=== PATIENT | female | born 1965 | race Caucasian/White ===

== ENCOUNTER 2017-02-12 21:31 | Emergency (ER) | payer MEDICAID, MEDICARE ==
[~2017-02-12] VITALS: Ht 149.9 cm; Wt 55.6 kg
[~2017-02-12 21:31] MED LIST: DULO60CA6 PO; GABA-585 PO; LEVO175T5 PO; LISI-338 PO; METO50TA10 PO; PARO20TA3 PO; POLY119P4 PO; PREG50CA PO; RANI150T6 PO; TRAZ150T49 PO
[2017-02-12] MEDS ORDERED: DEXAMETHASONE SOD PHOS 10 MG/ML VIAL IM ONE (22:15)
[2017-02-12] MEDS ORDERED: diphenhydrAMINE HCL 25 MG CAPSULE PO ONE (22:15)
[2017-02-12 22:20] LABS: BILIRUBIN,URINE NEG (NEG); CLARITY,URINE CLEAR; COLOR,URINE YELLOW; GLUCOSE,URINE NEG (NEG)
[2017-02-12 22:21] LABS: BACTERIA,URINE 0 /HPF (0-FEW); NITRITE,URINE NEG (NEG); RBC,URINE 0 /HPF (0-2); SQUAMOUS EPITHELIAL CELL,UR OCC /LPF; UROBILINOGEN,URINE 0.2 mg/dL (0.2 mg/dL); WBC,URINE OCC /HPF (0-4)
[2017-02-12] MEDS ORDERED: HYDR25TA PO (22:51)
[2017-02-12] MEDS ORDERED: NITR100C62 PO (22:51)
[2017-02-12] MEDS ORDERED: METH4TAB2 PO (22:51)
--- NOTE | 2017-02-12 22:51 | PHYS DOC ---
Past History Past Medical History: Hypertension, Hypothyroid, Hepatitis Past Surgical History: Appendectomy, Cholecystectomy, Hysterectomy Alcohol Use: Sober Drug Use: Cocaine, Marijuana Adult General Chief Complaint Chief Complaint: SKIN RASH/ABSCESS HPI HPI Patient is a 51 year old female who presents with complaint of rash. Patient states that she has been having rash along the back of her neck and her bilateral arms and trunk over the past 2 days. Patient states that she has been having significant itching associated with her rash. Patient states that she noticed a rash develop after she was seen in the emergency department a couple days ago at [facility]. Patient states that she was diagnosed with urinary tract infection and they had started her on an oral antibiotic. Patient does not know the name of the antibiotic. Patient states that she did not stay in the emergency department for full workup as she had to 10 to her son who has "heart problems." The patient came to the emergency department today as she thinks that the medication she was given may have caused her rash. Patient notes that she is having continued dysuria at this time. Patient denies any fevers, nausea, vomiting, chest pain. Patient states she is having lower abdominal pain in the vicinity of her bladder which she attributes to possible infection. Review of Systems Review of Systems Constitutional: Denies fever or chills [] Eyes: Denies change in visual acuity, redness, or eye pain [] HENT: Denies nasal congestion or sore throat [] Respiratory: Denies cough or shortness of breath [] Cardiovascular: Denies chest pain or edema [] GI: Lower abdominal pain, denies nausea, vomiting, bloody stools or diarrhea [] : Denies dysuria or hematuria [] Musculoskeletal: Denies back pain or joint pain [] Integument: Rash, pruritus [] Neurologic: Denies headache, focal weakness or sensory changes [] Endocrine: Denies polyuria or polydipsia [] Current Medications Current Medications Current Medications Medications (Trade) Dose Ordered Sig/Michelle Start Time Stop Time Status Last Admin Dose Admin Dexamethasone Sodium Phosphate (Decadron) 12 mg 1X ONCE 02/12/17 22:15 02/12/17 22:16 DC 02/12/17 22:05 12 MG Diphenhydramine HCl (Benadryl) 50 mg 1X ONCE 02/12/17 22:15 02/12/17 22:16 DC 02/12/17 22:05 50 MG Allergies Allergies Allergies Coded Allergies Type Severity Reaction Last Updated Verified Sulfa (Sulfonamide Antibiotics) Allergy Mild 08/18/14 Yes morphine Allergy Mild 08/18/14 Yes Physical Exam Physical Exam Constitutional: Alert, afebrile, no acute distress. [] HENT: Normocephalic, atraumatic, bilateral external ears normal, oropharynx moist, no oral exudates, nose normal. [] Eyes: PERRLA, EOMI, conjunctiva normal, no discharge. [] Neck: Normal range of motion, no tenderness, supple, no stridor. [] Cardiovascular:Heart rate regular rhythm, no murmur [] Lungs & Thorax: Bilateral breath sounds clear to auscultation [] Abdomen: Bowel sounds normal, soft, mild suprapubic tenderness, no masses, no pulsatile masses. [] Skin: Warm, dry, urticarial lesions present along neck, trunk, and bilateral upper extremities. [] Back: No tenderness, no CVA tenderness. [] Extremities: No tenderness, no cyanosis, no clubbing, ROM intact, no edema. [] Neurologic: Alert and oriented X 3, normal motor function, normal sensory function, no focal deficits noted. [] Current Patient Data Vital Signs Vital Signs Date Time Temp Pulse Resp B/P (MAP) Pulse Ox O2 Delivery O2 Flow Rate FiO2 02/12/17 21:31 98.4 86 16 98 Room Air Lab Results Laboratory Tests Test 02/12/17 21:40 Urine Collection Type Unknown Urine Color Yellow Urine Clarity Clear Urine pH 5.5 Urine Specific [place] 1.025 Urine Protein Neg (NEG-TRACE) Urine Glucose (UA) Neg mg/dL (NEG) Urine Ketones (Stick) Neg mg/dL (NEG) Urine Blood Neg (NEG) Urine Nitrite Neg (NEG) Urine Bilirubin Neg (NEG) Urine Urobilinogen Dipstick 0.2 mg/dL (0.2 mg/dL) Urine Leukocyte Esterase Neg (NEG) Urine RBC 0 /HPF (0-2) Urine WBC Occ /HPF (0-4) Urine Squamous Epithelial Cells Occ /LPF Urine Bacteria 0 /HPF (0-FEW) Urine Mucus Slight /LPF EKG EKG Not performed [] Radiology/Procedures Radiology/Procedures Not performed [] Course & Med Decision Making Course & Med Decision Making Pertinent Labs and Imaging studies reviewed. (See chart for details) The patient's UA does not show active signs of infection, however this may be due to partially treated urinary tract infection. Due to continued symptoms, the patient will be started on a seven-day course of Macrobid for treatment. Patient also was started on Decadron and Benadryl in the emergency department. The patient will continue on outpatient treatment with Medrol Dosepak and Atarax for symptoms. Advise follow-up in 3-5 days a primary doctor if symptoms are not improving and return to emergency department for any worsening symptoms. Dragon Disclaimer Dragon Disclaimer This chart was dictated in whole or in part using Voice Recognition software in a busy, high-work load, and often noisy Emergency Department environment. It may contain unintended and wholly unrecognized errors or omissions. Departure Departure: Impression: Primary Impression: Hives Additional Impression: UTI (urinary tract infection) Disposition: 01 HOME, SELF-CARE Condition: IMPROVED Referrals: PCP,NO (PCP) Patient Instructions: Hives, Urinary Tract Infection Additional Instructions: Follow-up to primary doctor in 3-5 days if symptoms are not improving. Return to emergency department for any worsening symptoms. Scripts Methylprednisolone (MEDROL) 4 Mg Tab.ds.pk 1 PKG PO UD, #1 PKG Prov: TIARA MIJARES MD 02/12/17 Hydroxyzine Hcl (HYDROXYZINE HCL) 25 Mg Tablet 1 TAB PO TID Y for ITCHING, #30 TAB Prov: TIARA MIJARES MD 02/12/17 Nitrofurantoin Monohyd/M-Cryst (MACROBID 100 MG CAPSULE) 100 Mg Capsule 1 CAP PO BID, #14 CAP Prov: TIARA MIJARES MD 02/12/17 Problem Qualifiers Additional Impression: UTI (urinary tract infection) Urinary tract infection type: site unspecified Hematuria presence: without hematuria Qualified Codes: N39.0 - Urinary tract infection, site not specified TIARA MIJARES MD Feb 12, 2017 22:51
[2017-02-12 23:30] VITALS: BP 114/79
== END 2017-02-12 23:30 | disposition home or self-care (01) ==
LOC: ER 21:31
DX: L50.9 Urticaria, unspecified (principal); N39.0 Urinary tract infection, site not specified; E03.9 Hypothyroidism, unspecified; I10 Essential (primary) hypertension; F14.10 Cocaine abuse, uncomplicated; F12.10 Cannabis abuse, uncomplicated; Z88.2 Allergy status to sulfonamides; Z88.5 Allergy status to narcotic agent
CPT/HCPCS: 81001; 96372; 99283; J1100; Q0163

== ENCOUNTER → 2017-03-13 | Outpatient (CLI) | payer MEDICARE ==
[2017-02-12 23:30] VITALS: BP 114/79
[~2017-03-13] MED LIST changes: +HYDR25TA PO; +METH4TAB2 PO; +NITR100C62 PO
--- NOTE | 2017-03-13 15:03 | RAD ---
Indication chronic back pain. AP and lateral views of the lumbar spine were obtained as well as a coned view targeted to the lumbosacral junction. Vertebral height and alignment are well maintained. There is mild disc space narrowing at L4-5. Facet degenerative changes are seen in the lower lumbar spine. Small osteophytes are seen at several levels. Moderately extensive vascular calcification is noted. IMPRESSION: Mild lumbar spondylosis
== END | disposition home or self-care (01) ==
LOC: DXRADRC 14:41
PROVIDERS: ATTEND Family Medicine
DX: M54.16 Radiculopathy, lumbar region (principal); M47.896 Other spondylosis, lumbar region
CPT/HCPCS: 72100

== ENCOUNTER → 2017-05-31 | Outpatient (CLI) | payer MEDICARE, OTHER ==
[~2017-05-31] MED LIST changes: +BUPIVACAINE MPF 0.25% 10 ML VIAL. ONE; +IOHEXOL 300 MG/ML 50 ML VIAL. ONE; +LIDOCAINE 1% PF 30 ML VIAL. ONE; -METO50TA10 PO; +METO50TA29 PO; +methylPREDNISolone ACETATE 40 MG/ML VIAL. ONE
[2017-05-31 13:18] LABS: AMPHETAMINE/METHAMPHETAMINE NEG (NEG); BARBITURATES NEG (NEG); BENZODIAZEPINES NEG (NEG); CANNABINOIDS POS (NEG); COCAINE POS (NEG); METHADONE NEG (NEG); OPIATES POS (NEG); PHENCYCLIDINE NEG (NEG)
== END | disposition home or self-care (01) ==
LOC: SURG 11:49
PROVIDERS: ATTEND Anesthesiology
DX: M46.1 Sacroiliitis, not elsewhere classified (principal); M19.91 Primary osteoarthritis, unspecified site; E07.9 Disorder of thyroid, unspecified; Z72.0 Tobacco use
CPT/HCPCS: 36415; 80307; G0260; J1030; J2001; J3490; Q9967; G0479

== ENCOUNTER 2017-07-24 07:52 | Emergency (ER) | payer OTHER ==
[~2017-07-24] VITALS: Ht 154.9 cm; Wt 57.2 kg
[~2017-07-24 07:52] MED LIST changes: -BUPIVACAINE MPF 0.25% 10 ML VIAL. ONE; -IOHEXOL 300 MG/ML 50 ML VIAL. ONE; -LIDOCAINE 1% PF 30 ML VIAL. ONE; -methylPREDNISolone ACETATE 40 MG/ML VIAL. ONE
[2017-07-24 08:30] LABS: BASO # 0.1 x10^3/uL (0.0-0.2); BASO % 0 % (0-3); EOS # 0.2 x10^3/uL (0.0-0.7); EOS % 2 % (0-3); HEMATOCRIT 45.7 % (36.0-47.0); HEMOGLOBIN 15.6 g/dL (12.0-15.5); LYMPH % 25 % (24-48); MEAN CORPUSCULAR HEMOGLOBIN 33 pg (25-35); MEAN CORPUSCULAR HGB CONC 34 g/dL (31-37); MEAN CORPUSCULAR VOLUME 98 fL (79-100); MONO # 1.1 x10^3/uL (0.0-1.1); MONO % 9 % (0-9); NEUT # 7.5 x10^3uL (1.8-7.7); NEUT % 64 % (31-73); PLATELET COUNT 285 x10^3/uL (140-400); RED BLOOD COUNT 4.66 x10^6/uL (3.50-5.40); RED CELL DISTRIBUTION WIDTH 14.7 % (11.5-14.5); WHITE BLOOD COUNT 11.9 x10^3/uL (4.0-11.0)
[2017-07-24] MEDS ORDERED: ONDANSETRON PF 4 MG/2 ML VIAL. IV ONE (08:30)
[2017-07-24] MEDS ORDERED: IV NORMAL SALINE 1,000ML 1,000 ML IV SCH (08:30)
[2017-07-24] MEDS ORDERED: KETOROLAC 30 MG/ML VIAL. IV ONE (08:45)
[2017-07-24 08:47] LABS: ALBUMIN 3.6 g/dL (3.4-5.0); ALBUMIN/GLOBULIN RATIO 0.7 (1.0-1.7); CALCIUM 8.9 mg/dL (8.5-10.1); CREATININE 0.9 mg/dL (0.6-1.0); GFR 65.2; POTASSIUM 4.1 mmol/L (3.5-5.1); TOTAL BILIRUBIN 0.2 mg/dL (0.2-1.0); TOTAL PROTEIN 8.6 g/dL (6.4-8.2)
--- NOTE | 2017-07-24 08:52 | PHYS DOC ---
Past History Past Medical History: Hypertension, Hypothyroid, Hepatitis Past Surgical History: Appendectomy, Cholecystectomy, Hysterectomy Smoking: Cigarettes Alcohol Use: Occasionally Drug Use: Cocaine, Marijuana Adult General Chief Complaint Chief Complaint: ABDOMINAL PAIN [facility] 52-year-old female patient complaining of gradual onset of right lower quadrant pain as a constant and aching pain with radiation to right flank for the last 5 days associated with 2 episodes of vomiting and 3-4 episodes of diarrhea a day. Patient states the pain gradually getting worse and states the pain was 6/10 and now rated her pain 8/10. Patient complaining of urinary frequency and dysuria and increase of the pain with urination without hematuria. Patient also complaining of anorexia without fever and chills and chest pain and shortness of breath. Patient states she had problem with her kidney with diagnosis of kidney cyst previously with the same pain. Patient states she took over-the- counter ibuprofen without change of her pain. Review of Systems Review of Systems Constitutional: Denies fever or chills [] Eyes: Denies change in visual acuity, redness, or eye pain [] HENT: Denies nasal congestion or sore throat [] Respiratory: Denies cough or shortness of breath [] Cardiovascular: No additional information not addressed in HPI [] GI: Reports abdominal pain, nausea, vomiting, diarrhea [] : Denies hematuria , reports dysuria and urinary frequency[] Musculoskeletal: Denies back pain or joint pain [] Integument: Denies rash or skin lesions [] Neurologic: Denies headache, focal weakness or sensory changes [] Endocrine: Denies polyuria or polydipsia [] All other systems were reviewed and found to be within normal limits, except as documented in this note. Current Medications Current Medications Current Medications Medications (Trade) Dose Ordered Sig/Michelle Start Time Stop Time Status Last Admin Dose Admin Ondansetron HCl (Zofran) 4 mg 1X ONCE 07/24/17 08:30 07/24/17 08:31 DC 07/24/17 08:32 4 MG Sodium Chloride 1,000 ml @ 1,000 mls/hr Q1H 07/24/17 08:30 07/24/17 09:29 07/24/17 08:31 1,000 MLS/HR Allergies Allergies Allergies Coded Allergies Type Severity Reaction Last Updated Verified Sulfa (Sulfonamide Antibiotics) Allergy Mild 08/18/14 Yes morphine Allergy Mild 08/18/14 Yes Physical Exam Physical Exam Constitutional: Moderate distress, anxious, non-toxic appearance. [] HENT: Normocephalic, atraumatic, bilateral external ears normal, oropharynx moist, no oral exudates, nose normal. [] Eyes: PERRLA, EOMI, conjunctiva normal, no discharge. [] Neck: Normal range of motion, no tenderness, supple, no stridor. [] Cardiovascular:Heart rate regular rhythm, no murmur [] Lungs & Thorax: Bilateral breath sounds clear to auscultation [] Abdomen: Bowel sounds normal, soft, no tenderness, no masses, no pulsatile masses right lower quadrant and suprapubic voluntary guarding. [] Skin: Warm, dry, no erythema, no rash. [] Back: No tenderness, no CVA tenderness. [] Extremities: No tenderness, no cyanosis, no clubbing, ROM intact, no edema. [] Neurologic: Alert and oriented X 3, normal motor function, normal sensory function, no focal deficits noted. [] Psychologic: Affect normal, judgement normal, denies suicidal and homicidal ideation Current Patient Data Vital Signs Vital Signs Date Time Temp Pulse Resp B/P (MAP) Pulse Ox O2 Delivery O2 Flow Rate FiO2 07/24/17 08:00 98.0 65 20 97 Room Air Lab Results Laboratory Tests Test 07/24/17 08:14 White Blood Count 11.9 x10^3/uL (4.0-11.0) H Red Blood Count 4.66 x10^6/uL (3.50-5.40) Hemoglobin 15.6 g/dL (12.0-15.5) H Hematocrit 45.7 % (36.0-47.0) Mean Corpuscular Volume 98 fL (79-100) Mean Corpuscular Hemoglobin 33 pg (25-35) Mean Corpuscular Hemoglobin Concent 34 g/dL (31-37) Red Cell Distribution Width 14.7 % (11.5-14.5) H Platelet Count 285 x10^3/uL (140-400) Neutrophils (%) (Auto) 64 % (31-73) Lymphocytes (%) (Auto) 25 % (24-48) Monocytes (%) (Auto) 9 % (0-9) Eosinophils (%) (Auto) 2 % (0-3) Basophils (%) (Auto) 0 % (0-3) Neutrophils # (Auto) 7.5 x10^3uL (1.8-7.7) Lymphocytes # (Auto) 3.0 x10^3/uL (1.0-4.8) Monocytes # (Auto) 1.1 x10^3/uL (0.0-1.1) Eosinophils # (Auto) 0.2 x10^3/uL (0.0-0.7) Basophils # (Auto) 0.1 x10^3/uL (0.0-0.2) EKG EKG [] Radiology/Procedures Radiology/Procedures [] Course & Med Decision Making Course & Med Decision Making Pertinent Labs and Imaging studies reviewed. (See chart for details) Evaluation of patient in ER showed 52-year-old male patient with complaining of lower abdominal and flank pain for the last several days. Patient was very anxious . Patient had voluntary guarding of lower abdomen. Labs and CT of abdomen and pelvis was unremarkable. Patient for definitive treatment in ER. Patient is chronic pain and seen at pain clinic. Patient instructed to continue home pain medication. Patient instructed to quit smoking. Dragon Disclaimer Dragon Disclaimer This electronic medical record was generated, in whole or in part, using a voice recognition dictation system. Departure Departure: Impression: Primary Impression: Acute gastroenteritis Additional Impressions: Anxiety Right flank pain History of hepatitis C Tobacco abuse Tobacco abuse counseling Disposition: HOME, SELF-CARE (At 1010) Condition: IMPROVED Referrals: ROSA MARIA ZENG MD (PCP) Patient Instructions: Flank Pain, Viral Gastroenteritis Additional Instructions: Take liquid diet for the next 24 hours Quit smoking Follow-up with your primary care physician in 2 or 3 days Scripts Naproxen (NAPROSYN) 500 Mg Tablet 500 MG PO BID for PAIN, #14 TAB Prov: ARTEMIO KABA MD 07/24/17 Ondansetron (ZOFRAN ODT) 4 Mg Tab.rapdis 4 MG PO TID PRN Y for NAUSEA, #14 Prov: ARTEMIO KABA MD 07/24/17 Problem Qualifiers ARTEMIO KABA MD Jul 24, 2017 08:52
[2017-07-24 09:01] LABS: AMPHETAMINE/METHAMPHETAMINE NEG (NEG); BARBITURATES NEG (NEG); BENZODIAZEPINES NEG (NEG); CANNABINOIDS POS (NEG); COCAINE NEG (NEG); METHADONE NEG (NEG); OPIATES NEG (NEG); PHENCYCLIDINE NEG (NEG)
[2017-07-24 09:07] LABS: BACTERIA,URINE FEW /HPF (0-FEW); BILIRUBIN,URINE NEG (NEG); CLARITY,URINE CLEAR; COLOR,URINE YELLOW; GLUCOSE,URINE NEG (NEG); NITRITE,URINE NEG (NEG); RBC,URINE RARE /HPF (0-2); SQUAMOUS EPITHELIAL CELL,UR MANY /LPF; UROBILINOGEN,URINE 0.2 mg/dL (0.2 mg/dL); WBC,URINE RARE /HPF (0-4)
--- NOTE | 2017-07-24 09:31 | RAD ---
CT scan of the abdomen and pelvis without contrast 07/24/2017 Clinical history: Right-sided abdominal pain. Technique: Unenhanced, contiguous, 3 mm axial sections were obtained through the abdomen and pelvis. One or more of the following individualized dose reduction techniques were utilized for this study: 1. Automated exposure control. 2. Adjustment of the mA and/or kV according to patient size. 3. Use of iterative reconstruction technique. Findings: Comparison study is dated 08/10/2016. Images through the lung bases demonstrate minimal dependent subsegmental atelectasis bilaterally. The liver, spleen, pancreas and adrenal glands are within normal limits. No renal or ureteral calculus is seen. There is no evidence of obstruction of either collecting system. A 2.4 cm rounded low-attenuation lesion is seen involving the medial aspect of the midpole of the left kidney. This likely represents a cyst. It is unchanged. Moderate atherosclerotic calcification of the abdominal aorta is seen. The abdominal aorta tapers normally. Surgical clips are seen within the gallbladder fossa consistent with a cholecystectomy. No free fluid or free air is seen within the abdomen. There is no evidence of bowel obstruction. Air and stool is seen throughout the colon. The appendix is not visualized. No inflammatory changes are seen within the cecum. Images through the pelvis demonstrate the urinary bladder distended with urine. Calcifications are seen within the pelvis consistent with phleboliths. No free fluid is seen. Very mild S-shaped curvature of the thoracolumbar spine is seen. Degenerative changes are seen involving the lower thoracic and throughout the lumbar spine and both hips. Impression: No acute abnormality is seen.
[2017-07-24] MEDS ORDERED: ORPHENADRINE CITRATE 60 MG/2 ML VIAL. IV ONE (10:00)
[2017-07-24] MEDS ORDERED: ONDA4TAB10 PO (10:15)
[2017-07-24] MEDS ORDERED: NAPR-683 PO (10:15)
[2017-07-24 10:35] VITALS: BP 114/65
== END 2017-07-24 10:35 | disposition home or self-care (01) ==
LOC: ER 07:52
DX: K52.9 Noninfective gastroenteritis and colitis, unspecified (principal); F41.9 Anxiety disorder, unspecified; F17.210 Nicotine dependence, cigarettes, uncomplicated; F12.10 Cannabis abuse, uncomplicated; F14.10 Cocaine abuse, uncomplicated; I10 Essential (primary) hypertension; E03.9 Hypothyroidism, unspecified; Z86.19 Personal history of other infectious and parasitic diseases; Z71.6 Tobacco abuse counseling; Z90.49 Acquired absence of other specified parts of digestive tract; Z90.710 Acquired absence of both cervix and uterus; Z88.2 Allergy status to sulfonamides; Z88.5 Allergy status to narcotic agent
CPT/HCPCS: 36415; 74176; 80053; 80307; 81001; 83690; 84484; 85025; 96361; 96374; 96375; 99285; J1885; J2360; J2405; G0479; J7030

== ENCOUNTER → 2017-10-30 | Outpatient (CLI) | payer OTHER ==
[~2017-10-30] MED LIST changes: +NAPR-683 PO; +ONDA4TAB10 PO
--- NOTE | 2017-11-01 11:30 | RAD ---
DATE: 11/01/2017 EXAM: DIGITAL SCREEN BILAT W/CAD HISTORY: Routine screening COMPARISON: Previous mammogram from 2014 This study was interpreted with the benefit of Computerized Aided Detection (CAD). FINDINGS: Breast Density: SCATTERED The breast parenchyma shows scattered fibroglandular densities. Breast parenchyma level B. The skin and nipples are within normal limits. No suspicious calcifications, spiculated mass or area of architectural distortion. IMPRESSION: No mammographic evidence of malignancy. Stable mammogram. BI-RADS CATEGORY: 2 BENIGN FINDING(S) RECOMMENDED FOLLOW-UP: 12M 12 MONTH FOLLOW-UP PQRS compliance statement: Patient information was entered into a reminder system with a target due date for the next mammogram. Mammography is a sensitive method for finding small breast cancers, but it does not detect them all and is not a substitute for careful clinical examination. A negative mammogram does not negate a clinically suspicious finding and should not result in delay in biopsying a clinically suspicious abnormality. "Our facility is accredited by the [employer] Mammography Program."
== END | disposition home or self-care (01) ==
LOC: MAMMO 12:36
PROVIDERS: ATTEND Family Medicine
DX: Z12.31 Encounter for screening mammogram for malignant neoplasm of breast (principal)
CPT/HCPCS: 77067

== ENCOUNTER → 2017-11-01 | Outpatient (CLI) | payer OTHER ==
[~2017-11-01] MED LIST changes: +IOHEXOL 300 MG/ML 75 ML VIAL. IV ONE
--- NOTE | 2017-11-01 10:51 | RAD ---
Indication: Elevated d-dimer. CT angiogram chest with 75 mL of Omnipaque 300 with multi planar reformats. Comparison: None Findings: Diagnostic quality PE study. There are no central, segmental or subsegmental filling defects in the pulmonary arteries. Heart is normal in size. Coronary artery calcifications noted. No pericardial or pleural effusion. No axillary, mediastinal or left hilar adenopathy. 1.2 cm small right hilar lymph node noted, nonspecific. Lungs are clear. Couple of low attenuating lesions are seen in the right hepatic lobe also seen on previous study from 2009 and are most likely hemangiomas. Visualized sections through the spleen, adrenals and pancreas are within normal limits. No suspicious bony lesion. Impression: No PE. No pneumonia. PQRS Compliance Statement: One or more of the following individualized dose reduction techniques were utilized for this examination: 1. Automated exposure control 2. Adjustment of the mA and/or kV according to patient size 3. Use of iterative reconstruction technique
== END | disposition home or self-care (01) ==
LOC: CT 09:30
PROVIDERS: ATTEND Family Medicine
DX: I25.10 Atherosclerotic heart disease of native coronary artery without angina pectoris (principal); J45.909 Unspecified asthma, uncomplicated; I12.9 Hypertensive chronic kidney disease with stage 1 through stage 4 chronic kidney disease, or unspecified chronic kidney disease; I50.9 Heart failure, unspecified; R79.1 Abnormal coagulation profile
CPT/HCPCS: 71275; Q9967

== ENCOUNTER → 2017-11-14 | Outpatient (CLI) | payer OTHER ==
[~2017-11-14] MED LIST changes: -IOHEXOL 300 MG/ML 75 ML VIAL. IV ONE
--- NOTE | 2017-11-14 14:10 | CARD ---
MR#: [id number] Date of Study: 11/14/2017 Ordering Physician: IESHA ALEXANDER, Referring Physician: IESHA ALEXANDER, Tech: Nicole Coleman RDCS APPROVED REPORT EXAM: Two-dimensional and M-mode echocardiogram with Doppler and color Doppler. Other Information Quality : Good INDICATION Hypertension/HCVD 2D DIMENSIONS RVDd2.7 (2.9-3.5cm)Left Atrium(2D)3.0 (1.6-4.0cm) IVSd0.9 (0.7-1.1cm)Aortic Root(2D)2.9 (2.0-3.7cm) LVDd3.9 (3.9-5.9cm)LVOT Diameter2.0 (1.8-2.4cm) PWd0.6 (0.7-1.1cm)LVDs2.7 (2.5-4.0cm) FS (%) 29.5 %SV36.7 ml LVEF(%)57.2 (>50%) Aortic Valve AoV Peak Abel.125.0cm/sAoV VTI23.3cm AO Peak GR.6.2mmHgLVOT Peak Abel.116.9cm/s LVOT VTI 22.00cmAO Mean GR.3mmHg ANY (VMAX)2.69ss1BUW (VTI)3.00cm2 Mitral Valve MV E Otjxavxx02.9cm/sMV DECEL [id number] MV A Smikasxf04.9cm/sE/A Ratio1.3 Tricuspid Valve TR P. Gcwnpddl540hm/sRAP YVEHLDDK3puOr TR Peak Gr.40wbVnKPDD13ahXo Pulmonary Vein S1 Egvhjcfn53.5cm/sD2 Ettdkwwc40.7cm/s LEFT VENTRICLE The left ventricle is normal size. There is normal left ventricular wall thickness. The left ventricu lar systolic function is normal and the ejection fraction is within normal range. The Ejection Fracti on is 55-60%. There is normal LV segmental wall motion. The left ventricular diastolic function and f illing is normal for age. RIGHT VENTRICLE The right ventricle is normal size. The right ventricular systolic function is normal. ATRIA The left atrium size is normal. The right atrium size is normal. The interatrial septum is intact wit h no evidence for an atrial septal defect or patent foramen ovale as noted on 2-D or Doppler imaging. AORTIC VALVE The aortic valve is normal in structure and function. Doppler and Color Flow revealed no significant aortic regurgitation. There is no significant aortic valvular stenosis. MITRAL VALVE The mitral valve is normal in structure and function. There is no evidence of mitral valve prolapse. There is no mitral valve stenosis. Doppler and Color-flow revealed trace mitral regurgitation. TRICUSPID VALVE The tricuspid valve is normal in structure and function. Doppler and Color Flow revealed trace to mil d tricuspid regurgitation. The PA pressure was estimated at 27 mmHg. There is no tricuspid valve sten osis. PULMONIC VALVE The pulmonary valve is normal in structure and function. Doppler and Color Flow revealed mild pulmoni c valvular regurgitation. There is no pulmonic valvular stenosis. GREAT VESSELS The aortic root is normal in size. The ascending aorta is mildly dilated at 3.4 cm. The IVC is normal in size and collapses >50% with inspiration. PERICARDIAL EFFUSION There is no evidence of significant pericardial effusion. Critical Notification Critical Value: No <Conclusion> The left ventricular systolic function is normal and the ejection fraction is within normal range. Th e Ejection Fraction is 55-60%. The ascending aorta is mildly dilated at 3.4 cm. Signed by : Iesha Alexander, Electronically Approved : 11/14/2017 14:10:21
== END | disposition home or self-care (01) ==
LOC: ECHO 12:20
PROVIDERS: ATTEND Internal Medicine Cardiovascular Disease
DX: I11.9 Hypertensive heart disease without heart failure (principal); I08.8 Other rheumatic multiple valve diseases
CPT/HCPCS: 93306

== ENCOUNTER 2018-04-28 18:39 | Emergency (ER) | payer OTHER ==
[~2018-04-28] VITALS: Ht 154.9 cm; Wt 60.3 kg
[~2018-04-28 18:39] MED LIST changes: +RANI150T21 PO; -RANI150T6 PO
--- NOTE | 2018-04-28 18:50 | ED.ADGEN ---
Past History Past Medical History: Hypertension, Hypothyroid, Hepatitis Past Surgical History: Appendectomy, Cholecystectomy, Hysterectomy Smoking: Cigarettes Alcohol Use: Occasionally Drug Use: Cocaine, Marijuana Adult General Chief Complaint Chief Complaint ".. I think I got a UTI.. I have not felt right for last 3 to 4 days.. " It hurts when I pee.. and I ve got some ...flank discomfort.. " HPI HPI Patient is a 53 year old female who presents with above hx and complaints of flank pain , supra Pubic discomfort and dysuria. Patient states symptoms are like previous urinary tract infections. Patient denies any history immunosuppression. Patient denies any vaginal discharge. Patient states his discomfort as increased for the past 4-5 days. Patient normally healthy. No recent travel. No history or concerns of STDs. No history of travel or ill contacts. Review of Systems Review of Systems Constitutional: Denies fever or chills [] Eyes: Denies change in visual acuity, redness, or eye pain [] HENT: Denies nasal congestion or sore throat [] Respiratory: Denies cough or shortness of breath [] Cardiovascular: No additional information not addressed in HPI [] GI: Denies abdominal pain, nausea, vomiting, bloody stools or diarrhea [ complaints of]bilateral flank discomfort : Complaints of dysuria or hematuria [] Musculoskeletal: Denies back pain or joint pain [] Integument: Denies rash or skin lesions [] Neurologic: Denies headache, focal weakness or sensory changes [] Endocrine: Denies polyuria or polydipsia [] All other systems were reviewed and found to be within normal limits, except as documented in this note. Family History Family History Noncontributory Current Medications Current Medications Current Medications Medications (Trade) Dose Ordered Sig/Michelle Start Time Stop Time Status Last Admin Dose Admin Ceftriaxone Sodium (Rocephin Im) 1 gm 1X ONCE 04/28/18 19:30 04/28/18 19:32 DC 04/28/18 19:58 1 GM Cephalexin HCl (Keflex) 500 mg 1X ONCE 04/28/18 22:15 04/28/18 22:28 DC 04/28/18 22:19 500 MG Ketorolac Tromethamine (Toradol Im) 60 mg 1X ONCE 04/28/18 20:45 04/28/18 20:46 DC 04/28/18 21:03 60 MG Lactated Ringer's 1,000 ml @ 1,000 mls/hr Q1H 04/28/18 20:29 04/28/18 21:28 DC 04/28/18 21:02 1,000 MLS/HR Allergies Allergies Allergies Coded Allergies Type Severity Reaction Last Updated Verified Sulfa (Sulfonamide Antibiotics) Allergy Mild 08/18/14 Yes morphine Allergy Mild 08/18/14 Yes Physical Exam Physical Exam Constitutional: Moderate to acute distress, intoxicated in appearance. [] HENT: Normocephalic, atraumatic, bilateral external ears normal, oropharynx moist, no oral exudates, nose normal. [] Eyes: PERRLA, EOMI, conjunctiva normal, no discharge. [] Neck: Normal range of motion, no tenderness, supple, no stridor. [] Cardiovascular:Heart rate regular rhythm, no murmur [] Lungs & Thorax: Bilateral breath sounds clear to auscultation [] Abdomen: Bowel sounds normal, soft, no tenderness, no masses, no pulsatile masses. Declines pelvic exam this time. Mild suprapubic tenderness. Mild bilateral flank pain on percussion [. Has] old surgery scars. Skin: Warm, dry, no erythema, no rash. [] Back: No tenderness, no CVA tenderness. [] Extremities: No tenderness, no cyanosis, no clubbing, ROM intact, no edema. [] No psoas or obturator sign Neurologic: Alert and oriented X 3, normal motor function, normal sensory function, no focal deficits noted. [] Psychologic: Affect anxious, judgement normal, mood normal. [] Current Patient Data Vital Signs Vital Signs Date Time Temp Pulse Resp B/P (MAP) Pulse Ox O2 Delivery O2 Flow Rate FiO2 04/28/18 21:56 62 17 137/84 (101) 95 Room Air 04/28/18 18:45 98.0 Lab Results Laboratory Tests Test 04/28/18 18:50 04/28/18 19:10 04/28/18 20:54 Urine Collection Type Unknown Urine Color [place] Urine Clarity Turbid Urine pH 5.5 Urine Specific [place] 1.020 Urine Protein Neg (NEG-TRACE) Urine Glucose (UA) Neg mg/dL (NEG) Urine Ketones (Stick) Neg mg/dL (NEG) Urine Blood Neg (NEG) Urine Nitrite Pos (NEG) Urine Bilirubin Neg (NEG) Urine Urobilinogen Dipstick 0.2 mg/dL (0.2 mg/dL) Urine Leukocyte Esterase Trace (NEG) Urine RBC Occ /HPF (0-2) Urine WBC 11-20 /HPF (0-4) Urine Squamous Epithelial Cells Few /LPF Urine Bacteria Mod /HPF (0-FEW) Urine Mucus Mod /LPF White Blood Count 8.0 x10^3/uL (4.0-11.0) Red Blood Count 4.43 x10^6/uL (3.50-5.40) Hemoglobin 14.8 g/dL (12.0-15.5) Hematocrit 42.8 % (36.0-47.0) Mean Corpuscular Volume 97 fL (79-100) Mean Corpuscular Hemoglobin 33 pg (25-35) Mean Corpuscular Hemoglobin Concent 35 g/dL (31-37) Red Cell Distribution Width 14.9 % (11.5-14.5) H Platelet Count 246 x10^3/uL (140-400) Neutrophils (%) (Auto) 47 % (31-73) Lymphocytes (%) (Auto) 42 % (24-48) Monocytes (%) (Auto) 8 % (0-9) Eosinophils (%) (Auto) 3 % (0-3) Basophils (%) (Auto) 0 % (0-3) Neutrophils # (Auto) 3.8 x10^3uL (1.8-7.7) Lymphocytes # (Auto) 3.4 x10^3/uL (1.0-4.8) Monocytes # (Auto) 0.7 x10^3/uL (0.0-1.1) Eosinophils # (Auto) 0.2 x10^3/uL (0.0-0.7) Basophils # (Auto) 0.0 x10^3/uL (0.0-0.2) Sodium Level 141 mmol/L (136-145) Potassium Level 3.5 mmol/L (3.5-5.1) Chloride Level 107 mmol/L (98-107) Carbon Dioxide Level 29 mmol/L (21-32) Anion Gap 5 (6-14) L Blood Urea Nitrogen 11 mg/dL (7-20) Creatinine 0.8 mg/dL (0.6-1.0) Estimated GFR (Cockcroft-Gault) 74.5 Glucose Level 103 mg/dL (70-99) H Calcium Level 9.0 mg/dL (8.5-10.1) Magnesium Level 1.9 mg/dL (1.8-2.4) Total Bilirubin 0.2 mg/dL (0.2-1.0) Direct Bilirubin 0.1 mg/dL (0.0-0.2) Aspartate Amino Transferase (AST) 30 U/L (15-37) Alanine Aminotransferase (ALT) 90 U/L (14-59) H Alkaline Phosphatase 137 U/L (46-116) H Total Protein 7.4 g/dL (6.4-8.2) Albumin 3.4 g/dL (3.4-5.0) Lipase 246 U/L (73-393) Prothrombin Time 9.5 SEC (9.4-11.4) Prothrombin Time INR 1.0 (0.9-1.1) PTT 27 SEC (23-33) EKG EKG [] Radiology/Procedures Radiology/Procedures I interpretation of acute abdomen film shows no free air under the diaphragm. No acute cardiopulmonary findings. Nonspecific bowel gas pattern.[] Course & Med Decision Making Course & Med Decision Making Pertinent Labs and Imaging studies reviewed. (See chart for details). Patient push vitamin C drinks. Patient take Tylenol and ibuprofen for discomfort. Patient to take Keflex 503 times a day. Patient follow-up cultures. Patient follow-up primary care. Patient return if any concerns. Clear fluid diet for the next 24 hours. Reexam if no improvement [] Final Impression Final Impression 1. UTI[] Dragon Disclaimer Dragon Disclaimer This electronic medical record was generated, in whole or in part, using a voice recognition dictation system. BE COLINDRES MD Apr 28, 2018 18:50
[2018-04-28 19:16] LABS: BILIRUBIN,URINE NEG (NEG); CLARITY,URINE TURBID; COLOR,URINE AMBER; GLUCOSE,URINE NEG (NEG); NITRITE,URINE POS (NEG); UROBILINOGEN,URINE 0.2 mg/dL (0.2 mg/dL)
[2018-04-28 19:17] LABS: BACTERIA,URINE MOD /HPF (0-FEW); RBC,URINE OCC /HPF (0-2); SQUAMOUS EPITHELIAL CELL,UR FEW /LPF
[2018-04-28] MEDS ORDERED: cefTRIAXone IM 1 GM VIAL IM ONE (19:30)
[2018-04-28] MEDS ORDERED: IV RINGERS SOLUTION,LACTATED 1,000 ML IV SCH (20:29)
[2018-04-28 20:43] LABS: BASO % 0 % (0-3); EOS # 0.2 x10^3/uL (0.0-0.7); EOS % 3 % (0-3); HEMATOCRIT 42.8 % (36.0-47.0); HEMOGLOBIN 14.8 g/dL (12.0-15.5); LYMPH # 3.4 x10^3/uL (1.0-4.8); LYMPH % 42 % (24-48); MEAN CORPUSCULAR HEMOGLOBIN 33 pg (25-35); MEAN CORPUSCULAR HGB CONC 35 g/dL (31-37); MEAN CORPUSCULAR VOLUME 97 fL (79-100); MONO # 0.7 x10^3/uL (0.0-1.1); MONO % 8 % (0-9); NEUT # 3.8 x10^3uL (1.8-7.7); NEUT % 47 % (31-73); PLATELET COUNT 246 x10^3/uL (140-400); RED BLOOD COUNT 4.43 x10^6/uL (3.50-5.40); RED CELL DISTRIBUTION WIDTH 14.9 % (11.5-14.5)
[2018-04-28] MEDS ORDERED: KETOROLAC 60 MG/2 ML VIAL. IM ONE (20:45)
[2018-04-28 20:50] LABS: ALBUMIN 3.4 g/dL (3.4-5.0); CREATININE 0.8 mg/dL (0.6-1.0); DIRECT BILIRUBIN 0.1 mg/dL (0.0-0.2); GFR 74.5; MAGNESIUM 1.9 mg/dL (1.8-2.4); POTASSIUM 3.5 mmol/L (3.5-5.1); TOTAL BILIRUBIN 0.2 mg/dL (0.2-1.0); TOTAL PROTEIN 7.4 g/dL (6.4-8.2)
--- NOTE | 2018-04-28 20:59 | RAD ---
EXAM: Frontal view of the chest, AP views of the abdomen in upright and supine positions. CLINICAL INDICATION: Right sided chest and abdomen pain today COMPARISON: None. FINDINGS and IMPRESSION: The heart is top normal in size. Aorta is tortuous. Minimal patchy opacities in the left lung base likely atelectasis or consolidation.. No pleural effusion or pneumothorax. No abnormal small or large bowel dilatation. Right upper quadrant cholecystectomy clips are seen. Moderate colonic stool content. No abnormal soft tissue mass effect. No suspicious calcifications are seen. No free intraperitoneal gas. Electronically signed by: Sahil Tijerina MD (04/28/2018 8:56 PM) [facility]
[2018-04-28 21:56] VITALS: BP 137/84
[2018-04-28] MEDS ORDERED: CEPH-264 PO (22:10)
[2018-04-28] MEDS ORDERED: CEPHALEXIN 250 MG CAPSULE PO ONE (22:15)
== END 2018-04-28 22:25 | disposition home or self-care (01) ==
LOC: ER 18:39
DX: N39.0 Urinary tract infection, site not specified (principal); I10 Essential (primary) hypertension; E03.9 Hypothyroidism, unspecified; Z90.49 Acquired absence of other specified parts of digestive tract; Z90.89 Acquired absence of other organs; Z90.710 Acquired absence of both cervix and uterus; F17.210 Nicotine dependence, cigarettes, uncomplicated; Z88.2 Allergy status to sulfonamides; Z88.5 Allergy status to narcotic agent
CPT/HCPCS: 36415; 74022; 80048; 80076; 81001; 83690; 83735; 84443; 85025; 85610; 85730; 87086; 96372; 99285; J0696; J1885; J7120; 87186; 96361

== ENCOUNTER 2018-06-20 15:42 | Emergency (ER) | payer MEDICARE, OTHER ==
[~2018-06-20] VITALS: Ht 154.9 cm; Wt 59.3 kg
[~2018-06-20 15:42] MED LIST changes: +CEPH-264 PO
[2018-06-20] MEDS ORDERED: KETOROLAC 60 MG/2 ML VIAL. IM ONE (16:15)
--- NOTE | 2018-06-20 16:16 | PHYS DOC ---
Past History Past Medical History: COPD, High Cholesterol, Hypertension, Hypothyroid, Hepatitis Past Surgical History: Appendectomy, Cholecystectomy, Hysterectomy Smoking: Cigarettes Alcohol Use: Occasionally Drug Use: Cocaine, Marijuana Adult General Chief Complaint Chief Complaint: mechanical fall HPI HPI Patient is a 53 year old female who presents with complaining of a fall and right chest pain. Patient states she had an accidental fall 5 days ago inside of her home from a standing position after she was tripped and fell on carpeted area and injured her right and left side of her chest without loss of consciousness. Patient complaining of constant right-sided anterior chest pain with radiation to her back since her fall and rated her pain 7/10 that getting worse with movement and taking deep breaths. Patient complaining of increasing dry cough and shortness of breath without fever and chills, focal neuro deficit , headache and neck pain. Patient also complaining of right elbow pain after her fall that getting worse with movement. Review of Systems Review of Systems Constitutional: Denies fever or chills [] Eyes: Denies change in visual acuity, redness, or eye pain [] HENT: Denies nasal congestion or sore throat [] Respiratory: Reports cough and shortness of breath Cardiovascular: No additional information not addressed in HPI [] GI: Denies abdominal pain, nausea, vomiting, bloody stools or diarrhea [] : Denies dysuria or hematuria [] Musculoskeletal: Denies back pain or joint pain [] Integument: Denies rash or skin lesions [] Neurologic: Denies headache, focal weakness or sensory changes [] Endocrine: Denies polyuria or polydipsia [] All other systems were reviewed and found to be within normal limits, except as documented in this note. Allergies Allergies Allergies Coded Allergies Type Severity Reaction Last Updated Verified Sulfa (Sulfonamide Antibiotics) Allergy Mild 08/18/14 Yes morphine Allergy Mild 08/18/14 Yes Physical Exam Physical Exam Constitutional: Well nourished, mild distress, non-toxic appearance. [] HENT: Normocephalic, atraumatic. Eyes: PERRLA, EOMI, conjunctiva normal, no discharge. [] Neck: Normal range of motion, no tenderness, supple, no stridor. [] Cardiovascular:Heart rate regular rhythm, no murmur [] Lungs & Thorax: Right anterior chest wall tenderness without crepitation or subcutaneous emphysema, decrease of air movement long without respiratory distress or intercostal retraction Abdomen: Bowel sounds normal, soft, no tenderness, no masses, no pulsatile masses. [] Skin: Warm, dry, no erythema, no rash. [] Back: No tenderness, no CVA tenderness. [] Extremities: Right elbow without sign of injury or ecchymosis or change of range of motion, no tenderness, no cyanosis, no clubbing, ROM intact, no edema. [] Neurologic: Alert and oriented X 3, normal motor function, normal sensory function, no focal deficits noted. [] Psychologic: Affect anxious, judgement normal, mood normal. [] EKG EKG []EKG interpreted by me. EKG at 1558 showed normal sinus rhythm at rate of 65, no acute distress and T-wave abnormalities Radiology/Procedures Radiology/Procedures [address] [address] IMAGING REPORT Signed PATIENT: GABRIELA DURAN ACCOUNT: [id number] : 1965 LOCATION: ER AGE: 53 SEX: F EXAM STATUS: REG ER ORD. PHYSICIAN: ARTEMIO KABA MD REASON: fall PROCEDURE: ELBOW RIGHT 3V History: Fall 5 days ago. Pain. Comparison: None. Findings: AP, lateral, and oblique views of the right elbow. No convincing joint effusion is identified as the posterior fat pad is not visualized. No acute fracture or dislocation is seen. Impression: No acute osseous traumatic injury identified. Electronically signed by: Narayan Lyons MD (06/20/2018 4:52 PM) [place] [id number] DICTATED AND SIGNED BY: NARAYAN LYONS MD DATE: 06/20/18 7355 CC: ARTEMIO KABA MD; ROSA MARIA ZENG MD ~ [address] [address] IMAGING REPORT Signed PATIENT: GABRIELA DURAN ACCOUNT: [id number] : 1965 LOCATION: ER AGE: 53 SEX: F EXAM STATUS: REG ER ORD. PHYSICIAN: ARTEMIO KABA MD REASON: fall PROCEDURE: RIBS RIGHT AND PA CHEST PA chest and right rib radiographs, 5 images. History: Fall 5 days ago, pain. Comparison: None. Findings: Cardiomediastinal silhouette is within normal limits for size. Bilateral lung suggs appear clear without evidence of infiltrate, effusion, or pneumothorax. There are 12 well-formed pairs of ribs. No displaced rib fractures are identified. Impression: 1. No acute abnormality identified in the chest. Electronically signed by: Narayan Lyons MD (06/20/2018 4:54 PM) [place] [id number] DICTATED AND SIGNED BY: NARAYAN LYONS MD DATE: 06/20/181652 CC: ARTEMIO KABA MD; ROSA MARIA ZENG MD ~ [place] [address] IMAGING REPORT Signed PATIENT: GABRIELA DURAN ACCOUNT: [id number] : 1965 LOCATION: ER AGE: 53 SEX: F EXAM STATUS: REG ER ORD. PHYSICIAN: ARTEMIO KABA MD REASON: fall PROCEDURE: THORACIC SPINE 3V History: Fall 5 days ago. Pain. Comparison: None. Findings: AP, lateral, swimmer's view of the thoracic spine. There are 12 rib-bearing thoracic-type vertebral bodies. No acute fracture or acute malalignment is identified. No paravertebral soft tissue swelling is seen. Impression: No acute osseous abnormality identified. Electronically signed by: Narayan Lyons MD (06/20/2018 4:58 PM) [place] [id number] DICTATED AND SIGNED BY: NARAYAN LYONS MD DATE: 06/20/181656 CC: ARTEMIO KABA MD; ROSA MARIA ZENG MD ~ Course & Med Decision Making Course & Med Decision Making Pertinent Labs and Imaging studies reviewed. (See chart for details) [] Dragon Disclaimer Dragon Disclaimer This electronic medical record was generated, in whole or in part, using a voice recognition dictation system. Departure Departure: Impression: Primary Impression: Chest wall injury Additional Impressions: Fall at home Tobacco abuse Tobacco abuse counseling Disposition: 01 HOME, SELF-CARE (at 1720) Condition: IMPROVED Referrals: ROSA MARIA ZENG MD (PCP) Patient Instructions: Chest Contusion, Chest Wall Pain, Smoking Cessation, Tips For Success Additional Instructions: Drink plenty of liquids Follow-up with your primary care physician in 3-5 days Return to ER if not getting better Continue your home inhaler Scripts Hydrocodone Bit/Acetaminophen (NORCO 5-325 TABLET) 1 Each Tablet 1 TAB PO PRN Q6HRS PRN for PAIN for 14 Days, TAB 0 Refills Prov: ARTEMIO KABA MD 06/20/18 Naproxen (NAPROSYN) 500 Mg Tablet 1 TAB PO BID for pain, #20 TAB Prov: ARTEMIO KABA MD 06/20/18 Methylprednisolone (MEDROL) 4 Mg Tab.ds.pk 1 PKG PO UD for Inflammation, #1 PKG Prov: ARTEMIO KABA MD 06/20/18 Problem Qualifiers ARTEMIO KABA MD Jun 20, 2018 16:16
--- NOTE | 2018-06-20 16:55 | RAD ---
History: Fall 5 days ago. Pain. Comparison: None. Findings: AP, lateral, and oblique views of the right elbow. No convincing joint effusion is identified as the posterior fat pad is not visualized. No acute fracture or dislocation is seen. Impression: No acute osseous traumatic injury identified. Electronically signed by: Narayan Powell MD (06/20/2018 4:52 PM) [facility]
--- NOTE | 2018-06-20 16:57 | RAD ---
PA chest and right rib radiographs, 5 images. History: Fall 5 days ago, pain. Comparison: None. Findings: Cardiomediastinal silhouette is within normal limits for size. Bilateral lung suggs appear clear without evidence of infiltrate, effusion, or pneumothorax. There are 12 well-formed pairs of ribs. No displaced rib fractures are identified. Impression: 1. No acute abnormality identified in the chest. Electronically signed by: Narayan Powell MD (06/20/2018 4:54 PM) [place] [id number]
--- NOTE | 2018-06-20 17:02 | RAD ---
History: Fall 5 days ago. Pain. Comparison: None. Findings: AP, lateral, swimmer's view of the thoracic spine. There are 12 rib-bearing thoracic-type vertebral bodies. No acute fracture or acute malalignment is identified. No paravertebral soft tissue swelling is seen. Impression: No acute osseous abnormality identified. Electronically signed by: Narayan Powell MD (06/20/2018 4:58 PM) [facility]
[2018-06-20] MEDS ORDERED: METH4TAB2 PO (17:23)
[2018-06-20] MEDS ORDERED: NAPR-683 PO (17:23)
[2018-06-20] MEDS ORDERED: HYDR-971 PO (17:23)
[2018-06-20 17:25] VITALS: BP 145/94
--- NOTE | 2018-06-21 07:25 | EKG ---
[address] [address] Test Date: 2018-06-20 Test Time: 15:58:13 Pat Name: GABRIELA DURAN Department: Room: Gender: F Spudder: : 1965 Requested By: ARTEMIO KABA Order Number: [id number] Reading MD: Emile Salazar MD Measurements Intervals [place] Rate: 65 P: 53 WI: 138 QRS: 60 QRSD: 74 T: 31 QT: 416 QTc: 433 Interpretive Statements SINUS RHYTHM Electronically Signed On 06-21-2018 10:45:43 [employer] by Emile Salazar MD
== END 2018-06-20 17:28 | disposition home or self-care (01) ==
LOC: ER 15:42
DX: S29.9XXA Unspecified injury of thorax, initial encounter (principal); M25.521 Pain in right elbow; M54.6 Pain in thoracic spine; J44.9 Chronic obstructive pulmonary disease, unspecified; E78.00 Pure hypercholesterolemia, unspecified; I10 Essential (primary) hypertension; E03.9 Hypothyroidism, unspecified; F17.210 Nicotine dependence, cigarettes, uncomplicated; Z71.6 Tobacco abuse counseling; Z88.2 Allergy status to sulfonamides; Z88.5 Allergy status to narcotic agent; W01.0XXA Fall on same level from slipping, tripping and stumbling without subsequent striking against object, initial encounter; Y93.89 Activity, other specified; Y92.098 Other place in other non-institutional residence as the place of occurrence of the external cause; Y99.8 Other external cause status
CPT/HCPCS: 71101; 72072; 73080; 93005; 96372; 99284; J1885

== ENCOUNTER 2018-10-16 13:39 | Emergency (ER) | payer MEDICARE, OTHER ==
[~2018-10-16] VITALS: Ht 154.9 cm; Wt 52.2 kg
[~2018-10-16 13:39] MED LIST changes: +HYDR-3165 PO
[2018-10-16] MEDS ORDERED: IV NORMAL SALINE 1,000ML 1,000 ML IV ONE (14:00)
[2018-10-16] MEDS ORDERED: KETOROLAC 30 MG/ML VIAL. IV ONE (14:00)
--- NOTE | 2018-10-16 14:10 | PHYS DOC ---
Past History Past Medical History: COPD, High Cholesterol, Hypertension, Hypothyroid, Hepatitis Past Surgical History: Appendectomy, Cholecystectomy, Hysterectomy Smoking: Cigarettes Alcohol Use: Occasionally Drug Use: Cocaine, Marijuana Social History Narrative: none in the last few months. Adult General Chief Complaint Chief Complaint: ABDOMINAL PAIN HPI HPI 53-year-old female presents with right flank pain. She states it's been going on for a couple of days. She states she just returned from [place]. She states she feels like she felt something pop like a bubble in her right flank area. She denies any dysuria or gross hematuria. She denies any vaginal bleeding or discharge. She's had no fever chills or sweats. She does report nausea and decreased by mouth intake secondary to the pain.[] Review of Systems Review of Systems Constitutional: Denies fever or chills [] Eyes: Denies change in visual acuity, redness, or eye pain [] HENT: Denies nasal congestion or sore throat [] Respiratory: Denies cough or shortness of breath [] Cardiovascular: No additional information not addressed in HPI [] GI: Per history of present illness[] : Denies dysuria or hematuria [] Musculoskeletal: Denies back pain or joint pain [] Integument: Denies rash or skin lesions [] Neurologic: Denies headache, focal weakness or sensory changes [] Endocrine: Denies polyuria or polydipsia [] All other systems were reviewed and found to be within normal limits, except as documented in this note. Current Medications Current Medications Current Medications Medications (Trade) Dose Ordered Sig/Michelle Start Time Stop Time Status Last Admin Dose Admin Ketorolac Tromethamine (Toradol 30mg Vial) 30 mg 1X ONCE 10/16/18 14:00 10/16/18 14:01 DC Sodium Chloride 1,000 ml @ 1,000 mls/hr 1X ONCE 10/16/18 14:00 10/16/18 14:59 Allergies Allergies Allergies Coded Allergies Type Severity Reaction Last Updated Verified Sulfa (Sulfonamide Antibiotics) Allergy Mild 06/20/18 Yes morphine Allergy Mild 06/20/18 Yes Physical Exam Physical Exam Constitutional: She is a bit disheveled and appears in mild distress but nontoxic. [] HENT: Normocephalic, atraumatic, bilateral external ears normal, oropharynx moist, no oral exudates, nose normal. [] Eyes: PERRLA, EOMI, conjunctiva normal, no discharge. [] Neck: Normal range of motion, no tenderness, supple, no stridor. [] Cardiovascular:Heart rate regular rhythm, no murmur [] Lungs & Thorax: Bilateral breath sounds clear to auscultation [] Abdomen: Bowel sounds normal, soft, no tenderness, no masses, no pulsatile masses. [] Skin: Warm, dry, no erythema, no rash. [] Back: No tenderness, no CVA tenderness. [] Extremities: No tenderness, no cyanosis, no clubbing, ROM intact, no edema. [] Neurologic: Alert and oriented X 3, normal motor function, normal sensory function, no focal deficits noted. [] Psychologic: Very anxious[] Current Patient Data Vital Signs Vital Signs Date Time Temp Pulse Resp B/P (MAP) Pulse Ox O2 Delivery O2 Flow Rate FiO2 10/16/18 13:55 98.2 78 18 92 Room Air EKG EKG [] Radiology/Procedures Radiology/Procedures [] Impressions: REASON: Right flank pain PROCEDURE: CT ABDOMEN PELVIS WO CONTRAST PQRS Compliance Statement: One or more of the following individualized dose reduction techniques were utilized for this examination: 1. Automated exposure control 2. Adjustment of the mA and/or kV according to patient size 3. Use of iterative reconstruction technique CT ABDOMEN PELVIS WO CONTRAST Clinical Indication: Abdominal pain, diarrhea for four months. Severe abdominal pain right side. Comparison: CT abdomen and pelvis of contrast, August 10, 2016. Technique: Helical CT imaging of the abdomen and pelvis is performed without IV or oral contrast. Findings: Evaluation of solid organs and bowel is limited without oral and IV contrast, decreasing sensitivity for detection of pathology. Minimal linear scarring or atelectasis in the right middle lobe. Coronary artery disease. Cardiac size normal. Cholecystectomy. Moderate atherosclerotic calcification of the abdominal aorta, no aneurysm. 2 probable hemangiomas in the upper right hepatic lobe are less well seen on noncontrast study. Third smaller lesion in the left hepatic lobe is not seen without contrast. Spleen, pancreas, and adrenal glands are normal. Left parapelvic cyst is similar, not well evaluated with out IV contrast. There is no renal calculus. No hydronephrosis or perinephric stranding. Stomach unremarkable. No dilated small bowel. Minimal sigmoid colon diverticulosis without inflammation. No colon wall thickening is identified. Appendix not identified, no secondary signs of appendicitis. No abdominal adenopathy or free fluid. Urinary bladder is not well distended. Hysterectomy. No pelvic free fluid. No acute bone abnormality. Question demineralization. IMPRESSION: No acute abdominal or pelvic abnormality. Course & Med Decision Making Course & Med Decision Making Pertinent Labs and Imaging studies reviewed. (See chart for details) [ED course: Evaluation reveals a 53-year-old female with some right flank pain. CT scan was unrevealing. She was given some IV fluids and Toradol for discomfort which did help alleviate her symptoms. She does have some bacteria and white cells in her urine so go ahead and treat with a short course of an robotics for urinary tract infection.] Dragon Disclaimer Dragon Disclaimer This electronic medical record was generated, in whole or in part, using a voice recognition dictation system. Departure Departure: Impression: Primary Impression: Abdominal pain Additional Impression: Urinary tract infection Disposition: HOME, SELF-CARE Condition: STABLE Referrals: ROSA MARIA ZENG MD (PCP) Patient Instructions: Abdominal Pain, Urinary Tract Infection Additional Instructions: Drink plenty of fluids. Return to the emergency department with any new or concerning symptoms Scripts Nitrofurantoin Monohyd/M-Cryst (MACROBID 100 MG CAPSULE) 100 Mg Capsule 1 CAP PO BID for UTI, #10 CAP Prov: LOTUS RUANO DO 10/16/18 Problem Qualifiers Primary Impression: Abdominal pain Abdominal location: right lower quadrant Qualified Codes: R10.31 - Right lower quadrant pain Additional Impression: Urinary tract infection Urinary tract infection type: acute cystitis Hematuria presence: without hematuria Qualified Codes: N30.00 - Acute cystitis without hematuria LOTUS RUANO DO Oct 16, 2018 14:10
[2018-10-16 14:18] LABS: BASO # 0.1 x10^3/uL (0.0-0.2); BASO % 1 % (0-3); EOS # 0.1 x10^3/uL (0.0-0.7); EOS % 2 % (0-3); HEMATOCRIT 45.4 % (36.0-47.0); HEMOGLOBIN 15.6 g/dL (12.0-15.5); LYMPH # 2.6 x10^3/uL (1.0-4.8); LYMPH % 34 % (24-48); MEAN CORPUSCULAR HEMOGLOBIN 33 pg (25-35); MEAN CORPUSCULAR HGB CONC 34 g/dL (31-37); MEAN CORPUSCULAR VOLUME 96 fL (79-100); MONO # 0.7 x10^3/uL (0.0-1.1); MONO % 9 % (0-9); NEUT # 4.2 x10^3uL (1.8-7.7); NEUT % 54 % (31-73); PLATELET COUNT 208 x10^3/uL (140-400); RED BLOOD COUNT 4.72 x10^6/uL (3.50-5.40); RED CELL DISTRIBUTION WIDTH 13.5 % (11.5-14.5); WHITE BLOOD COUNT 7.7 x10^3/uL (4.0-11.0)
[2018-10-16 14:28] LABS: ALBUMIN 3.7 g/dL (3.4-5.0); CREATININE 0.7 mg/dL (0.6-1.0); GFR 86.9; POTASSIUM 3.9 mmol/L (3.5-5.1); TOTAL BILIRUBIN 0.3 mg/dL (0.2-1.0); TOTAL PROTEIN 7.4 g/dL (6.4-8.2)
--- NOTE | 2018-10-16 14:32 | RAD ---
PQRS Compliance Statement: One or more of the following individualized dose reduction techniques were utilized for this examination: 1. Automated exposure control 2. Adjustment of the mA and/or kV according to patient size 3. Use of iterative reconstruction technique CT ABDOMEN PELVIS WO CONTRAST Clinical Indication: Abdominal pain, diarrhea for four months. Severe abdominal pain right side. Comparison: CT abdomen and pelvis of contrast, August 10, 2016. Technique: Helical CT imaging of the abdomen and pelvis is performed without IV or oral contrast. Findings: Evaluation of solid organs and bowel is limited without oral and IV contrast, decreasing sensitivity for detection of pathology. Minimal linear scarring or atelectasis in the right middle lobe. Coronary artery disease. Cardiac size normal. Cholecystectomy. Moderate atherosclerotic calcification of the abdominal aorta, no aneurysm. 2 probable hemangiomas in the upper right hepatic lobe are less well seen on noncontrast study. Third smaller lesion in the left hepatic lobe is not seen without contrast. Spleen, pancreas, and adrenal glands are normal. Left parapelvic cyst is similar, not well evaluated with out IV contrast. There is no renal calculus. No hydronephrosis or perinephric stranding. Stomach unremarkable. No dilated small bowel. Minimal sigmoid colon diverticulosis without inflammation. No colon wall thickening is identified. Appendix not identified, no secondary signs of appendicitis. No abdominal adenopathy or free fluid. Urinary bladder is not well distended. Hysterectomy. No pelvic free fluid. No acute bone abnormality. Question demineralization. IMPRESSION: No acute abdominal or pelvic abnormality. Electronically signed by: Moustapha Verdugo MD (10/16/2018 2:29 PM) [id number]
[2018-10-16 14:57] LABS: BILIRUBIN,URINE NEG (NEG); CLARITY,URINE CLEAR; COLOR,URINE AMBER; GLUCOSE,URINE NEG (NEG); NITRITE,URINE NEG (NEG); UROBILINOGEN,URINE 0.2 mg/dL (0.2 mg/dL)
[2018-10-16 14:58] LABS: BACTERIA,URINE MOD /HPF (0-FEW); RBC,URINE 0 /HPF (0-2); SQUAMOUS EPITHELIAL CELL,UR MOD /LPF
[2018-10-16] MEDS ORDERED: NITR100C62 PO (15:07)
[2018-10-16 15:10] VITALS: BP 126/80
[2019-01-15] MEDS ORDERED: BUSP15TA PO (11:04)
[2019-01-15] MEDS ORDERED: ASPI-630 PO (11:04)
[2019-01-15] MEDS ORDERED: MOME13HF2 IH (11:05)
[2019-01-15] MEDS ORDERED: PANT40TA5 PO (11:06)
[2019-01-15] MEDS ORDERED: AMLO10TA8 PO (11:07)
== END 2018-10-16 15:16 | disposition home or self-care (01) ==
LOC: ER 13:39
DX: N39.0 Urinary tract infection, site not specified (principal); R19.7 Diarrhea, unspecified; J44.9 Chronic obstructive pulmonary disease, unspecified; E78.00 Pure hypercholesterolemia, unspecified; I10 Essential (primary) hypertension; E03.9 Hypothyroidism, unspecified; F17.210 Nicotine dependence, cigarettes, uncomplicated; Z90.49 Acquired absence of other specified parts of digestive tract; Z90.89 Acquired absence of other organs; Z90.710 Acquired absence of both cervix and uterus; Z88.2 Allergy status to sulfonamides; Z88.5 Allergy status to narcotic agent
CPT/HCPCS: 36415; 74176; 80053; 81001; 83690; 85025; 87086; 96361; 96374; 99284; J1885; J7030

== ENCOUNTER 2018-10-19 10:27 | Emergency (ER) | payer MEDICARE, OTHER ==
[~2018-10-19] VITALS: Ht 154.9 cm; Wt 52.2 kg
--- NOTE | 2018-10-19 10:51 | PHYS DOC ---
Past History Past Medical History: COPD, High Cholesterol, Hypertension, Hypothyroid, Hepatitis Past Surgical History: Appendectomy, Cholecystectomy, Hysterectomy Smoking: Cigarettes Alcohol Use: Occasionally Drug Use: Cocaine, Marijuana Adult General Chief Complaint Chief Complaint: ABDOMINAL PAIN HPI HPI 53-year-old female presenting the emergency department today with abdominal pain. She describes the pain is generalized sharp shooting and present for more than 3 days. The pain comes and goes. She was seen on the of this month a few days ago where she was diagnosed with urinary tract infection and discharged home with oral Macrobid. She reports since starting the medication she has had a few episodes of vomiting associated with the abdominal pain. Review of systems is negative for fevers chills chest pain shortness of breath. All other review of systems is negative unless otherwise noted in history of present illness. ED course: 53-year-old female presenting with generalized abdominal pain that continues after being seen on the area did on arrival she is afebrile with a normal heart rate. On examination she is well-appearing. She has mild tenderness in the abdomen generally without any focal tenderness. No rebound tenderness or guarding. Blood work is unremarkable. Urinalysis shows small amount of white blood cells, no bacteria. Urine culture performed on the was negative for urinary tract infection. Similar urinalysis today. We will not prescribe antibiotics. We will give the patient oral Zofran to follow-up with her doctor tomorrow for repeat abdominal exam. The patient has been examined and was not found to have an emergency medical condition. The patient was then discharged home in stable condition to follow up with their primary care physician. They were to return if their symptoms worsened or if they were concerned for any reason. They were also instructed to return to the emergency department if they were unable to get the recommended and appropriate follow- up. [id number] discharge instructions and return precautions were given. Patient's questions were answered to their satisfaction. Patient is comfortable with plan. Review of Systems Review of Systems SEE ABOVE. Allergies Allergies Allergies Coded Allergies Type Severity Reaction Last Updated Verified Sulfa (Sulfonamide Antibiotics) Allergy Mild 06/20/18 Yes morphine Allergy Mild 06/20/18 Yes Physical Exam Physical Exam SEE ABOVE Constitutional: Well developed, well nourished, no acute distress, non-toxic appearance. [] HENT: Normocephalic, atraumatic, bilateral external ears normal, oropharynx moist, no oral exudates, nose normal. [] Eyes: PERRLA, EOMI, conjunctiva normal, no discharge. [] Neck: Normal range of motion, no tenderness, supple, no stridor. [] Cardiovascular:Heart rate regular rhythm, no murmur [] Lungs & Thorax: Bilateral breath sounds clear to auscultation [] Abdomen: Bowel sounds normal, soft, no masses, no pulsatile masses. as above Skin: Warm, dry, no erythema, no rash. [] Back: No tenderness, no CVA tenderness. [] Extremities: No tenderness, no cyanosis, no clubbing, ROM intact, no edema. [] Neurologic: Alert and oriented X 3, normal motor function, normal sensory function, no focal deficits noted. [] Psychologic: Affect normal, judgement normal, mood normal. [] Current Patient Data Vital Signs Vital Signs Date Time Temp Pulse Resp B/P (MAP) Pulse Ox O2 Delivery O2 Flow Rate FiO2 10/19/18 10:38 97.7 69 18 95 Room Air EKG EKG [] Radiology/Procedures Radiology/Procedures [] Course & Med Decision Making Course & Med Decision Making Pertinent Labs and Imaging studies reviewed. (See chart for details) [] Dragon Disclaimer Dragon Disclaimer This electronic medical record was generated, in whole or in part, using a voice recognition dictation system. Departure Departure: Impression: Primary Impression: Abdominal pain Disposition: 01 HOME, SELF-CARE Condition: STABLE Referrals: ROSA MARIA ZENG MD (PCP) Patient Instructions: Abdominal Pain (Nonspecific) Additional Instructions: Thank you for allowing us to participate in your care today. Return to the emergency department you have any new or worsening symptoms, or if you are concerned for any reason. Return to emergency department if you have any new or concerning symptoms including but not limited to fever, chills, nausea, vomiting, intractable pain, any new rashes, chest pain, shortness of air , uncontrolled bleeding, difficulty breathing, and/or vision loss. Follow up with your primary care physician within 1-2 days. Call your Primary Doctor tomorrow and inform them of your visit today. If you do not have a primary care provider we are happy to provide you with a list of our primary care providers contact information. This condition should be evaluated by your primary care physician and any recommended consulting services for continued management within 2 days after discharge. If at any time, you are having difficulty getting into your primary care doctor or a specialist, return to the emergency department. Scripts Ondansetron Hcl (ZOFRAN) 4 Mg Tablet 1 TAB PO PRN Q6HRS PRN for NAUSEA, #6 TAB Prov: ALEKSEY AZUL MD 10/19/18 ALEKSEY AZUL MD Oct 19, 2018 10:51
[2018-10-19] MEDS ORDERED: ONDANSETRON PF 4 MG/2 ML VIAL. ONE (10:53)
[2018-10-19] MEDS ORDERED: DICYCLOMINE 20 MG/2 ML AMPUL. IM ONE ×2 (10:53→11:00)
[2018-10-19 11:00] LABS: BASO % 0 % (0-3); EOS # 0.1 x10^3/uL (0.0-0.7); EOS % 1 % (0-3); HEMATOCRIT 45.7 % (36.0-47.0); HEMOGLOBIN 15.6 g/dL (12.0-15.5); LYMPH # 2.3 x10^3/uL (1.0-4.8); LYMPH % 24 % (24-48); MEAN CORPUSCULAR HEMOGLOBIN 33 pg (25-35); MEAN CORPUSCULAR HGB CONC 34 g/dL (31-37); MEAN CORPUSCULAR VOLUME 97 fL (79-100); MONO # 0.8 x10^3/uL (0.0-1.1); MONO % 9 % (0-9); NEUT # 6.1 x10^3uL (1.8-7.7); NEUT % 65 % (31-73); PLATELET COUNT 213 x10^3/uL (140-400); RED BLOOD COUNT 4.73 x10^6/uL (3.50-5.40); RED CELL DISTRIBUTION WIDTH 13.2 % (11.5-14.5); WHITE BLOOD COUNT 9.3 x10^3/uL (4.0-11.0)
[2018-10-19] MEDS ORDERED: IV NORMAL SALINE 1,000ML 1,000 ML IV ONE (11:00)
[2018-10-19] MEDS ORDERED: ONDANSETRON PF 4 MG/2 ML VIAL. IV ONE (11:00)
[2018-10-19 11:13] LABS: ALBUMIN 3.7 g/dL (3.4-5.0); CALCIUM 9.4 mg/dL (8.5-10.1); CREATININE 0.9 mg/dL (0.6-1.0); DIRECT BILIRUBIN 0.1 mg/dL (0.0-0.2); POTASSIUM 3.8 mmol/L (3.5-5.1); TOTAL BILIRUBIN 0.2 mg/dL (0.2-1.0); TOTAL PROTEIN 7.5 g/dL (6.4-8.2)
[2018-10-19] MEDS ORDERED: IOHEXOL 300 MG/ML 75 ML VIAL. IV ONE (11:15)
[2018-10-19 11:29] LABS: BACTERIA,URINE 0 /HPF (0-FEW); BILIRUBIN,URINE NEG (NEG); CLARITY,URINE HAZY; COLOR,URINE YELLOW; GLUCOSE,URINE NEG (NEG); NITRITE,URINE NEG (NEG); RBC,URINE 0 /HPF (0-2); SQUAMOUS EPITHELIAL CELL,UR MOD /LPF; UROBILINOGEN,URINE 0.2 mg/dL (0.2 mg/dL)
--- NOTE | 2018-10-19 11:34 | EKG ---
[address] [address] Test Date: 2018-10-19 Test Time: 10:53:13 Pat Name: GABRIELA DURAN Department: Room: Gender: F [employer]: : [id number] Requested By: ALEKSEY AZUL Order Number: [id number] Reading MD: Emile Salazar MD Measurements Intervals [place] Rate: 71 P: 62 IN: 130 QRS: 60 QRSD: 72 T: 28 QT: 426 QTc: 463 Interpretive Statements SINUS RHYTHM Electronically Signed On 10-25-2018 13:55:12 CDT by Emile Salazar MD
[2018-10-19 11:57] VITALS: BP 137/78
--- NOTE | 2018-10-19 12:04 | RAD ---
CT ABD PELV W/ IV CONTRST ONLY Indication: ABDOMINAL PAIN WITH DIARRHEA SINCE THE . 75MLS OMNI 300 IV CONTRAST Exposure: One or more of the following individualized dose reduction techniques were utilized for this examination: 1. Automated exposure control 2. Adjustment of the mA and/or kV according to patient size 3. Use of iterative reconstruction technique. Technique: Intravenous contrast was given. No oral contrast per request. FINDINGS: Comparison with noncontrast exam of October 16, 2018 Lung bases are clear. Hypodense lesions of the liver are identified. These appear stable since previous contrast enhanced exam of August 10, 2016. These are most likely hemangiomas. Spleen unremarkable. Pancreas unremarkable. No adrenal mass. Kidneys demonstrate symmetric enhancement. Left parapelvic cyst appears stable as compared with prior contrast enhanced study. Gallbladder surgically absent. Aorta calcified, no aneurysm. No significant lymph node enlargement. No evidence of bowel obstruction. No evidence of acute colitis. Appendix is not clearly visualized. No evidence of ascites or pneumoperitoneum. No significant urinary bladder wall thickening. No evidence of pelvic mass. Degenerative changes of the thoracic spine are again identified. IMPRESSION: 1. Multiple hepatic lesions appear similar, most compatible with hemangiomas. 2. No acute findings in the abdomen or pelvis. Electronically signed by: Narayan Nair MD (10/19/2018 12:01 PM) [facility]
[2018-10-19] MEDS ORDERED: ONDA4TAB7 PO (12:16)
[2019-01-15] MEDS ORDERED: BUSP15TA PO (11:04)
[2019-01-15] MEDS ORDERED: ASPI-630 PO (11:04)
[2019-01-15] MEDS ORDERED: MOME13HF2 IH (11:05)
[2019-01-15] MEDS ORDERED: PANT40TA5 PO (11:06)
[2019-01-15] MEDS ORDERED: AMLO10TA8 PO (11:07)
== END 2018-10-19 12:26 | disposition home or self-care (01) ==
LOC: ER 10:27
DX: R10.84 Generalized abdominal pain (principal); R11.11 Vomiting without nausea; J44.9 Chronic obstructive pulmonary disease, unspecified; E78.00 Pure hypercholesterolemia, unspecified; I10 Essential (primary) hypertension; E03.9 Hypothyroidism, unspecified; F17.210 Nicotine dependence, cigarettes, uncomplicated; Z90.89 Acquired absence of other organs; Z90.49 Acquired absence of other specified parts of digestive tract; Z90.710 Acquired absence of both cervix and uterus; Z88.2 Allergy status to sulfonamides; Z88.5 Allergy status to narcotic agent
CPT/HCPCS: 36415; 74177; 80048; 80076; 81001; 83690; 84484; 85025; 87086; 93005; 96361; 96372; 96374; 99284; J0500; J2405; Q9967; J7030

== ENCOUNTER → 2018-12-05 | Outpatient (CLI) | payer MEDICARE, OTHER ==
[~2018-12-05] MED LIST changes: +AMLO10TA8 PO; +ASPI-630 PO; +BUSP15TA PO; +HYOS0.1264 PO; +MELO7.5T29 PO; +MOME13HF2 IH; +ONDA4TAB7 PO; +PANT40TA5 PO
--- NOTE | 2018-12-05 14:38 | RAD ---
EXAM: Lumbar spine, 3 views. HISTORY: Pain. COMPARISON: None. FINDINGS: 3 views of the lumbar spine are obtained. There is no significant listhesis. The vertebral beltran are normal in height. There is degenerative endplate remodeling at multiple levels. There is disc space narrowing predominantly along the left aspect of L3-L4 and bilaterally at L5-S1. There are cholecystectomy clips. There is aortobiiliac atherosclerosis. IMPRESSION: 1. Multilevel degenerative change involving the lumbar spine, primarily at L3-L4 and L5-S1. 2. No acute osseous finding. Electronically signed by: Monserrat Arellano MD (12/05/2018 2:35 PM) [place] [id number]
--- NOTE | 2018-12-05 14:41 | RAD ---
EXAM: Cervical spine, 5 views. HISTORY: Pain. COMPARISON: None. FINDINGS: 5 views of the cervical spine are obtained. There is slight straightening of cervical lordosis. There is minimal retrolisthesis of C5 on C6. There is degenerative endplate remodeling and disc space narrowing at C5-C6, and to a lesser extent, C3-C4. There is multilevel facet arthropathy. There is suspected foraminal narrowing at C3-C4 and C5-C6. IMPRESSION: 1. Multilevel degenerative change involving the cervical spine, described in detail above. 2. No acute osseous finding. Electronically signed by: Monserrat Arellano MD (12/05/2018 2:39 PM) [place] [id number]
== END | disposition home or self-care (01) ==
LOC: RAD 13:53
PROVIDERS: ATTEND Family Medicine
DX: M47.817 Spondylosis without myelopathy or radiculopathy, lumbosacral region (principal); M48.061 Spinal stenosis, lumbar region without neurogenic claudication; I70.0 Atherosclerosis of aorta; Z90.49 Acquired absence of other specified parts of digestive tract
CPT/HCPCS: 72050; 72100

== ENCOUNTER 2019-01-11 13:05 | Emergency (ER) | payer MEDICARE, OTHER ==
[~2019-01-11] VITALS: Ht 154.9 cm; Wt 56.2 kg
[~2019-01-11 13:05] MED LIST changes: -AMLO10TA8 PO; -ASPI-630 PO; -BUSP15TA PO; -HYOS0.1264 PO; -MELO7.5T29 PO; -MOME13HF2 IH; -PANT40TA5 PO; +RANI-376 PO; -RANI150T21 PO
[2019-01-11] MEDS ORDERED: IV NORMAL SALINE 1,000ML 1,000 ML IV SCH (13:34)
[2019-01-11] MEDS ORDERED: IOHEXOL 240 MG/ML 50ML VIAL. ONE (13:38)
[2019-01-11 13:52] LABS: BASO % 0 % (0-3); EOS # 0.1 x10^3/uL (0.0-0.7); EOS % 1 % (0-3); HEMATOCRIT 42.4 % (36.0-47.0); HEMOGLOBIN 14.6 g/dL (12.0-15.5); LYMPH % 28 % (24-48); MEAN CORPUSCULAR HEMOGLOBIN 33 pg (25-35); MEAN CORPUSCULAR HGB CONC 34 g/dL (31-37); MEAN CORPUSCULAR VOLUME 97 fL (79-100); MONO # 0.6 x10^3/uL (0.0-1.1); MONO % 6 % (0-9); NEUT # 6.9 x10^3uL (1.8-7.7); NEUT % 65 % (31-73); PLATELET COUNT 248 x10^3/uL (140-400); RED BLOOD COUNT 4.39 x10^6/uL (3.50-5.40); RED CELL DISTRIBUTION WIDTH 15.7 % (11.5-14.5); WHITE BLOOD COUNT 10.6 x10^3/uL (4.0-11.0)
[2019-01-11] MEDS ORDERED: PROCHLORPERAZINE 10 MG/2 ML VIAL. IV ONE (14:00)
[2019-01-11] MEDS ORDERED: KETOROLAC 30 MG/ML VIAL. IV ONE (14:00)
[2019-01-11] MEDS ORDERED: IOHEXOL 300 MG/ML 75 ML VIAL. IV ONE (14:00)
--- NOTE | 2019-01-11 14:00 | PHYS DOC ---
Past History Past Medical History: Hypertension, Hypothyroid Past Surgical History: Cholecystectomy, Hysterectomy Smoking: Cigarettes Additional Smoking Information: 1 PPD 40+ YEARS Alcohol Use: None Drug Use: Marijuana Adult General Chief Complaint Chief Complaint: ABDOMINAL PAIN HPI HPI Patient is a 53-year-old female presents with diffuse abdominal pain. This started 4 days ago. It has been getting worse over time. No nausea, vomiting, or diarrhea. Worse with movement. No blood in the stool. Patient reports that she has stopped marijuana, approximately 16 days ago. No pain relief with acetaminophen. Reports the pain is moderate to severe. She has a long-standing history of abdominal pain issues, and is scheduled for an EGD in 3 days. History of cholecystectomy and hysterectomy.[] Review of Systems Review of Systems Constitutional: Denies fever or chills [] Eyes: Denies change in visual acuity, redness, or eye pain [] HENT: Denies nasal congestion or sore throat [] Respiratory: Denies cough or shortness of breath [] Cardiovascular: No chest pain or palpitations[] GI: See history of present illness[] : Denies dysuria or hematuria [] Musculoskeletal: Denies back pain or joint pain [] Integument: Denies rash or skin lesions [] Neurologic: Denies headache, focal weakness or sensory changes [] Endocrine: Denies polyuria or polydipsia [] All other systems were reviewed and found to be within normal limits, except as documented in this note. Current Medications Current Medications Current Medications Medications (Trade) Dose Ordered Sig/Michelle Start Time Stop Time Status Last Admin Dose Admin Iohexol (Omnipaque 240 Mg/ml) 50 ml STK-MED ONCE 01/11/19 13:38 01/11/19 13:39 DC Iohexol (Omnipaque 300 Mg/ml) 75 ml 1X ONCE 01/11/19 14:00 01/11/19 14:01 Ketorolac Tromethamine (Toradol 30mg Vial) 30 mg 1X ONCE 01/11/19 14:00 01/11/19 14:01 Prochlorperazine Edisylate (Compazine) 5 mg 1X ONCE 01/11/19 14:00 01/11/19 14:01 Sodium Chloride 1,000 ml @ 1,000 mls/hr Q1H 01/11/19 13:34 01/11/19 14:33 Allergies Allergies Allergies Coded Allergies Type Severity Reaction Last Updated Verified Sulfa (Sulfonamide Antibiotics) Allergy Mild 06/20/18 Yes morphine Allergy Mild 06/20/18 Yes Physical Exam Physical Exam Constitutional: Well developed, well nourished, mild discomfort, non-toxic appearance. [] HENT: Normocephalic, atraumatic, bilateral external ears normal, oropharynx moist, no oral exudates, nose normal. [] Eyes: PERRLA, EOMI, conjunctiva normal, no discharge. [] Neck: Normal range of motion, no tenderness, supple, no stridor. [] Cardiovascular:Heart rate regular rhythm, no murmur [] Lungs & Thorax: Bilateral breath sounds clear to auscultation [] Abdomen: Bowel sounds normal, soft, increased tenderness on the right side compared with the left. No rebound, able to sit up and lay back without any significant difficulty, no masses, no pulsatile masses. [] Skin: Warm, dry, no erythema, no rash. [] Back: No tenderness, no CVA tenderness. [] Extremities: No tenderness, no cyanosis, no clubbing, ROM intact, no edema. [] Neurologic: Alert and oriented X 3, normal motor function, normal sensory function, no focal deficits noted. [] Psychologic: Affect normal, judgement normal, mood normal. [] Current Patient Data Vital Signs Vital Signs Date Time Temp Pulse Resp B/P (MAP) Pulse Ox O2 Delivery O2 Flow Rate FiO2 01/11/19 13:27 97.9 67 16 95 Room Air EKG EKG [] Radiology/Procedures Radiology/Procedures CT ABD PELV W/ORAL IV CONTRAST Indication: Right lower quadrant pain, nausea, vomiting, symptoms for 4 days. Exposure: One or more of the following individualized dose reduction techniques were utilized for this examination: 1. Automated exposure control 2. Adjustment of the mA and/or kV according to patient size 3. Use of iterative reconstruction technique. Technique: Intravenous contrast was given. Oral contrast was given. Comparison with 10/19/2018. Mild linear markings in lung bases compatible with atelectasis or fibrosis. Low-density lesions are identified within the right and left lobes of the liver appears similar to the previous exam. Spleen is not enlarged. Pancreas unremarkable. No evidence of adrenal mass. Kidneys demonstrate symmetric enhancement without hydronephrosis or mass. Left parapelvic cyst appears similar. This again exert some mass effect upon the renal collecting system. Gallbladder surgically absent. Dense aortic calcifications without evidence of aneurysm. No evidence of aortic dissection. No significant lymph node enlargement. No significant small bowel distention. No evidence of acute colitis. The appendix is not visualized, no inflammatory type change or fluid is seen in the expected location of the right lower quadrant. No evidence of ascites or pneumoperitoneum. No evidence of pelvic mass. Urinary bladder is mildly distended. Degenerative spondylosis. No aggressive bone destruction. IMPRESSION: 1. Appendix is not clearly visualized, but no inflammatory changes or fluid is identified in right lower quadrant. 2. No acute findings are seen. 3. Stable hepatic lesions.[] Course & Med Decision Making Course & Med Decision Making Pertinent Labs and Imaging studies reviewed. (See chart for details) ED course: Patient arrived, was placed in bed, and tolerated exam well. She was transported to and from [place] after drinking contrast, without any complications. She achieve some pain relief with the medications administered. After the return of lab and imaging studies, these were discussed with the patient who voiced understanding. All questions were answered. She was discharged in improved condition. Medical decision making: There is no evidence of appendicitis, no obstruction, no perforation, no pyelonephritis. This may be related to the urinary tract infection for which she is undergoing treatment, having started antibiotics yesterday. Do not believe this is specifically related to the sulfa medicine that she started, despite the allergic reaction that is noted, her allergic reaction is red splotches on her skin. No evidence of pancreatitis. No evidence of this being cholecystitis and she has had previous cholecystectomy. No evidenc e of given that she has had a hysterectomy.[] Dragon Disclaimer Dragon Disclaimer This electronic medical record was generated, in whole or in part, using a voice recognition dictation system. Departure Departure: Impression: Primary Impression: Abdominal pain Additional Impression: Urinary tract infection Disposition: 01 HOME, SELF-CARE Condition: IMPROVED Referrals: ROSA MARIA ZENG MD (PCP) Follow-up in 2 days Patient Instructions: Abdominal Pain, Urinary Tract Infection Additional Instructions: Drink plenty of fluids. Stop your current antibiotic, the Bactrim/Septra. Start the new antibiotic and take it as directed. Follow-up with your regular doctor in 2 days. Return to the ER if worsening pain or any other concerns. Scripts Meloxicam (MELOXICAM) 7.5 Mg Tablet 7.5 MG PO DAILY for PAIN, #20 TAB Prov: PETR DÍAZ DO 01/11/19 Hyoscyamine Sulfate (LEVSIN) 0.125 Mg Tablet 0.125 MG PO QID for abdominal pain/cramping, #30 TAB Prov: PETR DÍAZ DO 01/11/19 Cephalexin (KEFLEX) 500 Mg Capsule 500 MG PO TID for UTI for 10 Days, #30 CAP Prov: PETR DÍAZ DO 01/11/19 Problem Qualifiers Primary Impression: Abdominal pain Abdominal location: generalized Qualified Codes: R10.84 - Generalized abdominal pain Additional Impression: Urinary tract infection Urinary tract infection type: site unspecified Hematuria presence: without hematuria Qualified Codes: N39.0 - Urinary tract infection, site not specified PETR DÍAZ DO Jan 11, 2019 14:00
[2019-01-11 14:01] LABS: ALBUMIN 3.7 g/dL (3.4-5.0); ALBUMIN/GLOBULIN RATIO 0.9 (1.0-1.7); CALCIUM 8.8 mg/dL (8.5-10.1); CREATININE 0.9 mg/dL (0.6-1.0); POTASSIUM 4.1 mmol/L (3.5-5.1); TOTAL BILIRUBIN 0.3 mg/dL (0.2-1.0); TOTAL PROTEIN 7.7 g/dL (6.4-8.2)
[2019-01-11 14:01] LABS: BARBITURATES NEG (NEG); BENZODIAZEPINES NEG (NEG); CANNABINOIDS NEG (NEG); COCAINE NEG (NEG); METHADONE NEG (NEG); OPIATES NEG (NEG); PHENCYCLIDINE NEG (NEG)
[2019-01-11 14:03] LABS: AMPHETAMINE/METHAMPHETAMINE NEG (NEG)
[2019-01-11 14:14] LABS: CLARITY,URINE CLEAR; COLOR,URINE ORANGE
[2019-01-11 14:16] LABS: BACTERIA,URINE FEW /HPF (0-FEW); RBC,URINE OCC /HPF (0-2); SQUAMOUS EPITHELIAL CELL,UR FEW /LPF
[2019-01-11] MEDS ORDERED: HYOSCYAMINE 0.125 MG TAB.RAPDIS PO ONE (14:45)
--- NOTE | 2019-01-11 15:07 | RAD ---
CT ABD PELV W/ORAL IV CONTRAST Indication: Right lower quadrant pain, nausea, vomiting, symptoms for 4 days. Exposure: One or more of the following individualized dose reduction techniques were utilized for this examination: 1. Automated exposure control 2. Adjustment of the mA and/or kV according to patient size 3. Use of iterative reconstruction technique. Technique: Intravenous contrast was given. Oral contrast was given. Comparison with 10/19/2018. Mild linear markings in lung bases compatible with atelectasis or fibrosis. Low-density lesions are identified within the right and left lobes of the liver appears similar to the previous exam. Spleen is not enlarged. Pancreas unremarkable. No evidence of adrenal mass. Kidneys demonstrate symmetric enhancement without hydronephrosis or mass. Left parapelvic cyst appears similar. This again exert some mass effect upon the renal collecting system. Gallbladder surgically absent. Dense aortic calcifications without evidence of aneurysm. No evidence of aortic dissection. No significant lymph node enlargement. No significant small bowel distention. No evidence of acute colitis. The appendix is not visualized, no inflammatory type change or fluid is seen in the expected location of the right lower quadrant. No evidence of ascites or pneumoperitoneum. No evidence of pelvic mass. Urinary bladder is mildly distended. Degenerative spondylosis. No aggressive bone destruction. IMPRESSION: 1. Appendix is not clearly visualized, but no inflammatory changes or fluid is identified in right lower quadrant. 2. No acute findings are seen. 3. Stable hepatic lesions. Electronically signed by: Narayan Nair MD (01/11/2019 3:05 PM) [id number]
[2019-01-11] MEDS ORDERED: HYOS0.1264 PO (15:27)
[2019-01-11] MEDS ORDERED: CEPH-264 PO (15:27)
[2019-01-11] MEDS ORDERED: MELO7.5T29 PO (15:27)
[2019-01-11 15:36] VITALS: BP 117/56
[2019-01-15] MEDS ORDERED: ASPI-630 PO (11:04)
[2019-01-15] MEDS ORDERED: BUSP15TA PO (11:04)
[2019-01-15] MEDS ORDERED: MOME13HF2 IH (11:05)
[2019-01-15] MEDS ORDERED: PANT40TA5 PO (11:06)
[2019-01-15] MEDS ORDERED: AMLO10TA8 PO (11:07)
== END 2019-01-11 15:37 | disposition home or self-care (01) ==
LOC: ER 13:05
DX: N39.0 Urinary tract infection, site not specified (principal); I10 Essential (primary) hypertension; E03.9 Hypothyroidism, unspecified; F17.210 Nicotine dependence, cigarettes, uncomplicated; Z90.49 Acquired absence of other specified parts of digestive tract; Z90.710 Acquired absence of both cervix and uterus; Z88.2 Allergy status to sulfonamides; Z88.5 Allergy status to narcotic agent
CPT/HCPCS: 36415; 74177; 80053; 80307; 81001; 83690; 85025; 85610; 87086; 96361; 96374; 96375; 99285; J0780; J1885; Q9967; J7030

== ENCOUNTER → 2019-01-15 | Day surgery (SDC) | payer MEDICARE, OTHER ==
[~2019-01-15] MED LIST changes: +ALBUTEROL SULFATE 2.5 MG/3 ML NEBU. NEB PRN; +AMLO10TA8 PO; +ASPI-630 PO; +ATROPINE 0.5 MG/5 ML DISP.SYRIN. IV PRN; +BUSP15TA PO; +HYOS0.1264 PO; +IV RINGERS SOLUTION,LACTATED 1,000 ML IV SCH; +LIDOCAINE 2% PF Vial for OR 5 ML VIAL. ONE; +MELO7.5T29 PO; +MOME13HF2 IH; +NALOXONE 0.4 MG/ML VIAL. IV PRN; +ONDANSETRON PF 4 MG/2 ML VIAL. IV PRN; +PANT40TA5 PO; +PROPOFOL 20 ML IV ONE; +diphenhydrAMINE 50 MG/ML VIAL IV PRN
[2019-01-15 11:48] VITALS: BP 115/56
== END | disposition home or self-care (01) ==
LOC: SURG 09:53
PROVIDERS: ATTEND Internal Medicine Gastroenterology
DX: K29.50 Unspecified chronic gastritis without bleeding (principal); F41.9 Anxiety disorder, unspecified; E03.9 Hypothyroidism, unspecified; F31.9 Bipolar disorder, unspecified; F43.10 Post-traumatic stress disorder, unspecified; Z86.19 Personal history of other infectious and parasitic diseases; Z90.49 Acquired absence of other specified parts of digestive tract; Z90.710 Acquired absence of both cervix and uterus; Z98.890 Other specified postprocedural states; Z72.89 Other problems related to lifestyle; Z88.6 Allergy status to analgesic agent; Z88.1 Allergy status to other antibiotic agents
CPT/HCPCS: 43239; J2704; J7120; J2001

== ENCOUNTER → 2019-01-16 | Outpatient (CLI) | payer OTHER ==
[2019-01-11 15:36] VITALS: BP_DIAS 56
[2019-01-15 11:48] VITALS: BP_SYST 115
[~2019-01-16] MED LIST changes: -ALBUTEROL SULFATE 2.5 MG/3 ML NEBU. NEB PRN; -ATROPINE 0.5 MG/5 ML DISP.SYRIN. IV PRN; -IV RINGERS SOLUTION,LACTATED 1,000 ML IV SCH; -LIDOCAINE 2% PF Vial for OR 5 ML VIAL. ONE; -NALOXONE 0.4 MG/ML VIAL. IV PRN; -ONDANSETRON PF 4 MG/2 ML VIAL. IV PRN; -PROPOFOL 20 ML IV ONE; -diphenhydrAMINE 50 MG/ML VIAL IV PRN
--- NOTE | 2019-01-16 16:20 | RAD ---
DATE: 01/16/2019 EXAM: MAMMO HIEN SCREENING BILATERAL HISTORY: Routine screening COMPARISON: 10/30/2017 This study was interpreted with the benefit of Computerized Aided Detection (CAD). Breast Density: SCATTERED The breast parenchyma shows scattered fibroglandular densities. Breast parenchyma level B. FINDINGS: 2-D and 3-D tomosynthesis imaging was performed in CC and MLO projections. No new or enlarging breast densities are seen. Benign type calcification is present. No suspicious microcalcifications have developed. IMPRESSION: There is no mammographic evidence of malignancy in either breast. BI-RADS CATEGORY: 2 BENIGN FINDING(S) RECOMMENDED FOLLOW-UP: 12M 12 MONTH FOLLOW-UP PQRS compliance statement: Patient information was entered into a reminder system with a target due date for the next mammogram. Mammography is a sensitive method for finding small breast cancers, but it does not detect them all and is not a substitute for careful clinical examination. A negative mammogram does not negate a clinically suspicious finding and should not result in delay in biopsying a clinically suspicious abnormality. "Our facility is accredited by the [employer] Mammography Program."
== END | disposition home or self-care (01) ==
LOC: MAMMO 10:49
PROVIDERS: ATTEND Physician Assistant Medical
DX: Z12.31 Encounter for screening mammogram for malignant neoplasm of breast (principal); N64.89 Other specified disorders of breast
CPT/HCPCS: 77063; 77067

== ENCOUNTER → 2019-01-18 | Outpatient (CLI) | payer OTHER ==
[2019-01-15 11:48] VITALS: BP 115/56
[2019-01-18 13:09] LABS: ALBUMIN 3.7 g/dL (3.4-5.0); ALBUMIN/GLOBULIN RATIO 0.9 (1.0-1.7); CALCIUM 9.2 mg/dL (8.5-10.1); CREATININE 0.9 mg/dL (0.6-1.0); POTASSIUM 4.2 mmol/L (3.5-5.1); TOTAL BILIRUBIN 0.2 mg/dL (0.2-1.0); TOTAL PROTEIN 7.6 g/dL (6.4-8.2)
[2019-01-20 17:06] LABS: HCV ULTRA QUANT PCR 8080000 IU/mL (.)
== END | disposition home or self-care (01) ==
LOC: LAB 12:01
PROVIDERS: ATTEND Internal Medicine Gastroenterology
DX: B18.2 Chronic viral hepatitis C (principal)
CPT/HCPCS: 80053; 87340; 87521; 87902

== ENCOUNTER 2019-04-29 16:26 | Emergency (ER) | payer OTHER ==
[~2019-04-29] VITALS: Ht 154.9 cm; Wt 52.2 kg
[2019-04-29] MEDS ORDERED: IV NORMAL SALINE 1,000ML 1,000 ML IV SCH (16:42)
--- NOTE | 2019-04-29 16:47 | PHYS DOC ---
Past History Past Medical History: Hypertension, Hypothyroid, Hepatitis (Hep C) (ANDRES MAHMOOD MD) Past Surgical History: Cholecystectomy, Hysterectomy (ANDRES MAHMOOD MD) Smoking: Cigarettes Alcohol Use: None Drug Use: Marijuana (ANDRES MAHMOOD MD) Adult General Chief Complaint Chief Complaint: PAIN ON URINATION [facility] HPI Patient is a 54-year-old female who presents to the emergency department for evaluation. She states that for the past 3 days, she has had some right flank pain, radiating towards her right groin, along with some urinary frequency and dysuria. She has not noticed any hematuria. She reports subjective fevers. She has not had any nausea, vomiting, dizziness or lightheadedness. There are no alleviating or exacerbating factors to her symptoms, except as noted above. (ANDRES MAHMOOD MD) Review of Systems Review of Systems Constitutional: Denies lethargy or chills [] Eyes: Denies change in visual acuity, redness, or eye pain [] HENT: Denies nasal congestion or sore throat [] Respiratory: Denies cough or shortness of breath [] Cardiovascular: The patient denies any shortness of breath, chest pain, palpitations, or orthopnea [] GI: Denies abdominal pain, nausea, vomiting, bloody stools or diarrhea [] : No additional information not addressed in HPI [] Musculoskeletal: Denies back pain or joint pain [] Integument: Denies rash or skin lesions [] Neurologic: Denies headache, focal weakness or sensory changes [] Endocrine: Denies polyuria or polydipsia [] All other systems were reviewed and found to be within normal limits, except as documented in this note. (ANDRES MAMHOOD MD) Allergies Allergies Allergies Coded Allergies Type Severity Reaction Last Updated Verified Sulfa (Sulfonamide Antibiotics) Allergy Mild 01/15/19 Yes morphine Allergy Mild 01/15/19 Yes (ANDRES MAHMOOD MD) Physical Exam Physical Exam PHYSICAL EXAM: CONSTITUTIONAL: Well developed, well nourished HEAD: normocephalic, atraumatic EENT: PERRL, EOMI. Conjunctivae normal color, sclerae non-icteric; moist mucous membranes. NECK: Supple, non-tender; no meningismus. LUNGS: Lungs CTA, breathing even and unlabored. Normal air movement. HEART: Regular rate and rhythm, no murmur CHEST: No deformity; non-tender ABDOMEN: The abdomen is soft, there is diffuse tenderness to palpation to the right mid and lower abdomen as well as the suprapubic area, without rebound or guarding, the remainder the abdomen is relatively soft and non-tender, no masses or bruits. EXTREM: Normal ROM; no deformity, no calf tenderness. Normal pulses palpable in all extremities. There is no pedal edema. SKIN: No rash; no diaphoresis NEURO: Alert; normal speech and cognition; CN's grossly intact; strength grossly intact without focal deficit. BACK: There is moderate right-sided CVA TTP. (ANDRES MAHMOOD MD) EKG EKG [] (ANDRES MAHMOOD MD) Radiology/Procedures Radiology/Procedures [PROCEDURE: CT ABDOMEN PELVIS WO CONTRAST EXAM: Abdomen and pelvis CT without intravenous contrast. HISTORY: Right flank pain. TECHNIQUE: Computed tomographic images of the abdomen and pelvis were obtained without contrast. Multiplanar reformatting was performed. *One or more of the following individualized dose reduction techniques were utilized for this examination: 1. Automated exposure control. 2. Adjustment of the mA and/or kV according to patient size. 3. Use of iterative reconstruction technique. COMPARISON: 01/11/2019. FINDINGS: Evaluation of the lower thorax demonstrates lingular and right middle lobe atelectasis or scarring. There is bilateral basilar atelectasis. There is a stable 5 mm pleural-based nodular opacity within the anterior left lung base, benign in appearance. There are small hypodense lesions within the superior right hepatic lobe. The gallbladder is surgically absent. There is biliary ductal dilatation likely due to reservoir effect status post cystectomy. The pancreas is unremarkable. There is a calcification along the pancreatic tail which is likely vascular in etiology. The spleen and adrenal glands are unremarkable. There are left renal parapelvic cysts, better characterized on the prior contrast-enhanced exam. There is no evidence of nephrolithiasis or hydronephrosis. There is stable punctate calcifications along the left posterior urinary bladder wall, likely associated with the vaginal cuff status post hysterectomy. No abnormally thickened or dilated loop of bowel is seen. There are few distal colonic diverticula. There is heavy calcified atherosclerotic plaque within the aorta. There is no aneurysm. There is no suspicious osseous lesion. There are degenerative changes involving the spine. There is suspected bone demineralization. IMPRESSION: 1. Left renal parapelvic cysts, better characterized on the prior contrast-enhanced exam. There is no evidence of nephrolithiasis or obstructive uropathy. 2. Small hypodense lesions within the superior right hepatic lobe, better characterized on the prior contrast-enhanced CT. These may be hemangiomas. Liver sonography can be performed for confirmation if there is clinical concern. 3. Few distal colonic diverticula.] (ANDRES MAHMOOD MD) Impressions: EXAM: Abdomen and pelvis CT without intravenous contrast. HISTORY: Right flank pain. TECHNIQUE: Computed tomographic images of the abdomen and pelvis were obtained without contrast. Multiplanar reformatting was performed. *One or more of the following individualized dose reduction techniques were utilized for this examination: 1. Automated exposure control. 2. Adjustment of the mA and/or kV according to patient size. 3. Use of iterative reconstruction technique. COMPARISON: 01/11/2019. FINDINGS: Evaluation of the lower thorax demonstrates lingular and right middle lobe atelectasis or scarring. There is bilateral basilar atelectasis. There is a stable 5 mm pleural-based nodular opacity within the anterior left lung base, benign in appearance. There are small hypodense lesions within the superior right hepatic lobe. The gallbladder is surgically absent. There is biliary ductal dilatation likely due to reservoir effect status post cystectomy. The pancreas is unremarkable. There is a calcification along the pancreatic tail which is likely vascular in etiology. The spleen and adrenal glands are unremarkable. There are left renal parapelvic cysts, better characterized on the prior contrast-enhanced exam. There is no evidence of nephrolithiasis or hydronephrosis. There is stable punctate calcifications along the left posterior urinary bladder wall, likely associated with the vaginal cuff status post hysterectomy. No abnormally thickened or dilated loop of bowel is seen. There are few distal colonic diverticula. There is heavy calcified atherosclerotic plaque within the aorta. There is no aneurysm. There is no suspicious osseous lesion. There are degenerative changes involving the spine. There is suspected bone demineralization. IMPRESSION: 1. Left renal parapelvic cysts, better characterized on the prior contrast-enhanced exam. There is no evidence of nephrolithiasis or obstructive uropathy. 2. Small hypodense lesions within the superior right hepatic lobe, better characterized on the prior contrast-enhanced CT. These may be hemangiomas. Liver sonography can be performed for confirmation if there is clinical concern. 3. Few distal colonic diverticula. Electronically signed by: Monserrat Taylor MD (04/29/2019 5:19 PM) [id number] DICTATED AND SIGNED BY: MONSERRAT TAYLOR MD DATE: 04/29/19 1719 CC: ANDRES MAHMOOD MD; ROSA MARIA ZENG MD ~ (MARIAN GUTIERREZ DO) Course & Med Decision Making Course & Med Decision Making Pertinent Labs and Imaging studies reviewed. (See chart for details) [] 6:00 PM: Pt condition remains stable. Care was turned over to Dr Gutierrez at shift change, pending labs, and final disposition. Report given. (ANDRES MAHMOOD MD) Course & Med Decision Making The patient's CT scan is negative for stone. There are some incidental findings. See official report more details. The patient's labs are unremarkable. She does not have a UTI. I discussed her results with her and the patient has had inter mittent symptoms for several months now. I have advised the patient see a urologist. She agrees this is a good plan. I will discharge her with a prescription for Pyridium to see if this helps. She is stable for discharge at this time. (MARIAN GUTIERREZ DO) Dragon Disclaimer Dragon Disclaimer This electronic medical record was generated, in whole or in part, using a voice recognition dictation system. (ANDRES MAHMOOD MD) Departure Departure: Impression: Primary Impression: Dysuria Disposition: HOME, SELF-CARE Condition: STABLE Referrals: ROSA MARIA ZENG MD (PCP) Patient Instructions: Dysuria Scripts Phenazopyridine Hcl (PYRIDIUM) 100 Mg Tablet 100 MG PO TID PRN for URINARY PAIN for 5 Days, #15 TAB Prov: MARIAN GUTIERREZ DO 04/29/19 ANDRES MAHMOOD MD Apr 29, 2019 16:47 MARIAN GUTIERREZ DO Apr 29, 2019 18:49
[2019-04-29] MEDS ORDERED: KETOROLAC 30 MG/ML VIAL. IV ONE (17:00)
--- NOTE | 2019-04-29 17:22 | RAD ---
EXAM: Abdomen and pelvis CT without intravenous contrast. HISTORY: Right flank pain. TECHNIQUE: Computed tomographic images of the abdomen and pelvis were obtained without contrast. Multiplanar reformatting was performed. *One or more of the following individualized dose reduction techniques were utilized for this examination: 1. Automated exposure control. 2. Adjustment of the mA and/or kV according to patient size. 3. Use of iterative reconstruction technique. COMPARISON: 01/11/2019. FINDINGS: Evaluation of the lower thorax demonstrates lingular and right middle lobe atelectasis or scarring. There is bilateral basilar atelectasis. There is a stable 5 mm pleural-based nodular opacity within the anterior left lung base, benign in appearance. There are small hypodense lesions within the superior right hepatic lobe. The gallbladder is surgically absent. There is biliary ductal dilatation likely due to reservoir effect status post cystectomy. The pancreas is unremarkable. There is a calcification along the pancreatic tail which is likely vascular in etiology. The spleen and adrenal glands are unremarkable. There are left renal parapelvic cysts, better characterized on the prior contrast-enhanced exam. There is no evidence of nephrolithiasis or hydronephrosis. There is stable punctate calcifications along the left posterior urinary bladder wall, likely associated with the vaginal cuff status post hysterectomy. No abnormally thickened or dilated loop of bowel is seen. There are few distal colonic diverticula. There is heavy calcified atherosclerotic plaque within the aorta. There is no aneurysm. There is no suspicious osseous lesion. There are degenerative changes involving the spine. There is suspected bone demineralization. IMPRESSION: 1. Left renal parapelvic cysts, better characterized on the prior contrast-enhanced exam. There is no evidence of nephrolithiasis or obstructive uropathy. 2. Small hypodense lesions within the superior right hepatic lobe, better characterized on the prior contrast-enhanced CT. These may be hemangiomas. Liver sonography can be performed for confirmation if there is clinical concern. 3. Few distal colonic diverticula. Electronically signed by: Monserrat Arellano MD (04/29/2019 5:19 PM) [place] [id number]
[2019-04-29 17:49] LABS: BASO % 0 % (0-3); EOS # 0.1 x10^3/uL (0.0-0.7); EOS % 1 % (0-3); HEMATOCRIT 42.5 % (36.0-47.0); HEMOGLOBIN 14.6 g/dL (12.0-15.5); LYMPH # 3.1 x10^3/uL (1.0-4.8); LYMPH % 40 % (24-48); MEAN CORPUSCULAR HEMOGLOBIN 35 pg (25-35); MEAN CORPUSCULAR HGB CONC 34 g/dL (31-37); MEAN CORPUSCULAR VOLUME 103 fL (79-100); MONO # 0.7 x10^3/uL (0.0-1.1); MONO % 10 % (0-9); NEUT # 3.7 x10^3uL (1.8-7.7); NEUT % 48 % (31-73); PLATELET COUNT 230 x10^3/uL (140-400); RED BLOOD COUNT 4.12 x10^6/uL (3.50-5.40); RED CELL DISTRIBUTION WIDTH 14.5 % (11.5-14.5); WHITE BLOOD COUNT 7.6 x10^3/uL (4.0-11.0)
[2019-04-29 18:06] LABS: ALBUMIN 4.2 g/dL (3.4-5.0); CALCIUM 8.8 mg/dL (8.5-10.1); CREATININE 0.9 mg/dL (0.6-1.0); GFR 64.8; POTASSIUM 3.6 mmol/L (3.5-5.1); TOTAL BILIRUBIN 0.4 mg/dL (0.2-1.0); TOTAL PROTEIN 8.4 g/dL (6.4-8.2)
[2019-04-29 18:29] LABS: BACTERIA,URINE 0 /HPF (0-FEW); BILIRUBIN,URINE NEG (NEG); CLARITY,URINE CLEAR; COLOR,URINE YELLOW; GLUCOSE,URINE NEG (NEG); NITRITE,URINE NEG (NEG); RBC,URINE OCC /HPF (0-2); SQUAMOUS EPITHELIAL CELL,UR FEW /LPF; UROBILINOGEN,URINE 0.2 mg/dL (0.2 mg/dL)
[2019-04-29 18:34] VITALS: BP 110/64
[2019-04-29] MEDS ORDERED: PHEN100T82 PO (18:49)
== END 2019-04-29 19:04 | disposition home or self-care (01) ==
LOC: ER 16:26
DX: R30.0 Dysuria (principal); R35.0 Frequency of micturition; R10.84 Generalized abdominal pain; I10 Essential (primary) hypertension; E03.9 Hypothyroidism, unspecified; F17.210 Nicotine dependence, cigarettes, uncomplicated; Z90.49 Acquired absence of other specified parts of digestive tract; Z90.710 Acquired absence of both cervix and uterus; Z88.2 Allergy status to sulfonamides; Z88.5 Allergy status to narcotic agent
CPT/HCPCS: 36415; 74176; 80053; 81001; 83690; 85025; 96374; 99285; J1885; J7030

== ENCOUNTER 2019-06-20 14:30 | Emergency (ER) | payer OTHER ==
[~2019-06-20] VITALS: Ht 162.6 cm; Wt 51.7 kg
[~2019-06-20 14:30] MED LIST changes: +PHEN100T82 PO
[2019-06-20 15:40] VITALS: BP 156/91
--- NOTE | 2019-06-20 15:47 | PHYS DOC ---
Past History Past Medical History: Depression, Hypertension, Hypothyroid, Hepatitis Past Surgical History: Cholecystectomy, Hysterectomy Smoking: Cigarettes Alcohol Use: None Drug Use: Marijuana Adult General Chief Complaint Chief Complaint: PSYCH EVALUATION HPI HPI Patient is a 54 year-old female presents with feeling of persecution. Paranoia. Reports that people or pounding on the door of her apartment. She denies any suicidal or homicidal ideation. She reports not wanting to go home due to this. [facility]. Patient denies using any alcohol or recreational drugs today. Last used of marijuana was yesterday. She has been on BuSpar from Dr. Zeng for the past 8 months. These current symptoms only started within the past couple of weeks.[] Review of Systems Review of Systems Constitutional: Denies fever or chills [] Eyes: Denies change in visual acuity, redness, or eye pain [] HENT: Denies nasal congestion or sore throat [] Respiratory: Denies cough or shortness of breath [] Cardiovascular: No chest pain or palpitations[] GI: Denies abdominal pain, nausea, vomiting, bloody stools or diarrhea [] : Denies dysuria or hematuria [] Musculoskeletal: Denies back pain or joint pain [] Integument: Denies rash or skin lesions [] Neurologic: Denies headache, focal weakness or sensory changes [] Endocrine: Denies polyuria or polydipsia [] All other systems were reviewed and found to be within normal limits, except as documented in this note. Allergies Allergies Allergies Coded Allergies Type Severity Reaction Last Updated Verified Sulfa (Sulfonamide Antibiotics) Allergy Mild 01/15/19 Yes morphine Allergy Mild 01/15/19 Yes Physical Exam Physical Exam Constitutional: Well developed, well nourished, no acute distress, non-toxic a ppearance. [] HENT: Normocephalic, atraumatic, bilateral external ears normal, oropharynx moist, no oral exudates, nose normal. [] Eyes: PERRLA, EOMI, conjunctiva normal, no discharge. [] Neck: Normal range of motion, no tenderness, supple, no stridor. [] Cardiovascular:Heart rate regular rhythm, no murmur [] Lungs & Thorax: Bilateral breath sounds clear to auscultation [] Abdomen: Bowel sounds normal, soft, no tenderness, no masses, no pulsatile masses. [] Skin: Warm, dry, no erythema, no rash. [] Back: No tenderness, no CVA tenderness. [] Extremities: No tenderness, no cyanosis, no clubbing, ROM intact, no edema. [] Neurologic: Alert and oriented X 3, normal motor function, normal sensory function, no focal deficits noted. [] Psychologic: Affect flat, poor eye contact, no suicidal or homicidal ideation, mood depressed. [] Current Patient Data Lab Results Laboratory Tests Test 06/20/19 14:37 Glucose (Fingerstick) 93 mg/dL (70-99) EKG EKG EKG shows a sinus rhythm at 57 bpm, normal axis, QTC 410 ms, no ST elevations. Interpreted by me at 1609.[] Radiology/Procedures Radiology/Procedures [] Course & Med Decision Making Course & Med Decision Making Pertinent Labs and Imaging studies reviewed. (See chart for details) ED course: Patient arrived, was placed in bed, and tolerated exam well. At no time during her emergency department stay did she voice suicidal or homicidal ideation. While awaiting evaluation by the [facility], patient wanted to go outside and smoke. She also became concerned about how she would get home due to how long everything was taking. Patient elected to sign out AGAINST MEDICAL ADVICE. She was able to state the risks to include or permanent disability in her own words. She appears able to make an informed decision. Medical decision making: Patient with paranoia. There is no suicidal or homicidal ideation. No evidence of significant electrolyte abnormality.[] Dragon Disclaimer Dragon Disclaimer This electronic medical record was generated, in whole or in part, using a voice recognition dictation system. Departure Departure: Impression: Primary Impression: Paranoia Disposition: 07 AGAINST MEDICAL ADVICE Condition: IMPROVED Referrals: ROSA MARIA ZENG MD (PCP) PETR DÍAZ DO Jun 20, 2019 15:47
[2019-06-20 16:08] LABS: BARBITURATES NEG (NEG); BENZODIAZEPINES NEG (NEG); CANNABINOIDS NEG (NEG); COCAINE NEG (NEG); METHADONE NEG (NEG); OPIATES NEG (NEG); PHENCYCLIDINE NEG (NEG)
--- NOTE | 2019-06-20 16:10 | EKG ---
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
[2019-06-20 16:20] LABS: AMPHETAMINE/METHAMPHETAMINE NEG (NEG)
[2019-06-20 16:26] LABS: BASO % 0 % (0-3); EOS # 0.1 x10^3/uL (0.0-0.7); EOS % 2 % (0-3); HEMATOCRIT 44.6 % (36.0-47.0); HEMOGLOBIN 15.1 g/dL (12.0-15.5); LYMPH # 2.9 x10^3/uL (1.0-4.8); LYMPH % 31 % (24-48); MEAN CORPUSCULAR HEMOGLOBIN 35 pg (25-35); MEAN CORPUSCULAR HGB CONC 34 g/dL (31-37); MEAN CORPUSCULAR VOLUME 102 fL (79-100); MONO # 0.7 x10^3/uL (0.0-1.1); MONO % 7 % (0-9); NEUT # 5.5 x10^3uL (1.8-7.7); NEUT % 60 % (31-73); PLATELET COUNT 236 x10^3/uL (140-400); RED BLOOD COUNT 4.37 x10^6/uL (3.50-5.40); RED CELL DISTRIBUTION WIDTH 13.2 % (11.5-14.5); WHITE BLOOD COUNT 9.3 x10^3/uL (4.0-11.0)
[2019-06-20 16:31] LABS: ALBUMIN 3.6 g/dL (3.4-5.0); ALBUMIN/GLOBULIN RATIO 0.9 (1.0-1.7); CALCIUM 8.9 mg/dL (8.5-10.1); CREATININE 0.7 mg/dL (0.6-1.0); GFR 86.6; POTASSIUM 3.7 mmol/L (3.5-5.1); TOTAL BILIRUBIN 0.2 mg/dL (0.2-1.0); TOTAL PROTEIN 7.5 g/dL (6.4-8.2)
[2019-06-20 16:32] LABS: ACETAMIN < 2.0 mcg/mL (10-30); ETHANOL < 10 mg/dL (0-10); SALIC 5.3 mg/dL (2.8-20.0)
[2019-06-20 16:50] LABS: BACTERIA,URINE FEW /HPF (0-FEW); BILIRUBIN,URINE NEG (NEG); CLARITY,URINE CLEAR; COLOR,URINE STRAW; GLUCOSE,URINE NEG (NEG); NITRITE,URINE NEG (NEG); RBC,URINE 0 /HPF (0-2); SQUAMOUS EPITHELIAL CELL,UR OCC /LPF; UROBILINOGEN,URINE 0.2 mg/dL (0.2 mg/dL); WBC,URINE OCC /HPF (0-4)
--- NOTE | 2019-06-20 16:51 | NUR ---
[facility] CALL[facility] TO [facility]CRE[facility]. MENTAL HEALTH SCREENERMEHDI SAID HE'D BE IN ROUTE SOON POSSIBLE.
== END 2019-06-20 17:42 | disposition left against medical advice (07) ==
LOC: ER 14:30
DX: F22 Delusional disorders (principal); F32.9 Major depressive disorder, single episode, unspecified; I10 Essential (primary) hypertension; E03.9 Hypothyroidism, unspecified; F17.210 Nicotine dependence, cigarettes, uncomplicated; Z88.2 Allergy status to sulfonamides; Z88.5 Allergy status to narcotic agent
CPT/HCPCS: 36415; 80053; 80307; 80329; 81001; 82947; 85025; 93005; 99285; G0480; 82003

== ENCOUNTER 2019-07-17 14:08 | Emergency (ER) | payer OTHER ==
[~2019-07-17] VITALS: Ht 162.6 cm; Wt 52.2 kg
--- NOTE | 2019-07-17 14:21 | PHYS DOC ---
Past History Past Medical History: Depression, Hypertension, Hypothyroid, Hepatitis, Schizophrenia Past Surgical History: Cholecystectomy, Hysterectomy Smoking: Cigarettes Alcohol Use: None Drug Use: Marijuana Adult General Chief Complaint Chief Complaint: BACK PAIN OR INJURY HPI HPI Patient is a 54-year-old female who presents to the emergency department for evaluation. She states that she has had chronic ongoing right low back/hip pain, for years, but states she fell about a week and a half ago and has had worsening pain since that time. She states ambulation worsens her pain. Movement and laying on the right side also worsen her pain. She denies any numbness, weakness, incontinence, urinary retention, or saddle anesthesia. There are no alleviating or exacerbating factors to her symptoms except as noted above. Review of Systems Review of Systems Constitutional: Denies fever or chills [] Eyes: Denies change in visual acuity, redness, or eye pain [] HENT: Denies nasal congestion or sore throat [] Respiratory: Denies cough or shortness of breath [] Cardiovascular: The patient denies any shortness of breath, chest pain, palpitations, or orthopnea [] GI: Denies abdominal pain, nausea, vomiting, bloody stools or diarrhea [] : Denies dysuria or hematuria [] Musculoskeletal: Denies back pain or joint pain [] Integument: Denies rash or skin lesions [] Neurologic: Denies headache, focal weakness or sensory changes [] Allergies Allergies Allergies Coded Allergies Type Severity Reaction Last Updated Verified Sulfa (Sulfonamide Antibiotics) Allergy Mild 07/17/19 Yes morphine Allergy Mild 07/17/19 Yes Physical Exam Physical Exam PHYSICAL EXAM: CONSTITUTIONAL: Well developed, well nourished HEAD: normocephalic, atraumatic EENT: PERRL, EOMI. Conjunctivae normal color, sclerae non-icteric; moist mucous membranes. NECK: Supple, non-tender; no meningismus. LUNGS: Lungs CTA, breathing even and unlabored. Normal air movement. HEART: Regular rate and rhythm, no murmur CHEST: No deformity; non-tender ABDOMEN: The abdomen is soft, and non-tender, no masses or bruits. EXTREM: There is tenderness to palpation to the right hip area, which reproduces the patient's pain, although range of motion is present. Normal ROM; no deformity, no calf tenderness. Normal pulses palpable in all extremities. There is no pedal edema. SKIN: No rash; no diaphoresis NEURO: Alert; normal speech and cognition; CN's grossly intact; strength grossly intact without focal deficit. Patellar reflexes are 2+ bilaterally. Distal sensation is normal. There is no foot drop. There is no saddle anesthesia. BACK: No CVA TTP. There is tenderness to palpation diffusely of the lumbar spine, both lower midline, and right paraspinal, which reproduces the patient's pain. Radiology/Procedures Radiology/Procedures PROCEDURE: HIP RIGHT 2V WITH PELVIS LUMBAR SPINE 2-3V, HIP RIGHT 2V WITH PELVIS History: Fall. Pain. Technique: 2 views of the pelvis and 3 views of the lumbar spine Comparison: None. Findings: Lumbar spine: Normal alignment. Normal vertebral body height. No fracture. Moderate multilevel degenerative disc and facet arthropathy most prominent L5-S1. L2 superior endplate chronic deformity, unchanged. Surgical clips right upper quadrant. Hips and pelvis: Normal alignment of the hips. No fracture. Soft tissues unremarkable. Impression: 1. No acute osseous abnormality. 2. Moderate multilevel lumbar spondylosis.[] Course & Med Decision Making Course & Med Decision Making Pertinent Imaging studies reviewed. (See chart for details) [] Dragon Disclaimer Dragon Disclaimer This electronic medical record was generated, in whole or in part, using a voice recognition dictation system. Departure Departure: Impression: Primary Impression: Low back pain Disposition: 01 HOME, SELF-CARE Condition: STABLE Referrals: ROSA MARIA ZENG MD (PCP) Patient Instructions: Back Pain, Adult, Sciatica Additional Instructions: Applying a heating pad to the affected area may help improve your symptoms. The prescribed medications may cause drowsiness-use caution while taking. Scripts Cyclobenzaprine Hcl (CYCLOBENZAPRINE HCL) 10 Mg Tablet 1 TAB PO TID PRN for PAIN, #20 TAB Prov: ANDRES MAHMOOD MD 07/17/19 Diclofenac Sodium (DICLOFENAC SODIUM) 50 Mg Tablet. 1 TAB PO BID for pain, #20 TAB 1 Refill Prov: ANDRES MAHMOOD MD 07/17/19 ANDRES MAHMOOD MD Jul 17, 2019 14:21
[2019-07-17] MEDS ORDERED: IBUPROFEN 600 MG TABLET. PO ONE (14:45)
--- NOTE | 2019-07-17 15:52 | RAD ---
LUMBAR SPINE 2-3V, HIP RIGHT 2V WITH PELVIS History: Fall. Pain. Technique: 2 views of the pelvis and 3 views of the lumbar spine Comparison: None. Findings: Lumbar spine: Normal alignment. Normal vertebral body height. No fracture. Moderate multilevel degenerative disc and facet arthropathy most prominent L5-S1. L2 superior endplate chronic deformity, unchanged. Surgical clips right upper quadrant. Hips and pelvis: Normal alignment of the hips. No fracture. Soft tissues unremarkable. Impression: 1. No acute osseous abnormality. 2. Moderate multilevel lumbar spondylosis. Electronically signed by: Ole Martin DO (07/17/2019 3:49 PM) [id number]
[2019-07-17] MEDS ORDERED: DICL50TA4 PO (16:11)
[2019-07-17] MEDS ORDERED: CYCL-331 PO (16:11)
[2019-07-17 16:28] VITALS: BP 120/76
== END 2019-07-17 16:28 | disposition home or self-care (01) ==
LOC: ER 14:08
DX: M54.5 Low back pain (principal); M25.551 Pain in right hip; G89.29 Other chronic pain; I10 Essential (primary) hypertension; E03.9 Hypothyroidism, unspecified; F20.9 Schizophrenia, unspecified; F17.210 Nicotine dependence, cigarettes, uncomplicated; Z88.2 Allergy status to sulfonamides; Z88.5 Allergy status to narcotic agent
CPT/HCPCS: 72100; 73502; 99284

== ENCOUNTER 2019-08-04 19:45 | Emergency (ER) | payer OTHER ==
[~2019-08-04] VITALS: Ht 162.6 cm; Wt 52.2 kg
[~2019-08-04 19:45] MED LIST changes: +CYCL-331 PO; +DICL50TA4 PO
[2019-08-04] MEDS ORDERED: KETOROLAC 30 MG/ML VIAL. IVP ONE (20:30)
[2019-08-04 20:31] LABS: BASO # 0.1 x10^3/uL (0.0-0.2); BASO % 1 % (0-3); EOS # 0.3 x10^3/uL (0.0-0.7); EOS % 4 % (0-3); LYMPH # 3.8 x10^3/uL (1.0-4.8); LYMPH % 43 % (24-48); MEAN CORPUSCULAR HEMOGLOBIN 34 pg (25-35); MEAN CORPUSCULAR HGB CONC 35 g/dL (31-37); MEAN CORPUSCULAR VOLUME 98 fL (79-100); MONO # 0.8 x10^3/uL (0.0-1.1); MONO % 9 % (0-9); NEUT % 44 % (31-73); PLATELET COUNT 253 x10^3/uL (140-400); RED BLOOD COUNT 4.39 x10^6/uL (3.50-5.40); RED CELL DISTRIBUTION WIDTH 13.1 % (11.5-14.5)
[2019-08-04 20:39] LABS: BARBITURATES NEG (NEG); BENZODIAZEPINES NEG (NEG); CANNABINOIDS POS (NEG); COCAINE NEG (NEG); METHADONE NEG (NEG); OPIATES NEG (NEG); PHENCYCLIDINE NEG (NEG)
[2019-08-04 20:41] LABS: AMPHETAMINE/METHAMPHETAMINE NEG (NEG)
[2019-08-04 20:49] LABS: CALCIUM 8.8 mg/dL (8.5-10.1); CREATININE 0.8 mg/dL (0.6-1.0); GFR 74.2; POTASSIUM 3.8 mmol/L (3.5-5.1)
[2019-08-04 21:01] LABS: ALBUMIN 3.4 g/dL (3.4-5.0); ALBUMIN/GLOBULIN RATIO 0.8 (1.0-1.7); TOTAL BILIRUBIN 0.3 mg/dL (0.2-1.0); TOTAL PROTEIN 7.5 g/dL (6.4-8.2)
[2019-08-04 21:05] LABS: BILIRUBIN,URINE NEG (NEG); CLARITY,URINE CLEAR; COLOR,URINE YELLOW; GLUCOSE,URINE NEG (NEG); UROBILINOGEN,URINE 0.2 mg/dL (0.2 mg/dL)
[2019-08-04 21:06] LABS: BACTERIA,URINE 0 /HPF (0-FEW); NITRITE,URINE NEG (NEG); RBC,URINE OCC /HPF (0-2); SQUAMOUS EPITHELIAL CELL,UR MOD /LPF
--- NOTE | 2019-08-04 21:27 | RAD ---
Examination: CHEST 2V W/ APICAL LORDOTIC History: Chest pain for 4 days Comparison/Correlation: 11/01/2017 CTA of the chest Findings: Frontal and lateral views of the chest were obtained. Apical lordotic view was also obtained. Total of 3 images were provided. Heart size and pulmonary vasculature are normal. No infiltrate. No pneumothorax. No pleural effusion. Right upper quadrant surgical clips noted. Lung apices are unremarkable. Bony structures are intact. Impression: No suspicious process. Electronically signed by: Omer Webster MD (08/04/2019 9:24 PM) [id number]
[2019-08-04] MEDS ORDERED: IOHEXOL 350 MG/ML 100 ML VIAL. IV ONE (21:30)
[2019-08-04] MEDS ORDERED: CONTRAST GIVEN MC PRN (21:30)
[2019-08-04] MEDS ORDERED: ONDANSETRON PF 4 MG/2 ML VIAL. IVP ONE (23:00)
--- NOTE | 2019-08-04 23:10 | EKG ---
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
--- NOTE | 2019-08-04 23:14 | RAD ---
Examination: CT ANGIO CHEST W ABD PEL W/ History: Chest pain. Upper quadrant pain. Positive d-dimer. Comparison/Correlation: None Findings: Axial images of the chest, abdomen, and pelvis were obtained following IV contrast: The pulmonary arteriography protocol imaging of the chest was performed. Maximum intensity projection images were provided. Standard axial images of the abdomen and pelvis were acquired. Sagittal and coronal reformatted images were provided. Pulmonary arterial vasculature is normal with no thromboembolic disease. Thoracic aorta morphology is overall unremarkable although this exam was not performed for aortic arteriography purposes. Marked coronary arterial calcifications present. Scattered calcification involving the thoracic aorta noted. No pneumothorax. No consolidation or other infiltrate. No pulmonary nodule or mass. No enlarged thoracic lymph nodes. No pleural or pericardial effusion. Cholecystectomy noted. Left renal interpolar cyst is present. At the right hepatic dome, there are 2 lesions which are small for characterization. One of these measures 1 cm diameter while the other measures 0.9 cm diameter. There is peripheral nodular enhancement as expected a small angiomas. Additional indeterminate lesion which is low attenuation is present involving the liver on axial image 24 within the left thyroid lobe but is too small for characterization. Low-attenuation lesion involving the left hepatic lobe measuring 1 cm diameter which is too small for a tear dilatation is present on axial image 35 of the lateral segment. Moderate quantity of stool in the colon is present. Moderate quantity of debris in the stomach. No inflammatory change about the cecum. Urinary bladder is unremarkable. No enlarged abdominal or pelvic lymph nodes. Moderate L5-S1 disc space narrowing is present. Concentric disc bulge at L5-S1 noted. Advanced arthritic calcific involvement of the infrarenal abdominal aorta is noted. Impression: No pulmonary arterial thromboembolic disease. No infiltrate. Atherocalcific involvement of the abdominal aorta is advanced for patient's age. Coronary artery calcification also is evidence for age. Correlate for underlying cardiovascular disease. Liver lesions are present. These are too small for characterization. Right hepatic lobe lesions probably represent hemangiomas. PQRS Compliance Statement: One or more of the following individualized dose reduction techniques were utilized for this examination: 1. Automated exposure control 2. Adjustment of the mA and/or kV according to patient size 3. Use of iterative reconstruction technique Electronically signed by: Omer Webster MD (08/04/2019 11:12 PM) [facility]
[2019-08-04] MEDS ORDERED: METO10TA81 PO (23:28)
[2019-08-04] MEDS ORDERED: FAMO-63 PO (23:28)
[2019-08-04 23:39] VITALS: BP 130/86
--- NOTE | 2019-08-05 06:22 | PHYS DOC ---
Past History Past Medical History: Depression, Hypertension, Hypothyroid, Hepatitis, Schizophrenia Past Surgical History: Cholecystectomy, Hysterectomy Smoking: Cigarettes Alcohol Use: None Drug Use: Marijuana Adult General Chief Complaint Chief Complaint: CHEST PAIN HPI HPI Patient is a 54-year-old female with history of CAD, CABG, who presents with migratory upper abdominal pain radiating from left upper quadrant or right upper quadrant. It is described as sharp, cramping and rated moderate to severe Previous cholecystectomy symptoms began several hours prior to ED arrival. Reports nausea, no vomiting. No chest pain, shortness of breath, flank pain. Denies shoulder neck or jaw pain or other cardiac equivalent. No urinary frequency urgency or dysuria. [] Review of Systems Review of Systems ReView of symptoms as per history of present illness. All other review symptoms are negative. All other systems were reviewed and found to be within normal limits, except as documented in this note. Current Medications Current Medications Current Medications Medications (Trade) Dose Ordered Sig/Michelle Start Time Stop Time Status Last Admin Dose Admin Fentanyl Citrate (Fentanyl 2ml Vial) 50 mcg 1X ONCE 08/04/19 23:00 08/04/19 23:15 DC 08/04/19 23:07 50 MCG Info (Do NOT chart on this entry -- for MONITORING) 1 each PRN DAILY PRN 08/04/19 21:30 08/05/19 03:15 DC Iohexol (Omnipaque 350 Mg/ml) 75 ml 1X ONCE 08/04/19 21:30 08/04/19 21:31 DC 08/04/19 21:52 75 ML Ketorolac Tromethamine (Toradol 30mg Vial) 30 mg 1X ONCE 08/04/19 20:30 08/04/19 20:37 DC 08/04/19 20:34 30 MG Ondansetron HCl (Zofran) 4 mg 1X ONCE 08/04/19 23:00 08/04/19 23:15 DC 08/04/19 23:06 4 MG Allergies Allergies Allergies Coded Allergies Type Severity Reaction Last Updated Verified Sulfa (Sulfonamide Antibiotics) Allergy Mild 07/17/19 Yes morphine Allergy Mild 07/17/19 Yes Physical Exam Physical Exam Constitutional: Well developed, well nourished, no acute distress, non-toxic appearance. [] HENT: Normocephalic, atraumatic, bilateral external ears normal, oropharynx moist, no oral exudates, nose normal. [] Eyes: PERRLA, EOMI, conjunctiva normal, no discharge. [] Neck: Normal range of motion, no tenderness, supple, no stridor. [] Cardiovascular:Heart rate regular rhythm, no murmur [] Lungs & Thorax: Bilateral breath sounds clear to auscultation [] Abdomen: Bowel sounds normal, soft, diffuse epigastric pain, minimal tenderness.. [] Skin: Warm, dry, no erythema, no rash. [] Back: No tenderness, no CVA tenderness. [] Extremities: No tenderness, no cyanosis, no clubbing, ROM intact, no edema. [] Neurologic: Alert and oriented X 3, normal motor function, normal sensory function, no focal deficits noted. [] Psychologic: Affect normal, judgement normal, mood normal. [] Current Patient Data Vital Signs Vital Signs Date Time Temp Pulse Resp B/P (MAP) Pulse Ox O2 Delivery O2 Flow Rate FiO2 08/04/19 23:39 66 16 130/86 (101) 93 Room Air 08/04/19 19:45 98.0 Lab Results Laboratory Tests Test 08/04/19 20:05 08/04/19 20:15 Urine Collection Type Unknown Urine Color Yellow Urine Clarity Clear Urine pH 6.5 Urine Specific [place] 1.015 Urine Protein Neg (NEG-TRACE) Urine Glucose (UA) Neg mg/dL (NEG) Urine Ketones (Stick) Neg mg/dL (NEG) Urine Blood Neg (NEG) Urine Nitrite Neg (NEG) Urine Bilirubin Neg (NEG) Urine Urobilinogen Dipstick 0.2 mg/dL (0.2 mg/dL) Urine Leukocyte Esterase Neg (NEG) Urine RBC Occ /HPF (0-2) Urine WBC 1-4 /HPF (0-4) Urine Squamous Epithelial Cells Mod /LPF Urine Bacteria 0 /HPF (0-FEW) Urine Mucus Slight /LPF Urine Opiates Screen Neg (NEG) Urine Methadone Screen Neg (NEG) Urine Barbiturates Neg (NEG) Urine Phencyclidine Screen Neg (NEG) Urine Amphetamine/Methamphetamine Neg (NEG) Urine Benzodiazepines Screen Neg (NEG) Urine Cocaine Screen Neg (NEG) Urine Cannabinoids Screen Pos (NEG) Urine Ethyl Alcohol Neg (NEG) White Blood Count 9.0 x10^3/uL (4.0-11.0) Red Blood Count 4.39 x10^6/uL (3.50-5.40) Hemoglobin 15.0 g/dL (12.0-15.5) Hematocrit 43.0 % (36.0-47.0) Mean Corpuscular Volume 98 fL (79-100) Mean Corpuscular Hemoglobin 34 pg (25-35) Mean Corpuscular Hemoglobin Concent 35 g/dL (31-37) Red Cell Distribution Width 13.1 % (11.5-14.5) Platelet Count 253 x10^3/uL (140-400) Neutrophils (%) (Auto) 44 % (31-73) Lymphocytes (%) (Auto) 43 % (24-48) Monocytes (%) (Auto) 9 % (0-9) Eosinophils (%) (Auto) 4 % (0-3) H Basophils (%) (Auto) 1 % (0-3) Neutrophils # (Auto) 4.0 x10^3uL (1.8-7.7) Lymphocytes # (Auto) 3.8 x10^3/uL (1.0-4.8) Monocytes # (Auto) 0.8 x10^3/uL (0.0-1.1) Eosinophils # (Auto) 0.3 x10^3/uL (0.0-0.7) Basophils # (Auto) 0.1 x10^3/uL (0.0-0.2) D-Dimer (Brandi) 0.72 mg/L (0.00-0.50) H Sodium Level 142 mmol/L (136-145) Potassium Level 3.8 mmol/L (3.5-5.1) Chloride Level 105 mmol/L (98-107) Carbon Dioxide Level 29 mmol/L (21-32) Anion Gap 8 (6-14) Blood Urea Nitrogen 10 mg/dL (7-20) Creatinine 0.8 mg/dL (0.6-1.0) Estimated GFR (Cockcroft-Gault) 74.2 BUN/Creatinine Ratio 13 (6-20) Glucose Level 101 mg/dL (70-99) H Calcium Level 8.8 mg/dL (8.5-10.1) Total Bilirubin 0.3 mg/dL (0.2-1.0) Aspartate Amino Transferase (AST) 29 U/L (15-37) Alanine Aminotransferase (ALT) 57 U/L (14-59) Alkaline Phosphatase 80 U/L (46-116) Troponin I Quantitative < 0.017 ng/mL (0-0.055) VC-Yox-D-Type Natriuretic Peptide 64 pg/mL (0-124) Total Protein 7.5 g/dL (6.4-8.2) Albumin 3.4 g/dL (3.4-5.0) Albumin/Globulin Ratio 0.8 (1.0-1.7) L EKG EKG [EKG: Reviewed] Radiology/Procedures Radiology/Procedures [CTA chest/CT abdomen pelvis: no acute findings noted Per radiology report.] Course & Med Decision Making Course & Med Decision Making Pertinent Labs and Imaging studies reviewed. (See chart for details) [upperr abdominal pain suspected to GI distress. Symptoms improved with treatment. Recommend supportive care, dietary discretion and PCP follow-up. Return precautions reviewed verbalizes understanding and agreement discharge instructions prior to departure.] Dragon Disclaimer Dragon Disclaimer This electronic medical record was generated, in whole or in part, using a voice recognition dictation system. Departure Departure: Impression: Primary Impression: Abdominal pain Additional Impression: Chest pain Disposition: HOME, SELF-CARE Condition: STABLE Patient Instructions: Chest Pain (Nonspecific), [id number], Abdominal Pain (Nonspecific) Additional Instructions: Please take newly prescribed medications as directed. Drink clear liquids only for the next 12-18 hours then gradually increase to bland diet as tolerated. Re turn to the ED if new or worsening symptoms. Scripts Metoclopramide Hcl (REGLAN) 10 Mg Tablet 1 TAB PO QID for 30 Days, #40 TAB 0 Refills before food and bedtime Prov: MARIAN REDDING DO 08/04/19 Famotidine (PEPCID) 20 Mg Tablet 1 TAB PO BID, #60 TAB 0 Refills Prov: MARIAN REDDING DO 08/04/19 Problem Qualifiers MARIAN REDDING DO Aug 05, 2019 06:22
== END 2019-08-04 23:42 | disposition home or self-care (01) ==
LOC: ER 19:45
DX: R10.10 Upper abdominal pain, unspecified (principal); R10.13 Epigastric pain; R07.9 Chest pain, unspecified; I25.810 Atherosclerosis of coronary artery bypass graft(s) without angina pectoris; F32.9 Major depressive disorder, single episode, unspecified; I10 Essential (primary) hypertension; E03.9 Hypothyroidism, unspecified; F20.9 Schizophrenia, unspecified; F17.210 Nicotine dependence, cigarettes, uncomplicated; Z88.2 Allergy status to sulfonamides; Z88.5 Allergy status to narcotic agent; Z90.49 Acquired absence of other specified parts of digestive tract; Z90.710 Acquired absence of both cervix and uterus
CPT/HCPCS: 36415; 71047; 71275; 74177; 80053; 80307; 81001; 83880; 84484; 85025; 85379; 93005; 96374; 96375; 99285; J1885; J2405; J3010; Q9967

== ENCOUNTER → 2019-08-20 | Outpatient (CLI) | payer OTHER, MEDICAID ==
[2019-08-04 23:39] VITALS: BP 130/86
[~2019-08-20] MED LIST changes: +FAMO-63 PO; +METO10TA81 PO
[2019-08-21 00:06] LABS: HEMOGLOBIN A1C 5.5 % (4.8-5.6)
== END | disposition home or self-care (01) ==
LOC: LAB 12:48
DX: G45.9 Transient cerebral ischemic attack, unspecified (principal); I73.9 Peripheral vascular disease, unspecified; R07.89 Other chest pain; Z79.899 Other long term (current) drug therapy
CPT/HCPCS: 36415; 80061; 83036

== ENCOUNTER 2019-11-10 11:31 | Emergency (ER) | payer OTHER, MEDICAID ==
[~2019-11-10] VITALS: Ht 162.6 cm; Wt 52.4 kg
[2019-11-10] MEDS ORDERED: IV NORMAL SALINE 1,000ML 1,000 ML IV ONE (11:45)
[2019-11-10] MEDS ORDERED: PHENAZOPYRIDINE 200 MG TABLET. PO ONE (12:00)
[2019-11-10] MEDS ORDERED: KETOROLAC 15 MG/ML VIAL. ONE (12:04)
[2019-11-10] MEDS ORDERED: CLON0.5T4 PO (12:11)
[2019-11-10 12:12] LABS: BASO # 0.1 x10^3/uL (0.0-0.2); BASO % 1 % (0-3); EOS # 0.1 x10^3/uL (0.0-0.7); EOS % 1 % (0-3); HEMATOCRIT 41.3 % (36.0-47.0); HEMOGLOBIN 14.2 g/dL (12.0-15.5); LYMPH # 2.3 x10^3/uL (1.0-4.8); LYMPH % 24 % (24-48); MEAN CORPUSCULAR HEMOGLOBIN 34 pg (25-35); MEAN CORPUSCULAR HGB CONC 35 g/dL (31-37); MEAN CORPUSCULAR VOLUME 99 fL (79-100); MONO # 0.7 x10^3/uL (0.0-1.1); MONO % 8 % (0-9); NEUT # 6.4 x10^3uL (1.8-7.7); NEUT % 67 % (31-73); PLATELET COUNT 223 x10^3/uL (140-400); RED BLOOD COUNT 4.19 x10^6/uL (3.50-5.40); RED CELL DISTRIBUTION WIDTH 13.8 % (11.5-14.5); WHITE BLOOD COUNT 9.6 x10^3/uL (4.0-11.0)
--- NOTE | 2019-11-10 12:12 | PHYS DOC ---
Past History Past Medical History: Depression, Hypertension, Hypothyroid, Hepatitis, Schizophrenia Past Surgical History: Appendectomy, Cholecystectomy, Hysterectomy Smoking: Cigarettes Alcohol Use: None Drug Use: Marijuana Adult General Chief Complaint Chief Complaint: ABDOMINAL PAIN HPI HPI 54-year-old female presents with one-week history of dysuria now with upper abdominal and bilateral flank pain. Denies associated nausea or vomiting. Denies diarrhea. Denies fever. Patient does report generalized malaise. Denies rash. Denies trauma. Review of Systems Review of Systems Constitutional: Denies fever or chills Eyes: Denies redness or eye pain HENT: Denies nasal congestion or sore throat Respiratory: Denies cough or shortness of breath Cardiovascular: Denies chest pain or palpitations GI: Reports abdominal pain; denies nausea or vomiting : Reports dysuria and urgency Musculoskeletal: Reports bilateral flank pain; denies extremity pain Integument: Denies rash or skin lesions Neurologic: Denies headache, focal weakness or sensory changes Complete systems were reviewed and found to be within normal limits, except as documented in this note. Current Medications Current Medications Current Medications Medications (Trade) Dose Ordered Sig/Michelle Start Time Stop Time Status Last Admin Dose Admin Ketorolac Tromethamine (Toradol 15mg Vial) 15 mg STK-MED ONCE 11/10/19 12:04 11/10/19 12:04 DC Phenazopyridine HCl (Pyridium) 200 mg 1X ONCE 11/10/19 12:00 11/10/19 12:01 DC 11/10/19 12:07 200 MG Sodium Chloride 1,000 ml @ 1,000 mls/hr 1X ONCE 11/10/19 11:45 11/10/19 12:44 11/10/19 12:00 1,000 MLS/HR Allergies Allergies Allergies Coded Allergies Type Severity Reaction Last Updated Verified Sulfa (Sulfonamide Antibiotics) Allergy Mild 07/17/19 Yes morphine Allergy Mild 07/17/19 Yes Physical Exam Physical Exam Constitutional: Well developed, well nourished, no acute distress, non-toxic appearance HENT: Normocephalic, atraumatic, oropharynx moist Eyes: Conjunctiva normal, no discharge Neck: Normal range of motion, no tenderness, supple Cardiovascular: Heart rate normal, regular rhythm Lungs & Thorax: Bilateral breath sounds clear to auscultation, no wheezing Abdomen: Soft, epigastric tenderness Skin: Warm, dry, no erythema, no rash Back: No tenderness, right CVA tenderness Extremities: No tenderness, ROM intact, no edema Neurologic: Alert and oriented X 3, no focal deficits noted Psychologic: Affect normal, judgment normal Current Patient Data Vital Signs Vital Signs Date Time Temp Pulse Resp B/P (MAP) Pulse Ox O2 Delivery O2 Flow Rate FiO2 11/10/19 11:31 97.9 76 16 121/75 (90) 96 Room Air EKG EKG [] Radiology/Procedures Radiology/Procedures PROCEDURE: CT ABDOMEN PELVIS WO CONTRAST EXAM: Abdomen and pelvis CT without intravenous contrast. HISTORY: Flank and abdominal pain. TECHNIQUE: Computed tomographic images of the abdomen and pelvis were obtained without contrast. Multiplanar reformatting was performed. *One or more of the following individualized dose reduction techniques were utilized for this examination: 1. Automated exposure control. 2. Adjustment of the mA and/or kV according to patient size. 3. Use of iterative reconstruction technique. COMPARISON: 04/29/2019. FINDINGS: Evaluation of the lower thorax demonstrates posterior dependent and basilar atelectasis. There is also atelectasis or scarring within the right middle lobe and lingula. There is no infiltrate or pleural effusion. There are hypodense lesions within the lateral right hepatic lobe measuring 1.4 cm and 1.0 cm. The gallbladder is surgically absent. The pancreas, spleen and adrenal glands are unremarkable. No abnormally thickened or dilated loop of bowel is seen. There are few sigmoid diverticula. The urinary bladder is unremarkable. The uterus is surgically absent. No renal stone is seen. There are left renal parapelvic cysts. The largest of these measures 2.9 cm. There is a small right renal cyst. There is aortobiiliac atherosclerosis with calcified plaque. There is no lymphadenopathy. There is no suspicious osseous lesion. There are degenerative changes involving the lumbar spine, primarily at L3-L4 and L5-S1. There is no suspicious osseous lesion. IMPRESSION: 1. No evidence of nephroureterolithiasis or hydronephrosis. 2. Left greater than right renal cysts. 3. Stable hypodense lesions within the right hepatic lobe, better characterized on the prior contrast-enhanced exam. The imaging appearance on the prior study favors hemangiomas. 4. Few colonic diverticula. Electronically signed by: Monserrat Arellano MD (11/10/2019 12:58 PM) [facility] Course & Med Decision Making Course & Med Decision Making Pertinent Labs and Imaging studies reviewed. (See chart for details) Patient presents with report of 1 week history of dysuria now with abdominal and flank pain. Denies trauma. Afebrile. Labs obtained and posted to chart. UA without significant signs of infection. CT abdomen/pelvis without acute process. Symptomatic treatment provided. IV fluid hydration given. Given dysuria patient given empiric antibiotic therapy. Patient did reports some vaginal discharge after sexual activity with new partner. Patient offered pelvic exam and STD testing. Patient declined and will follow closely with PCP. Patient stable for discharge with outpatient follow-up with PCP. Discussed findings and plan with patient, who acknowledges understanding and agreement. Dragon Disclaimer Dragon Disclaimer This electronic medical record was generated, in whole or in part, using a voice recognition dictation system. Departure Departure: Impression: Primary Impression: Flank pain Additional Impression: Dysuria Disposition: HOME, SELF-CARE Condition: STABLE Referrals: ROSA MARIA ZENG MD (PCP) Patient Instructions: Dysuria-Brief, Flank Pain, [id number] Scripts Cephalexin (KEFLEX) 500 Mg Capsule 1 CAP PO TID for Dysuria for 7 Days, #21 CAP 0 Refills Prov: JUSTEN VALENTINO DO 11/10/19 Problem Qualifiers JUSTEN VALENTINO DO Nov 10, 2019 12:12
[2019-11-10] MEDS ORDERED: KETOROLAC 15 MG/ML VIAL. IVP ONE (12:15)
[2019-11-10 12:19] LABS: CALCIUM 8.8 mg/dL (8.5-10.1); CREATININE 0.8 mg/dL (0.6-1.0); GFR 74.2; POTASSIUM 3.8 mmol/L (3.5-5.1)
[2019-11-10 12:25] LABS: ALBUMIN 3.6 g/dL (3.4-5.0); MAGNESIUM 1.9 mg/dL (1.8-2.4); TOTAL BILIRUBIN 0.2 mg/dL (0.2-1.0); TOTAL PROTEIN 7.2 g/dL (6.4-8.2)
[2019-11-10 12:30] LABS: BACTERIA,URINE 0 /HPF (0-FEW); BILIRUBIN,URINE NEG (NEG); CLARITY,URINE CLEAR; COLOR,URINE YELLOW; GLUCOSE,URINE NEG (NEG); NITRITE,URINE NEG (NEG); SQUAMOUS EPITHELIAL CELL,UR FEW /LPF; UROBILINOGEN,URINE 0.2 mg/dL (0.2 mg/dL)
--- NOTE | 2019-11-10 13:01 | RAD ---
EXAM: Abdomen and pelvis CT without intravenous contrast. HISTORY: Flank and abdominal pain. TECHNIQUE: Computed tomographic images of the abdomen and pelvis were obtained without contrast. Multiplanar reformatting was performed. *One or more of the following individualized dose reduction techniques were utilized for this examination: 1. Automated exposure control. 2. Adjustment of the mA and/or kV according to patient size. 3. Use of iterative reconstruction technique. COMPARISON: 04/29/2019. FINDINGS: Evaluation of the lower thorax demonstrates posterior dependent and basilar atelectasis. There is also atelectasis or scarring within the right middle lobe and lingula. There is no infiltrate or pleural effusion. There are hypodense lesions within the lateral right hepatic lobe measuring 1.4 cm and 1.0 cm. The gallbladder is surgically absent. The pancreas, spleen and adrenal glands are unremarkable. No abnormally thickened or dilated loop of bowel is seen. There are few sigmoid diverticula. The urinary bladder is unremarkable. The uterus is surgically absent. No renal stone is seen. There are left renal parapelvic cysts. The largest of these measures 2.9 cm. There is a small right renal cyst. There is aortobiiliac atherosclerosis with calcified plaque. There is no lymphadenopathy. There is no suspicious osseous lesion. There are degenerative changes involving the lumbar spine, primarily at L3-L4 and L5-S1. There is no suspicious osseous lesion. IMPRESSION: 1. No evidence of nephroureterolithiasis or hydronephrosis. 2. Left greater than right renal cysts. 3. Stable hypodense lesions within the right hepatic lobe, better characterized on the prior contrast-enhanced exam. The imaging appearance on the prior study favors hemangiomas. 4. Few colonic diverticula. Electronically signed by: Monserrat Arellano MD (11/10/2019 12:58 PM) [facility]
[2019-11-10 13:15] VITALS: BP 98/65
[2019-11-10] MEDS ORDERED: CEPH-264 PO (13:28)
[2019-11-10] MEDS ORDERED: CEPHALEXIN 250 MG CAPSULE PO ONE (13:30)
== END 2019-11-10 13:40 | disposition home or self-care (01) ==
LOC: ER 11:31
DX: R10.11 Right upper quadrant pain (principal); R10.12 Left upper quadrant pain; R30.0 Dysuria; I10 Essential (primary) hypertension; E03.9 Hypothyroidism, unspecified; F20.9 Schizophrenia, unspecified; F17.210 Nicotine dependence, cigarettes, uncomplicated; Z90.49 Acquired absence of other specified parts of digestive tract; Z90.89 Acquired absence of other organs; Z90.710 Acquired absence of both cervix and uterus; Z88.2 Allergy status to sulfonamides; Z88.5 Allergy status to narcotic agent
CPT/HCPCS: 36415; 74176; 80053; 81001; 83690; 83735; 85025; 87086; 96374; 99285; J1885; J7030

== ENCOUNTER 2020-03-02 20:49 | Emergency (ER) | payer MEDICAID, OTHER ==
[~2020-03-02] VITALS: Ht 162.6 cm; Wt 52.4 kg
[~2020-03-02 20:49] MED LIST changes: +CLON0.5T4 PO
[2020-03-02] MEDS ORDERED: HYDROcodone/APAP 5/325MG 1 TAB TABLET PO ONE (21:15)
--- NOTE | 2020-03-02 22:06 | RAD ---
EXAM: 3 Views Left Shoulder DATE: 03/02/2020 9:10 PM INDICATION: Reason: pain s/p fall / Spl. Instructions: / History: COMPARISON: No Prior FINDINGS: There is no evidence for acute fracture or dislocation. AC joint is congruent. Glenohumeral joint degenerative changes are seen. Humeral head is not high riding. IMPRESSION: 1. No acute fracture or dislocation. 2. Glenohumeral joint degenerative changes are seen. EXAM: 3 views of the left elbow DATE: 03/02/2020 9:10 PM INDICATION: Reason: pain s/p fall / Spl. Instructions: / History: COMPARISON: No Prior FINDINGS: Evaluation limited given nonstandard submitted images. No definite elbow joint effusion. No acute fracture or dislocation. Decreased bone mineral density. No significant soft tissue swelling. IMPRESSION: No acute fracture or dislocation. EXAM: 3 views of the left wrist DATE: 03/02/2020 9:10 PM INDICATION: Reason: pain s/p fall / Spl. Instructions: / History: COMPARISON: No Prior FINDINGS: No acute fracture or dislocation. Joint spaces are preserved without significant degenerative/proliferative change. Mild soft tissue swelling about the left wrist. Chronic deformity fifth metacarpal likely from old/healed fracture. IMPRESSION: No evidence of acute fracture or dislocation. Decreased bone mineral density. Electronically signed by: Sahil Tijerina MD (03/02/2020 10:03 PM) [facility]
[2020-03-02] MEDS ORDERED: HYDR-3165 PO (22:17)
--- NOTE | 2020-03-02 22:17 | PHYS DOC ---
Past History Past Medical History: CHF, Depression, Hypertension, Hypothyroid, Hepatitis, Schizophrenia Past Surgical History: Appendectomy, Cholecystectomy, Hysterectomy Smoking: Cigarettes Alcohol Use: None Drug Use: Marijuana General Adult EDM: Chief Complaint: WRIST PAIN HPI: HPI: Patient is a [age] year old [sex] who presents with [] Review of Systems: Review of Systems: Constitutional: Denies fever or chills Eyes: Denies change in visual acuity HENT: Denies nasal congestion or sore throat Respiratory: Denies cough or shortness of breath Cardiovascular: Denies chest pain or edema GI: Denies abdominal pain, nausea, vomiting, bloody stools or diarrhea : Denies dysuria Musculoskeletal: Denies back pain or joint pain Integument: Denies rash Neurologic: Denies headache, focal weakness or sensory changes Endocrine: Denies polyuria or polydipsia Lymphatic: Denies swollen glands Psychiatric: Denies depression or anxiety Heart Score: Risk Factors: Risk Factors: DM, Current or recent (<one month) smoker, HTN, HLP, family history of CAD, obesity. Risk Scores: Score 0 - 3: 2.5% MACE over next 6 weeks - Discharge Home Score 4 - 6: 20.3% MACE over next 6 weeks - Admit for Clinical Observation Score 7 - 10: 72.7% MACE over next 6 weeks - Early Invasive Strategies Current Medications: Current Meds: Current Medications Medications (Trade) Dose Ordered Sig/Michelle Start Time Stop Time Status Last Admin Dose Admin Acetaminophen/ Hydrocodone Bitart (Lortab 5/325) 1 tab 1X ONCE 03/02/20 21:15 03/02/20 21:16 DC 03/02/20 21:18 1 TAB Allergies: Allergies: Allergies Coded Allergies Type Severity Reaction Last Updated Verified Sulfa (Sulfonamide Antibiotics) Allergy Mild 07/17/19 Yes morphine Allergy Mild 07/17/19 Yes Physical Exam: PE: Constitutional: Well developed, well nourished, no acute distress, non-toxic appearance. [] HENT: Normocephalic, atraumatic, bilateral external ears normal, oropharynx moist, no oral exudates, nose normal. [] Eyes: PERRLA, EOMI, conjunctiva normal, no discharge. [] Neck: Normal range of motion, no tenderness, supple, no stridor. [] Cardiovascular:Heart rate regular rhythm, no murmur [] Lungs & Thorax: Bilateral breath sounds clear to auscultation [] Abdomen: Bowel sounds normal, soft, no tenderness, no masses, no pulsatile masses. [] Skin: Warm, dry, no erythema, no rash. [] Back: No tenderness, no CVA tenderness. [] Extremities: No tenderness, no cyanosis, no clubbing, ROM intact, no edema. [] Neurologic: Alert and oriented X 3, normal motor function, normal sensory function, no focal deficits noted. [] Psychologic: Affect normal, judgement normal, mood normal. [] Current Patient Data: Vital Signs: Vital Signs Date Time Temp Pulse Resp B/P (MAP) Pulse Ox O2 Delivery O2 Flow Rate FiO2 03/02/20 21:18 20 96 Room Air 03/02/20 21:08 97.7 117 194/101 (132) EKG: EKG: [] Radiology/Procedures: Radiology/Procedures: PROCEDURE: WRIST 3V LEFT & SHOULDER 3V LEFT & ELBOW 3V LEFT EXAM: 3 Views Left Shoulder DATE: 03/02/2020 9:10 PM INDICATION: Reason: pain s/p fall / Spl. Instructions: / History: COMPARISON: No Prior FINDINGS: There is no evidence for acute fracture or dislocation. AC joint is congruent. Glenohumeral joint degenerative changes are seen. Humeral head is not high riding. IMPRESSION: 1. No acute fracture or dislocation. 2. Glenohumeral joint degenerative changes are seen. EXAM: 3 views of the left elbow DATE: 03/02/2020 9:10 PM INDICATION: Reason: pain s/p fall / Spl. Instructions: / History: COMPARISON: No Prior FINDINGS: Evaluation limited given nonstandard submitted images. No definite elbow joint effusion. No acute fracture or dislocation. Decreased bone mineral density. No significant soft tissue swelling. IMPRESSION: No acute fracture or dislocation. EXAM: 3 views of the left wrist DATE: 03/02/2020 9:10 PM INDICATION: Reason: pain s/p fall / Spl. Instructions: / History: COMPARISON: No Prior FINDINGS: No acute fracture or dislocation. Joint spaces are preserved without significant degenerative/proliferative change. Mild soft tissue swelling about the left wrist. Chronic deformity fifth metacarpal likely from old/healed fracture. IMPRESSION: No evidence of acute fracture or dislocation. Decreased bone mineral density. Electronically signed by: Sahil Tijerina MD (03/02/2020 10:03 PM) [facility] Course & Med Decision Making: Course & Med Decision Making Pertinent Labs and Imaging studies reviewed. (See chart for details) [] Cindy Disclaimer: Cindy Disclaimer: This electronic medical record was generated, in whole or in part, using a voice recognition dictation system. Departure Departure: Impression: Primary Impression: Left wrist sprain Qualified Codes: S63.502A - Unspecified sprain of left wrist, initial encounter Disposition: HOME/RESIDENCE PRIOR TO ADM Condition: STABLE Referrals: ROSA MARIA ZENG MD (PCP) GENARO TUCKER MD Patient Instructions: Wrist Sprain with [facility] Additional Instructions: Wear splint for comfort. ICE area 20 min on then leave off for next 20 min. Repeat several times daily for next few days. Use over the counter Ibuprofen in addition to prescribed pain medication as needed. Scripts Hydrocodone Bit/Acetaminophen (NORCO 5-325 TABLET) 1 Each Tablet 0.5-1 TAB PO Q6HRS PRN for PAIN, #10 TAB Prov: JUSTEN VALENTINO DO 03/02/20 Justification of Admission: Justification of Admission: Justification of Admission Dx: N/A JUSTEN VALENTINO DO Mar 02, 2020 22:17
[2020-03-02] MEDS ORDERED: KETOROLAC 30 MG/ML VIAL. IM ONE (22:30)
[2020-03-02 22:58] VITALS: BP 177/96
== END 2020-03-02 22:59 | disposition home or self-care (01) ==
LOC: ER 20:49
DX: S63.502A Unspecified sprain of left wrist, initial encounter (principal); I11.0 Hypertensive heart disease with heart failure; I50.9 Heart failure, unspecified; E03.9 Hypothyroidism, unspecified; F20.9 Schizophrenia, unspecified; F17.210 Nicotine dependence, cigarettes, uncomplicated; Z88.2 Allergy status to sulfonamides; Z88.5 Allergy status to narcotic agent; W18.39XA Other fall on same level, initial encounter; Y93.89 Activity, other specified; Y92.89 Other specified places as the place of occurrence of the external cause; Y99.8 Other external cause status
CPT/HCPCS: 73030; 73080; 73110; 96372; 99284; J1885

== ENCOUNTER → 2020-05-13 | Outpatient (CLI) | payer OTHER ==
[~2020-05-13] MED LIST changes: -PANT40TA5 PO; +PANT40TA6 PO
--- NOTE | 2020-05-13 15:50 | RAD ---
FOREARM LEFT DATE: 05/13/2020 12:00 AM INDICATION: Reason: LEFT FOREARM PAIN / Spl. Instructions: / History: COMPARISON: None. FINDINGS: Bones: There is no evidence of acute fracture. No joint dislocation is noted. Miscellaneous: None. IMPRESSION: No evidence of acute fracture. Electronically signed by: Jose Villafana MD (05/13/2020 3:47 PM) [id number]
== END ==
LOC: RAD 13:37
PROVIDERS: ATTEND Physician Assistant Medical
DX: M79.632 Pain in left forearm (principal)
CPT/HCPCS: 73090

== ENCOUNTER 2020-06-07 01:14 | Emergency (ER) | payer OTHER, MEDICAID ==
[~2020-06-07] VITALS: Ht 162.6 cm; Wt 47.9 kg
[2020-06-07 01:10] LABS: CREATININE 0.8 mg/dL (0.6-1.0); GFR 73.9; POTASSIUM 3.8 mmol/L (3.5-5.1)
[~2020-06-07 01:14] MED LIST changes: +AMLO-187 PO; -AMLO10TA8 PO
[2020-06-07 01:21] VITALS: BP 127/63
[2020-06-07 01:23] LABS: ALBUMIN 3.9 g/dL (3.4-5.0); DIRECT BILIRUBIN 0.1 mg/dL (0.0-0.2); MAGNESIUM 2.1 mg/dL (1.8-2.4); TOTAL BILIRUBIN 0.1 mg/dL (0.2-1.0); TOTAL PROTEIN 7.8 g/dL (6.4-8.2)
--- NOTE | 2020-06-07 01:35 | PHYS DOC ---
Past History Past Medical History: Alcoholism, Anxiety, Arthritis, Bipolar, CHF, COPD, Depression, Hypertension, Hypothyroid, Hepatitis, Schizophrenia Past Surgical History: Appendectomy, Cholecystectomy, Hysterectomy Smoking: Cigarettes Alcohol Use: Heavy Drug Use: Marijuana General Adult EDM: Chief Complaint: ALCOHOL INTOXICATION HPI: HPI: ".. I am too fucking drunk.. I usually don't drink this fucking much.. You got to take care... me.. I am... fucking too drunk.. ". "Mother fuck.. I am so fucking drunk... ".. ".. I am been sober... for a fucking while.. until.. this fucking night.. " Patient is a 55 year old female who presents with above hx and police referral for intoxication. Patient was found outside of her apartment building unable to walk. Pt. was yelling and rolling around on ground in front of apt. Patient does admit to excessive alcohol intake tonight. Patient has history of gait issues and had past history of frequent falls. Patient does continue to smoke and has long history of COPD and emphysema. Patient has past medical history of bipolar disorder, CHF, depression, hypertension, hypothyroidism, schizophrenia, alcohol hepatitis, urinary tract infection, frequent falls and gait disorder. Patient follows with Dr. Cuba for periodic episodes of COPD and bronchitis exacerbations. Patient obviously extremely intoxicated. Unable to stand or even coordinate any activities. Patient is depressed over recent of uncle. Review of Systems: Review of Systems: Constitutional: Denies fever or chills Eyes: Denies change in visual acuity HENT: Denies nasal congestion or sore throat Respiratory: Complains of a chronic cough and wheezing Cardiovascular: Denies chest pain or edema GI: Denies abdominal pain, nausea, vomiting, bloody stools or diarrhea : Denies dysuria Musculoskeletal: Denies back pain or joint pain Integument: Denies rash Neurologic: Denies headache, focal weakness or sensory changes . Complains she is too drunk to even stand. Endocrine: Denies polyuria or polydipsia Lymphatic: Denies swollen glands Psychiatric: Complains of depression and anxiety. Complains of alcohol abuse. Family History: Family History: Noncontributory to presentation. Current Medications: Current Meds: See nursing for home medications Allergies: Allergies: Allergies Coded Allergies Type Severity Reaction Last Updated Verified Sulfa (Sulfonamide Antibiotics) Allergy Mild 07/17/19 Yes morphine Allergy Mild 07/17/19 Yes Physical Exam: PE: Constitutional: Appears to be severely intoxicated. Patient disheveled. Has been rolling around in the dirt has leaves stuck to her clothing and hair HENT: Normocephalic, atraumatic, bilateral external ears normal, oropharynx moist, no oral exudates, nose normal. [] Eyes: PERRLA, EOMI, conjunctiva normal, no discharge. [] Neck: Normal range of motion, no tenderness, supple, no stridor. [] Cardiovascular: Tachycardia heart rate regular rhythm, no murmur [] Lungs & Thorax: Bilateral breath sounds scattered wheezes throughout on auscultation [] Abdomen: Bowel sounds normal, soft, no tenderness, no masses, no pulsatile masses. Old surgery scars. Skin: Warm, dry, no erythema, no rash. Poor turgor. Old and new contusions Back: No tenderness, no CVA tenderness. [] Extremities: No tenderness, no cyanosis, no clubbing, ROM intact, no edema. Arthritic changes. Gait instability. Neurologic: Alert , but obviously confused and discoordinated, moves all extremities on request, does have distal, sensory function, Psychologic: Affect anxious, depressed,, judgement obviously impaired. Yelling . Cursing at the top of her lungs. Current Patient Data: Vital Signs: Vital Signs Date Time Temp Pulse Resp B/P (MAP) Pulse Ox O2 Delivery O2 Flow Rate FiO2 06/07/20 01:21 97.7 98 16 127/63 (84) 98 Room Air EKG: EKG: My interpretation of EKG shows a sinus rhythm at 77 bpm. No findings of acute STEMI with contralateral changes. There is some wavering baseline suspect secondary to patient's movements .[] Radiology/Procedures: Radiology/Procedures: [][address] [place] [id number] IMAGING REPORT Signed PATIENT: GABRIELA DURAN EACCOUNT: [id number] : 1965 LOCATION: ER AGE: 55 SEX: F EXAM STATUS: REG ER ORD. PHYSICIAN: BE COLINDRES MD REASON: falling PROCEDURE: PORTABLE CHEST 1V EXAM: CHEST ONE VIEW. HISTORY: Fall. COMPARISON: 08/04/2019. FINDINGS: A frontal view of the chest is obtained. The lungs are expanded to the 12th posterior ribs. The hemidiaphragms are not flattened. There are no confluent infiltrates. There is no pneumothorax or pleural effusion. The heart is not enlarged. Cholecystectomy clips are noted. IMPRESSION: 1. Hyperinflation. No confluent infiltrates. Electronically signed by: Cheryle Rosas MD (06/07/2020 2:04 AM) [facility] DICTATED AND SIGNED BY: KVNG ROSAS MD DATE: 06/07/20 0204 CC: BE COLINDRES MD; ORSA MARIA CUBA MD ~ Heart Score: HEART Score for Chest Pain: HEART Score for Chest Pain Response (Comments) Value History Slighlty/Non-Suspicious 0 ECG Normal 0 Age >45 - < 65 1 Risk Factors 1 or 2 Risk Factors 1 Troponin < Normal Limit 0 Total 2 Risk Factors: Risk Factors: DM, Current or recent (<one month) smoker, HTN, HLP, family h istory of CAD, obesity. Risk Scores: Score 0 - 3: 2.5% MACE over next 6 weeks - Discharge Home Score 4 - 6: 20.3% MACE over next 6 weeks - Admit for Clinical Observation Score 7 - 10: 72.7% MACE over next 6 weeks - Early Invasive Strategies Course & Med Decision Making: Course & Med Decision Making Pertinent Labs and Imaging studies reviewed. (See chart for details) Patient required one-on-one supervision for sustained period of time until she became less agitated and fell asleep. Begged patient to avoid further alcohol intake. To follow-up with drug abuse and alcohol counseling. Follow-up primary care. Encourage patient reduce tobacco use. Patient take Keflex 500 mg 3 times a day. Follow-up urine cultures. Follow-up primary care. Return if any concerns. Pt. at discharge, pt ambulatory with out problems. Patient encouraged to take steps to forward chronic alcohol use. Impression: 1. Alcohol abuse 155 2. Tobacco abuse 3. Mild dehydration 4. Urinary tract infection 5 Macrocytic indices MCV 101 with elevated segs 88 6. Elevated AST and ALT , 82/142 [] Cindy Disclaimer: Dragalexis Disclaimer: This electronic medical record was generated, in whole or in part, using a voice recognition dictation system. Departure Departure: Disposition: 01 DC HOME SELF CARE/HOMELESS Condition: STABLE Referrals: ROSA MARIA CUBA MD (PCP) Scripts Cephalexin (KEFLEX) 500 Mg Capsule 500 MG PO TID for UTI for 7 Days, BOTTLE Prov: BE COLINDRES MD 06/07/20 Dragon Disclaimer This chart was dictated in whole or in part using Voice Recognition software in a busy, high-work load, and often noisy Emergency Department environment. It may contain unintended and wholly unrecognized errors or omissions. Dragon Disclaimer This chart was dictated in whole or in part using Voice Recognition software in a busy, high-work load, and often noisy Emergency Department environment. It may contain unintended and wholly unrecognized errors or omissions. BE COLINDRES MD Jun 07, 2020 01:35
[2020-06-07 01:41] LABS: HEMATOCRIT 43.2 % (36.0-47.0); HEMOGLOBIN 14.7 g/dL (12.0-15.5); MEAN CORPUSCULAR HEMOGLOBIN 34 pg (25-35); MEAN CORPUSCULAR HGB CONC 34 g/dL (31-37); MEAN CORPUSCULAR VOLUME 101 fL (79-100); PLATELET COUNT 219 x10^3/uL (140-400); RED BLOOD COUNT 4.29 x10^6/uL (3.50-5.40); RED CELL DISTRIBUTION WIDTH 13.7 % (11.5-14.5)
[2020-06-07] MEDS ORDERED: MVI, ADULT NO.4 WITH VIT K 10 ML, THIAMINE INJ 100 MG in IV RINGERS SOLUTION,LACTATED 1... IV ONE (01:45)
[2020-06-07] MEDS ORDERED: FOLIC ACID 1 MG TABLET PO ONE (01:45)
[2020-06-07] MEDS ORDERED: MVI, ADULT NO.4 WITH VIT K 10 ML VIAL IV ONE (01:55)
[2020-06-07] MEDS ORDERED: THIAMINE 200 MG/2 ML VIAL. IV ONE (01:55)
--- NOTE | 2020-06-07 02:00 | EKG ---
[address] [address] Test Date: 2020-06-07 Test Time: 01:50:04 Pat Name: GABRIELA DURAN Department: Room: Gender: F Grade Tamper: : 1965 Requested By: BE COLINDRES Order Number: [id number] Reading MD: Nirmal Sapp Measurements Intervals [place] Rate: 77 P: 59 VT: 138 QRS: 66 QRSD: 72 T: 46 QT: 372 QTc: 423 Interpretive Statements SINUS RHYTHM NORMAL ECG RI6.02 Compared to ECG 08/04/2019 20:00:19 No significant changes Electronically Signed On 06-09-2020 10:39:05 CHEMICAL PRODUCTION TECHNICIAN by Nirmal Sapp
--- NOTE | 2020-06-07 02:07 | RAD ---
EXAM: CHEST ONE VIEW. HISTORY: Fall. COMPARISON: 08/04/2019. FINDINGS: A frontal view of the chest is obtained. The lungs are expanded to the 12th posterior ribs. The hemidiaphragms are not flattened. There are no confluent infiltrates. There is no pneumothorax or pleural effusion. The heart is not enlarged. Cholecystectomy clips are noted. IMPRESSION: 1. Hyperinflation. No confluent infiltrates. Electronically signed by: Cheryle Rosas MD (06/07/2020 2:04 AM) [facility]
[2020-06-07 04:23] LABS: BARBITURATES NEG (NEG); BENZODIAZEPINES NEG (NEG); CANNABINOIDS NEG (NEG); COCAINE NEG (NEG); METHADONE NEG (NEG); OPIATES NEG (NEG); PHENCYCLIDINE NEG (NEG)
[2020-06-07 04:25] LABS: AMPHETAMINE/METHAMPHETAMINE NEG (NEG)
[2020-06-07 04:32] LABS: BACTERIA,URINE 0 /HPF (0-FEW); BILIRUBIN,URINE NEG (NEG); CLARITY,URINE CLEAR; COLOR,URINE YELLOW; GLUCOSE,URINE NEG (NEG); NITRITE,URINE NEG (NEG); RBC,URINE 0 /HPF (0-2); SQUAMOUS EPITHELIAL CELL,UR OCC /LPF; UROBILINOGEN,URINE 0.2 mg/dL (0.2 mg/dL)
[2020-06-07] MEDS ORDERED: CEPHALEXIN 250 MG CAPSULE ONE (04:39)
[2020-06-07] MEDS ORDERED: CEPH-264 PO (04:41)
[2020-06-07] MEDS ORDERED: CEPHALEXIN 250 MG CAPSULE PO ONE (04:45)
== END 2020-06-07 04:50 | disposition home or self-care (01) ==
LOC: ER 01:14
DX: F10.229 Alcohol dependence with intoxication, unspecified (principal); E86.0 Dehydration; N39.0 Urinary tract infection, site not specified; R79.89 Other specified abnormal findings of blood chemistry; M19.90 Unspecified osteoarthritis, unspecified site; F41.9 Anxiety disorder, unspecified; F31.9 Bipolar disorder, unspecified; I11.0 Hypertensive heart disease with heart failure; I50.9 Heart failure, unspecified; J44.9 Chronic obstructive pulmonary disease, unspecified; E03.9 Hypothyroidism, unspecified; F20.9 Schizophrenia, unspecified; F17.210 Nicotine dependence, cigarettes, uncomplicated; F12.10 Cannabis abuse, uncomplicated; Z88.2 Allergy status to sulfonamides; Z88.5 Allergy status to narcotic agent; Y90.6 Blood alcohol level of 120-199 mg/100 ml
CPT/HCPCS: 36415; 71045; 80048; 80076; 80307; 81001; 83690; 83735; 83880; 84484; 85025; 85610; 85730; 87086; 93005; 96365; 96366; 99285; G0480; J7120

== ENCOUNTER 2020-06-21 19:24 | Emergency (ER) | payer OTHER, MEDICAID ==
[~2020-06-21] VITALS: Ht 162.6 cm; Wt 51.1 kg
[2020-06-21] MEDS ORDERED: IV NORMAL SALINE 1,000ML 1,000 ML IV ONE (20:00)
[2020-06-21] MEDS ORDERED: KETOROLAC 30 MG/ML VIAL. IVP ONE (20:00)
[2020-06-21 20:26] LABS: BASO % 0 % (0-3); EOS # 0.1 x10^3/uL (0.0-0.7); EOS % 2 % (0-3); HEMATOCRIT 43.3 % (36.0-47.0); HEMOGLOBIN 14.8 g/dL (12.0-15.5); LYMPH # 3.3 x10^3/uL (1.0-4.8); LYMPH % 36 % (24-48); MEAN CORPUSCULAR HEMOGLOBIN 34 pg (25-35); MEAN CORPUSCULAR HGB CONC 34 g/dL (31-37); MEAN CORPUSCULAR VOLUME 100 fL (79-100); MONO # 0.8 x10^3/uL (0.0-1.1); MONO % 9 % (0-9); NEUT # 4.8 x10^3uL (1.8-7.7); NEUT % 53 % (31-73); PLATELET COUNT 268 x10^3/uL (140-400); RED BLOOD COUNT 4.32 x10^6/uL (3.50-5.40); RED CELL DISTRIBUTION WIDTH 13.2 % (11.5-14.5)
[2020-06-21 20:29] LABS: CALCIUM 9.4 mg/dL (8.5-10.1); GFR 57.1; POTASSIUM 3.7 mmol/L (3.5-5.1)
[2020-06-21 20:35] LABS: ALBUMIN 3.9 g/dL (3.4-5.0); TOTAL BILIRUBIN 0.1 mg/dL (0.2-1.0); TOTAL PROTEIN 7.9 g/dL (6.4-8.2)
[2020-06-21 20:44] LABS: CLARITY,URINE CLEAR; COLOR,URINE AMBER; GLUCOSE,URINE NEG (NEG)
[2020-06-21 20:45] LABS: BACTERIA,URINE 0 /HPF (0-FEW); BILIRUBIN,URINE SMALL (NEG); NITRITE,URINE NEG (NEG); RBC,URINE 0 /HPF (0-2); UROBILINOGEN,URINE 0.2 mg/dL (0.2 mg/dL); WBC,URINE 0 /HPF (0-4)
--- NOTE | 2020-06-21 20:58 | PHYS DOC ---
Past History Past Medical History: UTI, Other Additional Past Medical Histor: CYSTS ON KIDNEYS (JUSTEN PEDROZA APRN) Past Surgical History: Appendectomy, Cholecystectomy, Hysterectomy (JUSTEN PEDROZA APRN) Smoking: Cigarettes Additional Smoking Information: PACK/DAY Alcohol Use: None Drug Use: Marijuana Social History Narrative: PAST DRUG ADDICTIONS, CLEAN X 5 MONTHS (JUSTEN PEDROZA APRN) Adult General Chief Complaint Chief Complaint: FLANK PAIN [place] [facility] HPI Patient is a 55-year-old female who presents to the emergency department with complaints of a sudden onset of right flank pain that radiates to her right lower abdomen and down towards her right lower groin area. Patient says this started at approximately 1900, patient did not take anything for the pain, patient states she came directly to the emergency department. Patient states she has a history of cysts on her kidneys, and is currently being treated for a urinary tract infection. Patient states she had an appendectomy and a hysterectomy several years ago. Patient describes her pain is a sharp 10/10 on a 1-10 pain scale. Patient denies any recent fever or chills, visual changes, nasal congestion or sore throat cough or shortness of breath. Patient denies chest pains, swelling of her extremities, nausea, vomiting, diarrhea, or constipation. Patient denies problems urinating, stating that since she has been on her antibiotics for her UTI that her urinary infection symptoms have resolved. Patient denies any skin rashes, headaches, focal weaknesses or sensory changes. Patient denies any swelling of her glands, any depressions, anxieties, homicidal or suicidal ideations. Patient denies any COVID-19 symptoms and does not wish to be tested for the COVID-19 virus today. (JUSTEN PEDROZA APRN) Review of Systems Review of Systems Constitutional: Denies fever or chills Eyes: Denies change in visual acuity, redness, or eye pain HENT: Denies nasal congestion or sore throat Respiratory: Denies cough or shortness of breath Cardiovascular: No additional information not addressed in HPI GI: Denies nausea, vomiting, constipation or diarrhea, complains of right flank pain that radiates to right lower quadrant and down to right lower groin area. : Denies dysuria or hematuria Musculoskeletal: Denies back pain or joint pain Integument: Denies rash or skin lesions Neurologic: Denies headache, focal weakness or sensory changes Psychiatric: Patient denies recent anxieties or depressions, denies homicidal or suicidal ideation. All other systems were reviewed and found to be within normal limits, except as documented in this note. (JUSTEN PEDROZA APRN) Current Medications Current Medications Current Medications Medications (Trade) Dose Ordered Sig/Michelle Start Time Stop Time Status Last Admin Dose Admin Fentanyl Citrate (Fentanyl 2ml Vial) 50 mcg 1X ONCE 06/21/20 21:00 06/21/20 21:01 Ketorolac Tromethamine (Toradol 30mg Vial) 30 mg 1X ONCE 06/21/20 20:00 06/21/20 20:01 DC 06/21/20 19:59 30 MG Sodium Chloride 1,000 ml @ 1,000 mls/hr 1X ONCE 06/21/20 20:00 06/21/20 20:59 06/21/20 19:57 1,000 MLS/HR (JUSTEN PEDROZA APRN) Allergies Allergies Allergies Coded Allergies Type Severity Reaction Last Updated Verified Sulfa (Sulfonamide Antibiotics) Allergy Mild 07/17/19 Yes morphine Allergy Mild 07/17/19 Yes (JUSTEN PEDROZA APRN) Physical Exam Physical Exam Constitutional: Well developed, well nourished, patient anxious, holding right flank area, non-toxic appearance. [] HENT: Normocephalic, atraumatic, bilateral external ears normal, oropharynx moist, no oral exudates, nose normal. [] Eyes: PERRLA, EOMI, conjunctiva normal, no discharge. [] Neck: Normal range of motion, no tenderness, supple, no stridor. [] Cardiovascular:Heart rate regular rhythm, no murmur [] Lungs & Thorax: Bilateral breath sounds clear to auscultation [] Abdomen: Bowel sounds normal, soft, no masses, no pulsatile masses. Tenderness to palpation right lower quadrant down to right lower pelvic area. Skin: Warm, dry, no erythema, no rash. [] Back: No tenderness, positive CVA tenderness to the right. Extremities: No tenderness, no cyanosis, no clubbing, ROM intact, no edema. [] Neurologic: Alert and oriented X 3, normal motor function, normal sensory function, no focal deficits noted. [] Psychologic: Affect normal, judgement normal, mood normal. [] (ADAMOVICH,JUSTEN CIVIL ENGINEER HELPER) Current Patient Data Vital Signs Vital Signs Date Time Temp Pulse Resp B/P (MAP) Pulse Ox O2 Delivery O2 Flow Rate FiO2 06/21/20 19:30 98.0 109 20 124/99 (107) 94 Room Air Lab Results Laboratory Tests Test 06/21/20 19:35 06/21/20 19:45 Urine Collection Type Unknown Urine Color Barbra Urine Clarity Clear Urine pH 5.0 Urine Specific [place] 1.025 Urine Protein Neg (NEG-TRACE) Urine Glucose (UA) Neg mg/dL (NEG) Urine Ketones (Stick) 15 mg/dL (NEG) Urine Blood Small (NEG) Urine Nitrite Neg (NEG) Urine Bilirubin Small (NEG) Urine Urobilinogen Dipstick 0.2 mg/dL (0.2 mg/dL) Urine Leukocyte Esterase Neg (NEG) Urine RBC 0 /HPF (0-2) Urine WBC 0 /HPF (0-4) Urine Squamous Epithelial Cells None /LPF Urine Bacteria 0 /HPF (0-FEW) White Blood Count 9.0 x10^3/uL (4.0-11.0) Red Blood Count 4.32 x10^6/uL (3.50-5.40) Hemoglobin 14.8 g/dL (12.0-15.5) Hematocrit 43.3 % (36.0-47.0) Mean Corpuscular Volume 100 fL (79-100) Mean Corpuscular Hemoglobin 34 pg (25-35) Mean Corpuscular Hemoglobin Concent 34 g/dL (31-37) Red Cell Distribution Width 13.2 % (11.5-14.5) Platelet Count 268 x10^3/uL (140-400) Neutrophils (%) (Auto) 53 % (31-73) Lymphocytes (%) (Auto) 36 % (24-48) Monocytes (%) (Auto) 9 % (0-9) Eosinophils (%) (Auto) 2 % (0-3) Basophils (%) (Auto) 0 % (0-3) Neutrophils # (Auto) 4.8 x10^3uL (1.8-7.7) Lymphocytes # (Auto) 3.3 x10^3/uL (1.0-4.8) Monocytes # (Auto) 0.8 x10^3/uL (0.0-1.1) Eosinophils # (Auto) 0.1 x10^3/uL (0.0-0.7) Basophils # (Auto) 0.0 x10^3/uL (0.0-0.2) Sodium Level 140 mmol/L (136-145) Potassium Level 3.7 mmol/L (3.5-5.1) Chloride Level 103 mmol/L (98-107) Carbon Dioxide Level 24 mmol/L (21-32) Anion Gap 13 (6-14) Blood Urea Nitrogen 10 mg/dL (7-20) Creatinine 1.0 mg/dL (0.6-1.0) Estimated GFR (Cockcroft-Gault) 57.1 BUN/Creatinine Ratio 10 (6-20) Glucose Level 133 mg/dL (70-99) H Calcium Level 9.4 mg/dL (8.5-10.1) Total Bilirubin 0.1 mg/dL (0.2-1.0) L Aspartate Amino Transferase (AST) 45 U/L (15-37) H Alanine Aminotransferase (ALT) 95 U/L (14-59) H Alkaline Phosphatase 61 U/L (46-116) Total Protein 7.9 g/dL (6.4-8.2) Albumin 3.9 g/dL (3.4-5.0) Albumin/Globulin Ratio 1.0 (1.0-1.7) Lipase 102 U/L (73-393) (JUSTEN PEDROZA APRN) EKG EKG [] (JUSTEN PEDROZA APRN) Radiology/Procedures Radiology/Procedures STATUS: REG ER ORD. PHYSICIAN: JUSTEN PEDROZA APRN REASON: RT FLANK PAIN/RT CVA TENDERNESS, R/O STONE PROCEDURE: CT ABDOMEN PELVIS WO CONTRAST Exam: CT abdomen/pelvis without intravenous contrast Indication: Right flank pain, right CVA tenderness Comparison: CT abdomen and pelvis 11/10/2019 Technique: Helical CT imaging performed of the abdomen and pelvis without the use of intravenous contrast. Sagittal and coronal reformats were obtained. One or more of the following individualized dose reduction techniques were utilized for this examination: 1. Automated exposure control 2. Adjustment of the mA and/or kV according to patient size 3. Use of iterative reconstruction technique. Findings: Inherently limited evaluation without intravenous contrast. Lower chest: Lung bases are clear. The heart is normal in size. Liver: Normal. Gallbladder/Biliary Tree: Gallbladder surgically absent. Bile ducts are unchanged. Pancreas: Normal. Spleen: Normal. Adrenal Glands: Normal. Kidneys/Ureters/Bladder: The right kidney and ureters are normal. Left kidney is unchanged with probable peripelvic cysts measuring approximately 2.4 cm in diameter. There is no urolithiasis. Bladder is normal. Reproductive Organs: Uterus is absent. No adnexal mass. Stomach, small bowel, and colon: Stomach, small bowel, and colon are normal. Vasculature: Abdominal aorta is normal in caliber. There is severe calcified aortic atherosclerosis. Lymph Nodes: No lymphadenopathy. Peritoneum and retroperitoneum: No free fluid or free air. Bones: The bones are demineralized. No acute fracture. There is mild thoracic degenerative disc disease. Impression: 1. No urolithiasis or hydronephrosis. Probable peripelvic cysts in the left kidney, better characterized on prior postcontrast exams. 2. Severe abdominal aortic atherosclerosis. Electronically signed by: Angelita Sy MD (06/21/2020 10:07 PM) [id number] DICTATED AND SIGNED BY: ANGELITA SY MD DATE: 06/21/202206 CC: JUSTEN PEDROZA APRN; MARIAN GUTIERREZ DO; ROSA MARIA CUBA MD ~ (JUSTEN PEDROZA APRN) Heart Score Risk Factors: Risk Factors: DM, Current or recent (<one month) smoker, HTN, HLP, family hi story of CAD, obesity. Risk Scores: Risk Factors: DM, Current or recent (<one month) smoker, HTN, HLP, family history of CAD, obesity. (JUSTEN PEDROZA APRN) Course & Med Decision Making Course & Med Decision Making Pertinent Labs and Imaging studies reviewed. (See chart for details) 55-year-old female reports emergency department with sudden onset of right flank pain. Patient's vital signs were stable. Patient's presentation consistent with kidney stone. Patient's urine had microscopic blood so a CAT scan was performed. CAT scan did not show any kidney stones present, house radiologist indicated no acute process, no changes from previous abdominal CT scans. Patient states that her pain went from a 10 down to a 0 and back to a 7/10 on a 1-10 pain scale after given 30 mg of Toradol. Patient was subsequently given a liter of fluids and 50 mcg of fentanyl which brought the patient's pain to a 0 which it remained throughout the the remainder of her ER stay. Patient's vital signs were stable and unremarkable throughout emergency department stay. Discussed with patient CT scan findings and lab results. Diagnosis is abdominal pain of unknown etiology, patient gave verbal understanding of discharge home instructions, strict follow-up with primary care physician early this week, return to ER concerns, patient had no further questions or concerns, patient discharged home without incident. (JUSTEN PEDROZA APRN) Dragon Disclaimer Dragon Disclaimer This electronic medical record was generated, in whole or in part, using a voice recognition dictation system. (JUSTEN PEDROZA APRN) Attending Co-Sign The patient was seen and interviewed as well as examined at the bedside. The chart was reviewed. The case was discussed. Agree with the plan of care. (MARIAN GUTIERREZ DO) Departure Departure: Impression: Primary Impression: Abdominal pain Disposition: 01 DC HOME SELF CARE/HOMELESS Condition: GOOD Referrals: ROSA MARIA CUBA MD (PCP) Patient Instructions: Abdominal Pain Additional Instructions: You are seen today for right flank pain/abdominal pain, your work-up in the emergency department included labs and CAT scan, there was no acute findings. Please follow-up with your Dr. Cuba this week, return to the emergency department for worsening symptoms or further concerns. Problem Qualifiers Primary Impression: Abdominal pain Abdominal location: right lower quadrant Qualified Codes: R10.31 - Right lower quadrant pain JUSTEN PEDROZA APRN Jun 21, 2020 20:58 MARIAN GUTIERREZ DO Jun 22, 2020 02:13
[2020-06-21 21:47] VITALS: BP 128/68
--- NOTE | 2020-06-21 22:09 | RAD ---
Exam: CT abdomen/pelvis without intravenous contrast Indication: Right flank pain, right CVA tenderness Comparison: CT abdomen and pelvis 11/10/2019 Technique: Helical CT imaging performed of the abdomen and pelvis without the use of intravenous contrast. Sagittal and coronal reformats were obtained. One or more of the following individualized dose reduction techniques were utilized for this examination: 1. Automated exposure control 2. Adjustment of the mA and/or kV according to patient size 3. Use of iterative reconstruction technique. Findings: Inherently limited evaluation without intravenous contrast. Lower chest: Lung bases are clear. The heart is normal in size. Liver: Normal. Gallbladder/Biliary Tree: Gallbladder surgically absent. Bile ducts are unchanged. Pancreas: Normal. Spleen: Normal. Adrenal Glands: Normal. Kidneys/Ureters/Bladder: The right kidney and ureters are normal. Left kidney is unchanged with probable peripelvic cysts measuring approximately 2.4 cm in diameter. There is no urolithiasis. Bladder is normal. Reproductive Organs: Uterus is absent. No adnexal mass. Stomach, small bowel, and colon: Stomach, small bowel, and colon are normal. Vasculature: Abdominal aorta is normal in caliber. There is severe calcified aortic atherosclerosis. Lymph Nodes: No lymphadenopathy. Peritoneum and retroperitoneum: No free fluid or free air. Bones: The bones are demineralized. No acute fracture. There is mild thoracic degenerative disc disease. Impression: 1. No urolithiasis or hydronephrosis. Probable peripelvic cysts in the left kidney, better characterized on prior postcontrast exams. 2. Severe abdominal aortic atherosclerosis. Electronically signed by: Angelita Sy MD (06/21/2020 10:07 PM) [id number]
== END 2020-06-21 22:56 | disposition home or self-care (01) ==
LOC: ER 19:24
DX: R10.31 Right lower quadrant pain (principal); F12.90 Cannabis use, unspecified, uncomplicated; F17.210 Nicotine dependence, cigarettes, uncomplicated; Z90.49 Acquired absence of other specified parts of digestive tract; Z90.89 Acquired absence of other organs; Z90.710 Acquired absence of both cervix and uterus; Z88.2 Allergy status to sulfonamides; Z88.6 Allergy status to analgesic agent
CPT/HCPCS: 36415; 74176; 80053; 81001; 83690; 85025; 96361; 96374; 96375; 99285; J1885; J3010; J7030

== ENCOUNTER 2020-06-23 15:52 | Emergency (ER) | payer OTHER, MEDICAID | END 2020-06-23 16:15 | disposition left against medical advice (07) | LOC: ER 15:52 | DX: M54.9 Dorsalgia, unspecified (principal); Z53.21 Procedure and treatment not carried out due to patient leaving prior to being seen by health care provider ==

== ENCOUNTER 2020-06-30 15:26 | Emergency (ER) | payer OTHER, MEDICAID ==
[~2020-06-30] VITALS: Ht 162.6 cm; Wt 51.1 kg
--- NOTE | 2020-06-30 16:33 | PHYS DOC ---
Past History Past Medical History: UTI, Other Additional Past Medical Histor: CYSTS ON KIDNEYS (JUSTEN PEDROZA APRN) Past Surgical History: Appendectomy, Cholecystectomy, Hysterectomy (JUSTEN PEDROZA APRN) Smoking: Cigarettes Alcohol Use: None Drug Use: Marijuana (JUSTEN PEDROZA APRN) Adult General Chief Complaint Chief Complaint: ABDOMINAL PAIN [facility] Patient is a 55 year old female who presents with complaints of a sudden onset all over abdominal pain after eating an early dinner today at approximately 1530. Patient denies any nausea vomiting diarrhea constipation. Patient denies any fever chills, visual changes, nasal congestion, cough, shortness of breath, denies chest pain dysuria, denies back pain, denies pain in her joints, denies skin rashes, denies headaches, focal weaknesses, or sensory changes. Patient denies any increased urination or increased thirst, denies swelling of her glands, denies depressions, anxieties, homicidal or suicidal ideations. Patient reports her pain is a 10 out of 10 on a 1-10 pain scale. Patient reports she has been on ciprofloxacin p.o. for her UTI for the past 3 months. Patient s tates her last dose was today. (JUSTEN PEDROZA APRN) Review of Systems Review of Systems Constitutional: Denies fever or chills Eyes: Denies change in visual acuity, redness, or eye pain HENT: Denies nasal congestion or sore throat Respiratory: Denies cough or shortness of breath Cardiovascular: No additional information not addressed in HPI GI: Complains of abdominal pain all over after eating an early dinner at 1530 today. Denies nausea, vomiting, constipation or diarrhea : Denies dysuria or hematuria Musculoskeletal: Denies back pain or joint pain Integument: Denies rash or skin lesions Neurologic: Denies headache, focal weakness or sensory changes Endocrine: Denies polyuria or polydipsia All other systems were reviewed and found to be within normal limits, except as documented in this note. (JUSTEN PEDROZA APRN) Current Medications Current Medications No medication changes from previous (JUSTEN PEDROZA APRN) Allergies Allergies Allergies Coded Allergies Type Severity Reaction Last Updated Verified Sulfa (Sulfonamide Antibiotics) Allergy Mild 07/17/19 Yes morphine Allergy Mild 07/17/19 Yes (JUSTEN PEDROZA APRN) Physical Exam Physical Exam Constitutional: Well developed, well nourished, no acute distress, non-toxic appearance. HENT: Normocephalic, atraumatic, bilateral external ears normal, oropharynx moist, no oral exudates, nose normal. Eyes: PERRLA, EOMI, conjunctiva normal, no discharge. Neck: Normal range of motion, no tenderness, supple, no stridor. Cardiovascular:Heart rate regular rhythm, no murmur Lungs & Thorax: Bilateral breath sounds clear to auscultation Abdomen: Bowel sounds normal, soft, no masses, no pulsatile masses. Patient complains of tenderness to palpation of left upper and right upper quadrant, no rebound tenderness, negative McBurney's point tenderness, no Willis sign Skin: Warm, dry, no erythema, no rash. Back: No tenderness, no CVA tenderness. Extremities: No tenderness, no cyanosis, no clubbing, ROM intact, no edema. Neurologic: Alert and oriented X 3, normal motor function, normal sensory function, no focal deficits noted. Psychologic: Affect normal, judgement normal, mood normal. (JUSTEN PEDROZA APRN) EKG EKG [] (JUSTEN PEDROZA APRN) Radiology/Procedures Radiology/Procedures [] (JUSTEN PEDROZA APRN) Heart Score Risk Factors: Risk Factors: DM, Current or recent (<one month) smoker, HTN, HLP, family history of CAD, obesity. Risk Scores: Risk Factors: DM, Current or recent (<one month) smoker, HTN, HLP, family history of CAD, obesity. (JUSTEN PEDROZA APRN) Course & Med Decision Making Course & Med Decision Making Laboratory Tests Test 06/30/20 16:00 06/30/20 16:46 Urine Collection Type Unknown Urine Color Barbra Urine Clarity Clear Urine pH 5.5 Urine Specific [place] 1.020 Urine Protein Neg Urine Glucose (UA) Neg mg/dL Urine Ketones (Stick) Neg mg/dL Urine Blood Neg Urine Nitrite Neg Urine Bilirubin Neg Urine Urobilinogen Dipstick 0.2 mg/dL Urine Leukocyte Esterase Small Urine RBC 0 /HPF Urine WBC Rare /HPF Urine Squamous Epithelial Cells Few /LPF Urine Bacteria 0 /HPF White Blood Count 10.6 x10^3/uL Red Blood Count 4.00 x10^6/uL Hemoglobin 13.8 g/dL Hematocrit 40.6 % Mean Corpuscular Volume 101 fL Mean Corpuscular Hemoglobin 35 pg Mean Corpuscular Hemoglobin Concent 34 g/dL Red Cell Distribution Width 13.5 % Platelet Count 214 x10^3/uL Neutrophils (%) (Auto) 72 % Lymphocytes (%) (Auto) 22 % Monocytes (%) (Auto) 6 % Eosinophils (%) (Auto) 1 % Basophils (%) (Auto) 0 % Neutrophils # (Auto) 7.6 x10^3uL Lymphocytes # (Auto) 2.3 x10^3/uL Monocytes # (Auto) 0.6 x10^3/uL Eosinophils # (Auto) 0.1 x10^3/uL Basophils # (Auto) 0.0 x10^3/uL Sodium Level 140 mmol/L Potassium Level 4.0 mmol/L Chloride Level 105 mmol/L Carbon Dioxide Level 30 mmol/L Anion Gap 5 Blood Urea Nitrogen 12 mg/dL Creatinine 1.0 mg/dL Estimated GFR (Cockcroft-Gault) 57.1 BUN/Creatinine Ratio 12 Glucose Level 100 mg/dL Lactic Acid Level 1.0 mmol/L Calcium Level 8.7 mg/dL Total Bilirubin 0.1 mg/dL Aspartate Amino Transf (AST/SGOT) 32 U/L Alanine Aminotransferase (ALT/SGPT) 66 U/L Alkaline Phosphatase 53 U/L Total Protein 6.5 g/dL Albumin 3.3 g/dL Albumin/Globulin Ratio 1.0 Current Medications Medications (Trade) Dose Ordered Sig/Michelle Route PRN Reason Start Time Stop Time Status Last Admin Dose Admin Sodium Chloride 1,000 ml @ 1,000 mls/hr 1X ONCE IV 06/30/20 16:45 06/30/20 17:44 DC 06/30/20 16:45 Ketorolac Tromethamine (Toradol 30mg Vial) 30 mg 1X ONCE IVP 06/30/20 16:45 06/30/20 16:46 DC 06/30/20 16:45 Pertinent Labs and Imaging studies reviewed. (See chart for details) 55-year-old patient reports to the ER today having abdominal pain. Patient states the pain happened suddenly right after eating. Patient denied any nausea vomiting or diarrhea. Patient did report taking ciprofloxacin for a UTI for the past 3 months. And ER work-up consisted of labs, a urine sample, imaging w as deferred at this time related to a negative CAT scan of her abdomen pelvis 9 days ago. Will consider further imaging pending labs and results of pain medication orders. Patient will be given 50 mics of IV fentanyl. Patient's complaints of pain were much greater than physical exam revealed. Patient is nontoxic in appearance. Lab results are equivocal, patient's urine was not infected, however did show trace amounts leukocyte Estrace, this is likely due to contaminated specimen. Upon reexamination patient is pain-free, patient asked for a prescription for Vicodin for home. Discussed with patient that I would not write for Vicodin during this visit, she needs to follow-up with her primary care for further evaluation of her abdominal pain episodes, will give referral to GI specialist, patient gave verbal understanding of discharge home instructions, return to ER precautions, patient had no further questions or concerns, patient discharged home without incident. Patient's abdominal pain most likely psychosomatic, unlikely gastroenteritis related to no nausea no vomiting no lower quadrant pains, patient does not have a gallbladder, this is unlikely pancreatitis related to negative CT exam and negative lab results. (JUSTEN PEDROZA APRN) Dragon Disclaimer Dragon Disclaimer This electronic medical record was generated, in whole or in part, using a voice recognition dictation system. (JUSTEN PEDROZA APRN) Departure Departure: Impression: Primary Impression: Abdominal pain Disposition: 01 DC HOME SELF CARE/HOMELESS Condition: IMPROVED Referrals: ROSA MARIA CUBA MD (PCP) ALICE MUSE MD Patient Instructions: Abdominal Pain Additional Instructions: I have given you consult to see GI specialist Dr. Turner, please consult with your Dr. Cuba soon, return to emergency department for worsening symptoms or other concerns. Attending Signature Attending Signature I have reviewed the PA/PRINT JOURNALIST's note and plan of care. I was available for consultation as needed during the patient's visit in the emergency department. I agree with the clinical impression, plan, and disposition. (JUSTEN VALENTINO DO) Problem Qualifiers Primary Impression: Abdominal pain Abdominal location: generalized Qualified Codes: R10.84 - Generalized abdominal pain JUSTEN PEDROZA APRN Jun 30, 2020 16:33 JUSTEN VALENTINO DO Jun 30, 2020 19:30
[2020-06-30 16:40] LABS: BACTERIA,URINE 0 /HPF (0-FEW); BILIRUBIN,URINE NEG (NEG); CLARITY,URINE CLEAR; COLOR,URINE AMBER; GLUCOSE,URINE NEG (NEG); NITRITE,URINE NEG (NEG); RBC,URINE 0 /HPF (0-2); UROBILINOGEN,URINE 0.2 mg/dL (0.2 mg/dL); WBC,URINE RARE /HPF (0-4)
[2020-06-30 16:41] LABS: SQUAMOUS EPITHELIAL CELL,UR FEW /LPF
[2020-06-30] MEDS: IV NORMAL SALINE 1,000ML 1,000 ML IV ONE (16:45)
[2020-06-30] MEDS: KETOROLAC 30 MG/ML VIAL. IVP ONE (16:45)
[2020-06-30 17:18] LABS: CALCIUM 8.7 mg/dL (8.5-10.1); GFR 57.1
[2020-06-30 17:20] LABS: BASO % 0 % (0-3); EOS # 0.1 x10^3/uL (0.0-0.7); EOS % 1 % (0-3); HEMATOCRIT 40.6 % (36.0-47.0); HEMOGLOBIN 13.8 g/dL (12.0-15.5); LYMPH # 2.3 x10^3/uL (1.0-4.8); LYMPH % 22 % (24-48); MEAN CORPUSCULAR HEMOGLOBIN 35 pg (25-35); MEAN CORPUSCULAR HGB CONC 34 g/dL (31-37); MEAN CORPUSCULAR VOLUME 101 fL (79-100); MONO # 0.6 x10^3/uL (0.0-1.1); MONO % 6 % (0-9); NEUT # 7.6 x10^3uL (1.8-7.7); NEUT % 72 % (31-73); PLATELET COUNT 214 x10^3/uL (140-400); RED CELL DISTRIBUTION WIDTH 13.5 % (11.5-14.5); WHITE BLOOD COUNT 10.6 x10^3/uL (4.0-11.0)
[2020-06-30 17:25] LABS: ALBUMIN 3.3 g/dL (3.4-5.0); TOTAL BILIRUBIN 0.1 mg/dL (0.2-1.0); TOTAL PROTEIN 6.5 g/dL (6.4-8.2)
[2020-06-30 18:30] VITALS: BP 161/72
== END 2020-06-30 18:29 | disposition home or self-care (01) ==
LOC: ER 15:26
DX: R10.11 Right upper quadrant pain (principal); R10.12 Left upper quadrant pain; F17.210 Nicotine dependence, cigarettes, uncomplicated; Z87.442 Personal history of urinary calculi; Z90.49 Acquired absence of other specified parts of digestive tract; Z90.89 Acquired absence of other organs; Z90.710 Acquired absence of both cervix and uterus
CPT/HCPCS: 36415; 80053; 81001; 83605; 83690; 85025; 87086; 96361; 96374; J1885; 99283-25; J7030

== ENCOUNTER → 2020-07-13 | Outpatient (CLI) | payer OTHER, MEDICAID ==
[2020-06-30 18:30] VITALS: BP 161/72
== END ==
LOC: LAB 09:55
PROVIDERS: ATTEND Internal Medicine Gastroenterology
DX: B19.20 Unspecified viral hepatitis C without hepatic coma (principal); K74.00 Hepatic fibrosis, unspecified
CPT/HCPCS: 87340; 87902

== ENCOUNTER → 2020-09-11 | Day surgery (SDC) | payer OTHER, MEDICAID ==
[~2020-09-11] MED LIST changes: +IPRATRPIUM/ALBUTEROL 0.5/2.5MG 3 ML NEBU. NEB PRN; +IV RINGERS SOLUTION,LACTATED 1,000 ML IV SCH; -LISI-338 PO; +LISI-517 PO; +MIDAZOLAM HCL PF 2 MG/2 ML VIAL. IV ONE; +ONDANSETRON PF 4 MG/2 ML VIAL. IV PRN; +PROPOFOL 10,000 MCG/ML (20ML) VIAL IV ONE
[2020-09-11 12:36] LABS: BARBITURATES NEG (NEG); BENZODIAZEPINES NEG (NEG); CANNABINOIDS POS (NEG); COCAINE NEG (NEG); METHADONE NEG (NEG); OPIATES NEG (NEG); PHENCYCLIDINE NEG (NEG)
[2020-09-11 12:38] LABS: AMPHETAMINE/METHAMPHETAMINE POS (NEG)
[2020-09-11 12:44] VITALS: BP 103/66
--- NOTE | 2020-09-11 12:55 | NUR ---
Pt arrived for colonoscopy/EGD. Staff had been unable to reach pt upon 6 attempts for preoperative teaching. Pt arrived, stating that she has completed her bowel prep, been NPO, and has had been having clear stools. Per management & physician, rapid COVID-19 testing completed, as well as a urine drug screen per anesthesia order due to pt history. Drug screen returned positive for amphetamines, as well as THC. Per Dr. Soriano, case will be canceled as anesthesia is unsafe while under the influence of recreational drugs. Pt voiced understanding and denied further questions.
== END | disposition home or self-care (01) ==
LOC: SURG 11:40
PROVIDERS: ATTEND Internal Medicine Gastroenterology
DX: Z12.11 Encounter for screening for malignant neoplasm of colon (principal); Z20.822 Contact with and (suspected) exposure to COVID-19; Z53.8 Procedure and treatment not carried out for other reasons; I13.0 Hypertensive heart and chronic kidney disease with heart failure and stage 1 through stage 4 chronic kidney disease, or unspecified chronic kidney disease; I50.9 Heart failure, unspecified; N18.9 Chronic kidney disease, unspecified; F41.9 Anxiety disorder, unspecified; M19.91 Primary osteoarthritis, unspecified site; F31.9 Bipolar disorder, unspecified; E07.9 Disorder of thyroid, unspecified; B18.2 Chronic viral hepatitis C; F17.210 Nicotine dependence, cigarettes, uncomplicated; Z87.440 Personal history of urinary (tract) infections; Z88.2 Allergy status to sulfonamides; Z88.5 Allergy status to narcotic agent; Z79.899 Other long term (current) drug therapy; Z79.82 Long term (current) use of aspirin; Z88.6 Allergy status to analgesic agent; Z98.890 Other specified postprocedural states; Z82.49 Family history of ischemic heart disease and other diseases of the circulatory system
CPT/HCPCS: 80307; 87426; C9803; J2704; U0003

== ENCOUNTER 2020-12-23 14:50 | Emergency (ER) | payer OTHER, MEDICAID ==
[~2020-12-23] VITALS: Ht 162.6 cm; Wt 51.1 kg
[~2020-12-23 14:50] MED LIST changes: -IPRATRPIUM/ALBUTEROL 0.5/2.5MG 3 ML NEBU. NEB PRN; -IV RINGERS SOLUTION,LACTATED 1,000 ML IV SCH; -MIDAZOLAM HCL PF 2 MG/2 ML VIAL. IV ONE; -ONDANSETRON PF 4 MG/2 ML VIAL. IV PRN; -PROPOFOL 10,000 MCG/ML (20ML) VIAL IV ONE
[2020-12-23 15:30] LABS: BASO % 0 % (0-3); EOS # 0.2 x10^3/uL (0.0-0.7); EOS % 3 % (0-3); HEMATOCRIT 40.3 % (36.0-47.0); HEMOGLOBIN 13.9 g/dL (12.0-15.5); LYMPH # 2.5 x10^3/uL (1.0-4.8); LYMPH % 33 % (24-48); MEAN CORPUSCULAR HEMOGLOBIN 35 pg (25-35); MEAN CORPUSCULAR HGB CONC 34 g/dL (31-37); MEAN CORPUSCULAR VOLUME 101 fL (79-100); MONO # 0.8 x10^3/uL (0.0-1.1); MONO % 11 % (0-9); NEUT # 4.1 x10^3uL (1.8-7.7); NEUT % 53 % (31-73); PLATELET COUNT 242 x10^3/uL (140-400); RED BLOOD COUNT 3.98 x10^6/uL (3.50-5.40); RED CELL DISTRIBUTION WIDTH 14.4 % (11.5-14.5); WHITE BLOOD COUNT 7.6 x10^3/uL (4.0-11.0)
[2020-12-23] MEDS ORDERED: IV NORMAL SALINE 1,000ML 1,000 ML IV ONE (15:30)
[2020-12-23 15:33] LABS: CALCIUM 8.7 mg/dL (8.5-10.1); CREATININE 0.8 mg/dL (0.6-1.0); GFR 73.9; POTASSIUM 3.6 mmol/L (3.5-5.1)
[2020-12-23 15:40] LABS: ALBUMIN 3.6 g/dL (3.4-5.0); ALBUMIN/GLOBULIN RATIO 0.9 (1.0-1.7); TOTAL BILIRUBIN 0.5 mg/dL (0.2-1.0); TOTAL PROTEIN 7.4 g/dL (6.4-8.2)
--- NOTE | 2020-12-23 16:30 | PHYS DOC ---
Past History Past Medical History: Hypertension, Hypothyroid, UTI, Other Additional Past Medical Histor: CYSTS ON KIDNEYS Past Surgical History: Appendectomy, Cholecystectomy, Hysterectomy Smoking: Cigarettes Alcohol Use: None Drug Use: Marijuana General Adult EDM: Chief Complaint: WEAKNESS/GENERALIZED HPI: HPI: Patient is a 55-year-old female who presented to ER for evaluation of generalized weakness and body ache. Patient spent 2 days in custodial, she got out yesterday. Since she feels weak and dehydrated. Patient denies any abdominal pain, no headache, no chest pain, no trouble breathing. Review of Systems: Review of Systems: Constitutional: Denies fever or chills Eyes: Denies change in visual acuity HENT: Denies nasal congestion or sore throat Respiratory: Denies cough or shortness of breath Cardiovascular: Denies chest pain or edema GI: Denies abdominal pain, nausea, vomiting, bloody stools or diarrhea : Denies dysuria Musculoskeletal: Denies back pain or joint pain. Positive for generalized body ache. Integument: Denies rash Neurologic: Denies headache, focal weakness or sensory changes. Positive for general weakness Endocrine: Denies polyuria or polydipsia Lymphatic: Denies swollen glands Psychiatric: Denies depression or anxiety Current Medications: Current Meds: Current Medications Medications (Trade) Dose Ordered Sig/Michelle Start Time Stop Time Status Last Admin Dose Admin Sodium Chloride 1,000 ml @ 1,000 mls/hr 1X ONCE 12/23/20 15:30 12/23/20 16:29 DC 12/23/20 15:24 1,000 MLS/HR Allergies: Allergies: Allergies Coded Allergies Type Severity Reaction Last Updated Verified Sulfa (Sulfonamide Antibiotics) Allergy Mild 07/17/19 Yes morphine Allergy Mild 07/17/19 Yes Physical Exam: PE: Constitutional: Well developed, well nourished, no acute distress, non-toxic appearance. [] HENT: Normocephalic, atraumatic, bilateral external ears normal, oral mucosa is wet, no oral exudates, nose normal. [] Eyes: PERRLA, EOMI, conjunctiva normal, no discharge. [] Neck: Normal range of motion, no tenderness, supple, no stridor. [] Cardiovascular:Heart rate regular rhythm, no murmur [] Lungs & Thorax: Bilateral breath sounds clear to auscultation [] Abdomen: Bowel sounds normal, soft, no tenderness, no masses, no pulsatile masses. [] Skin: Warm, dry, no erythema, no rash. [] Back: No tenderness, no CVA tenderness. [] Extremities: No tenderness, no cyanosis, no clubbing, ROM intact, no edema. [] Neurologic: Alert and oriented X 3, normal motor function, normal sensory function, no focal deficits noted. [] Psychologic: Affect normal, judgement normal, mood normal. [] Current Patient Data: Labs: Laboratory Tests Test 12/23/20 15:02 White Blood Count 7.6 x10^3/uL (4.0-11.0) Red Blood Count 3.98 x10^6/uL (3.50-5.40) Hemoglobin 13.9 g/dL (12.0-15.5) Hematocrit 40.3 % (36.0-47.0) Mean Corpuscular Volume 101 fL (79-100) H Mean Corpuscular Hemoglobin 35 pg (25-35) Mean Corpuscular Hemoglobin Concent 34 g/dL (31-37) Red Cell Distribution Width 14.4 % (11.5-14.5) Platelet Count 242 x10^3/uL (140-400) Neutrophils (%) (Auto) 53 % (31-73) Lymphocytes (%) (Auto) 33 % (24-48) Monocytes (%) (Auto) 11 % (0-9) H Eosinophils (%) (Auto) 3 % (0-3) Basophils (%) (Auto) 0 % (0-3) Neutrophils # (Auto) 4.1 x10^3uL (1.8-7.7) Lymphocytes # (Auto) 2.5 x10^3/uL (1.0-4.8) Monocytes # (Auto) 0.8 x10^3/uL (0.0-1.1) Eosinophils # (Auto) 0.2 x10^3/uL (0.0-0.7) Basophils # (Auto) 0.0 x10^3/uL (0.0-0.2) Sodium Level 142 mmol/L (136-145) Potassium Level 3.6 mmol/L (3.5-5.1) Chloride Level 108 mmol/L (98-107) H Carbon Dioxide Level 25 mmol/L (21-32) Anion Gap 9 (6-14) Blood Urea Nitrogen 14 mg/dL (7-20) Creatinine 0.8 mg/dL (0.6-1.0) Estimated GFR (Cockcroft-Gault) 73.9 BUN/Creatinine Ratio 18 (6-20) Glucose Level 118 mg/dL (70-99) H Calcium Level 8.7 mg/dL (8.5-10.1) Magnesium Level 2.0 mg/dL (1.8-2.4) Total Bilirubin 0.5 mg/dL (0.2-1.0) Aspartate Amino Transferase (AST) 36 U/L (15-37) Alanine Aminotransferase (ALT) 59 U/L (14-59) Alkaline Phosphatase 74 U/L (46-116) Creatine Kinase 224 U/L (26-192) H Total Protein 7.4 g/dL (6.4-8.2) Albumin 3.6 g/dL (3.4-5.0) Albumin/Globulin Ratio 0.9 (1.0-1.7) L Vital Signs: Vital Signs Date Time Temp Pulse Resp B/P (MAP) Pulse Ox O2 Delivery O2 Flow Rate FiO2 12/23/20 14:53 98.6 72 16 128/70 (89) 97 Nasal Cannula EKG: EKG: [] Radiology/Procedures: Radiology/Procedures: [] Heart Score: C/O Chest Pain: N/A Risk Factors: Risk Factors: DM, Current or recent (<one month) smoker, HTN, HLP, family history of CAD, obesity. Risk Scores: Score 0 - 3: 2.5% MACE over next 6 weeks - Discharge Home Score 4 - 6: 20.3% MACE over next 6 weeks - Admit for Clinical Observation Score 7 - 10: 72.7% MACE over next 6 weeks - Early Invasive Strategies Course & Med Decision Making: Course & Med Decision Making Pertinent Labs and Imaging studies reviewed. (See chart for details) Patient is a 55-year-old female who presented to ER for evaluation of general weakness and body ache, patient appeared to be dehydrated, patient was given IV fluid in ER, she felt much better. Patient would like to go home. Patient's was here to take her home Dragon Disclaimer: Cindy Disclaimer: This electronic medical record was generated, in whole or in part, using a voice recognition dictation system. Departure Departure: Impression: Primary Impression: Dehydration Additional Impression: Generalized weakness Disposition: HOME / SELF CARE / HOMELESS Condition: IMPROVED Referrals: ROSA MARIA ZENG MD (PCP) Follow up with your doctor this week for reevaluation Patient Instructions: Dehydration, Adult, Weakness Additional Instructions: Thank you for visiting our Emergency Department. We appreciate you trusting us with your care. If any additional problems come up don't hesitate to return to visit us. Please follow up with your primary care provider so they can plan additional care if needed and know about the problem that you had. If symptoms worsen come back to the Emergency Department. Any concerning symptoms that start such as chest pain, shortness of air, weakness or numbness on one side of the body, running high fevers or any other concerning symptoms return to the ER. JENNY LANCASTER DO December 23, 2020 16:30
[2020-12-23 16:36] VITALS: BP 126/70
[2020-12-23 16:42] LABS: BILIRUBIN,URINE SMALL (NEG); CLARITY,URINE HAZY; COLOR,URINE YELLOW; GLUCOSE,URINE NEG (NEG); UROBILINOGEN,URINE 0.2 mg/dL (0.2 mg/dL)
[2020-12-23 16:43] LABS: NITRITE,URINE NEG (NEG)
[2020-12-23 16:47] LABS: BACTERIA,URINE 0 /HPF (0-FEW); RBC,URINE OCC /HPF (0-2); SQUAMOUS EPITHELIAL CELL,UR FEW /LPF; WBC,URINE >40 /HPF (0-4)
== END 2020-12-23 16:36 | disposition home or self-care (01) ==
LOC: ER 14:50
DX: E86.0 Dehydration (principal); R53.1 Weakness; I10 Essential (primary) hypertension; E03.9 Hypothyroidism, unspecified; F17.210 Nicotine dependence, cigarettes, uncomplicated; Z87.440 Personal history of urinary (tract) infections; Z90.89 Acquired absence of other organs; Z90.49 Acquired absence of other specified parts of digestive tract; Z90.710 Acquired absence of both cervix and uterus; Z88.2 Allergy status to sulfonamides; Z88.5 Allergy status to narcotic agent
CPT/HCPCS: 36415; 80053; 81001; 82550; 83735; 85025; 87086; 96360; 99283; J7030

== ENCOUNTER 2021-03-12 17:31 | Emergency (ER) | payer MEDICAID, OTHER ==
[~2021-03-12] VITALS: Ht 162.6 cm; Wt 48.5 kg
--- NOTE | 2021-03-12 17:58 | PHYS DOC ---
Past History Past Medical History: Anxiety, Constipation, Gallstones, Hypertension, Hypothyroid, UTI, Other Additional Past Medical Histor: CYSTS ON KIDNEYS Past Surgical History: Appendectomy, Cholecystectomy, Hysterectomy Smoking: Cigarettes Alcohol Use: None Drug Use: Marijuana General Adult HPI: HPI: "....I ve been hurting..down here on my right abdomen.. It seems to go into my right back and hip... But it has been somewhat continuous tonight... But has had the pain off and on for last 2 months.. Patient is a 56 year old female who presents with above hx and complaints of right lower abdomen and pelvic pain. Patient states nothing makes the pain better. Movement seems to make the pain worse. Patient states pain seems to be worse after eating. Patient does report having a stool today. Has had some findings of constipation with her bowel movements. Patient denies any trauma. Patient denies any intake of bad food. Patient denies any recent travel. Patient denies any significant ill contacts. Has had some past history of kidney cysts, UTIs, hypoglycemia, and prior episodes of abdomen pain with no known etiology. Patient has undergone appendectomy's, cholecystectomy and hysterectomy. Has had possible diagnosis of adhesions as a cause of intermittent abdomen pain. Patient denies any history immunosuppression. Pat ient denies any fever chills. Patient does smoke tobacco and use marijuana. Patient normally follows with Dr. Cuba for care. Review of Systems: Review of Systems: Constitutional: Denies fever or chills Eyes: Denies change in visual acuity HENT: Denies nasal congestion or sore throat Respiratory: Denies cough or shortness of breath Cardiovascular: Denies chest pain or edema GI: Complains of right sided abdominal pain, nausea.. Denies, vomiting, bloody stools or diarrhea : Denies dysuria Musculoskeletal: Denies back pain or joint pain Integument: Denies rash Neurologic: Denies headache, focal weakness or sensory changes Endocrine: Denies polyuria or polydipsia Lymphatic: Denies swollen glands Psychiatric: Denies depression or anxiety Family History: Family History: Noncontributory to presentation Current Medications: Current Meds: See nursing for home meds Allergies: Allergies: Allergies Coded Allergies Type Severity Reaction Last Updated Verified Sulfa (Sulfonamide Antibiotics) Allergy Mild 07/17/19 Yes morphine Allergy Mild 07/17/19 Yes Physical Exam: PE: Constitutional: Moderate acute distress, non-toxic appearance. [] HENT: Normocephalic, atraumatic, bilateral external ears normal, oropharynx moist, no oral exudates, nose normal. [] Eyes: PERRLA, EOMI, conjunctiva normal, no discharge. [] Neck: Normal range of motion, no tenderness, supple, no stridor. [] Cardiovascular:Heart rate regular rhythm, no murmur [] Lungs & Thorax: Bilateral breath sounds equal apex with scattered wheezes on auscultation [] Abdomen: Bowel sounds normal, soft, right mid and lower quadrant abdomen tenderness, very distended, no masses, no pulsatile masses. Old surgery scars. No focal area of rebound but more generalized to right lower quadrant Skin: Warm, dry, no erythema, no rash. [] Back: No tenderness, no CVA tenderness. [] Extremities: No tenderness, no cyanosis, no clubbing, ROM intact, no edema. No cording. No psoas sign. Neurologic: Alert and oriented X 3, normal motor function, normal sensory function, no focal deficits noted. [] Psychologic: Affect anxious, judgement normal, mood normal. [] EKG: EKG: [] Radiology/Procedures: Radiology/Procedures: [[place] [address] IMAGING REPORT Signed PATIENT: GABRIELA DURAN ACCOUNT: [id number] : 1965 LOCATION: ER AGE: 56 SEX: F EXAM STATUS: REG ER ORD. PHYSICIAN: BE COLINDRES MD REASON: Pain Rt. lower quadrant PROCEDURE: ACUTE ABDOMEN SERIES XR ABDOMEN COMP ACUTE History: Reason: Pain Rt. lower quadrant / Spl. Instructions: / History: Technique: Upright and supine views the abdomen. Comparison: None. Findings: No consolidation or pleural effusion. No pneumothorax. Normal heart size. No pneumoperitoneum. Mild small bowel gas. Air and stool throughout the colon. Moderate colonic stool burden. No air-fluid levels. Surgical clips right upper quadrant. Multilevel lumbar spondylosis. Impression: 1. Nonobstructed bowel gas pattern. 2. Moderate colonic stool burden. Electronically signed by: Ole Martin DO (03/12/2021 9:08 PM) [facility] DICTATED AND SIGNED BY: OLE MARTIN DO DATE: 03/12/212106 CC: BE COLINDRES MD; ROSA MARIA CUBA MD ~[facility] 0 ][place] [address] IMAGING REPORT Signed PATIENT: GABRIELA DURAN ACCOUNT: [id number] : 1965 LOCATION: ER AGE: 56 SEX: F EXAM STATUS: REG ER ORD. PHYSICIAN: BE COLINDRES MD REASON: OMNI 300,75ML IV.OMNI 240,30ML PO.PAIN.HX KIDNEY INFECTION PROCEDURE: CT ABD PELV W/ORAL&IV CONTRAST CT ABDOMEN+PELVIS W History: Reason: OMNI 300,75ML IV.OMNI 240,30ML PO.PAIN.HX KIDNEY INFECTION / Spl. Instructions: / History: Technique: After the administration of intravenous contrast, CT imaging was performed of the abdomen and pelvis. Multiplanar images are reviewed. Exposure: One or more of the following individualized dose reduction techniques were utilized for this examination: 1. Automated exposure control 2. Adjustment of the mA and/or kV according to patient size 3. Use of iterative reconstruction technique. Comparison: June 21, 2020 Findings: Lower chest: No consolidation or pleural effusion. Abdomen and pelvis: Right hepatic lobe hypodensities, unchanged compared to prior. The spleen, adrenal glands, and pancreas are remarkable. Prior cholecystectomy. Biliary ductal dilatation, within normal range for postcholecystectomy state. Patent portal vein. Left parapelvic renal cyst unchanged. No hydronephrosis. No renal calculus. Small right renal hypodensities, likely cysts. Decompressed urinary bladder. Appendix not well seen. No findings to suggest acute appendicitis. No evidence of bowel obstruction. Oral contrast opacifies to the level of the transverse colon. No pathologic lymphadenopathy. No ascites. Prior hysterectomy. Extensive atheromatous plaque throughout the nonaneurysmal abdominal aorta. Bones: Chronic left posterior rib fractures. Multilevel lumbar spondylosis. Impression: 1. No acute abdominal or pelvic pathology. Electronically signed by: Ole Martin DO (03/12/2021 11:35 PM) [facility] DICTATED AND SIGNED BY: OLE MARTIN DO DATE: 03/12/212327 CC: BE COLINDRES MD; ROSA MARIA CUBA MD ~[facility]0 [address] [address] IMAGING REPORT Signed PATIENT: GABRIELA DURAN ACCOUNT: [id number] : 1965 LOCATION: ER AGE: 56 SEX: F EXAM STATUS: REG ER ORD. PHYSICIAN: BE COLINDRES MD REASON: Pain Rt. lower quadrant PROCEDURE: ACUTE ABDOMEN SERIES XR ABDOMEN COMP ACUTE History: Reason: Pain Rt. lower quadrant / Spl. Instructions: / History: Technique: Upright and supine views the abdomen. Comparison: None. Findings: No consolidation or pleural effusion. No pneumothorax. Normal heart size. No pneumoperitoneum. Mild small bowel gas. Air and stool throughout the colon. Moderate colonic stool burden. No air-fluid levels. Surgical clips right upper quadrant. Multilevel lumbar spondylosis. Impression: 1. Nonobstructed bowel gas pattern. 2. Moderate colonic stool burden. Electronically signed by: Ole Martin DO (03/12/2021 9:08 PM) [facility] DICTATED AND SIGNED BY: OLE MARTIN DO DATE: 03/12/212106 CC: BE COLINDRES MD; ROSA MARIA CUBA MD ~[facility]0 0 Heart Score: C/O Chest Pain: N/A HEART Score for Chest Pain: HEART Score for Chest Pain Response (Comments) Value Risk Factors 1 or 2 Risk Factors 1 Total 1 Risk Factors: Risk Factors: DM, Current or recent (<one month) smoker, HTN, HLP, family history of CAD, obesity. Risk Scores: Score 0 - 3: 2.5% MACE over next 6 weeks - Discharge Home Score 4 - 6: 20.3% MACE over next 6 weeks - Admit for Clinical Observation Score 7 - 10: 72.7% MACE over next 6 weeks - Early Invasive Strategies Course & Med Decision Making: Course & Med Decision Making Pertinent Labs and Imaging studies reviewed. (See chart for details) Patient remain on clear fluid diet only for the next 48 hours. No solids. No milk products. Must allow bowel rest. Patient to review ED work-up of her primary care. Patient encouraged to stop smoking. Patient encouraged to take MiraLAX or equivalent fiber supplement with fluids to prevent constipation. Patient return if any concerns. Take Tylenol and ibuprofen for pain. Impression : 1. Abdomen Pain 2. Constipation 3. Tobacco and Marijuana use 4. Multiple abdomen surgeries-May have adhesions contributing to her inter mittent episodes of abdomen pain [] Dragon Disclaimer: Dragon Disclaimer: This electronic medical record was generated, in whole or in part, using a voice recognition dictation system. Departure Departure: Referrals: ROSA MARIA CUBA MD (PCP) Cindy Disclaimer This chart was dictated in whole or in part using Voice Recognition software in a busy, high-work load, and often noisy Emergency Department environment. It may contain unintended and wholly unrecognized errors or omissions. Dragon Disclaimer This chart was dictated in whole or in part using Voice Recognition software in a busy, high-work load, and often noisy Emergency Department environment. It may contain unintended and wholly unrecognized errors or omissions. BE COLINDRES MD Mar 12, 2021 17:57
[2021-03-12 18:56] LABS: BARBITURATES NEG (NEG); BENZODIAZEPINES NEG (NEG); CANNABINOIDS POS (NEG); COCAINE NEG (NEG); METHADONE NEG (NEG); OPIATES NEG (NEG); PHENCYCLIDINE NEG (NEG)
[2021-03-12 19:06] LABS: AMPHETAMINE/METHAMPHETAMINE NEG (NEG)
[2021-03-12 19:08] LABS: BILIRUBIN,URINE NEG (NEG); CLARITY,URINE CLEAR; COLOR,URINE YELLOW; GLUCOSE,URINE NEG (NEG); NITRITE,URINE NEG (NEG); UROBILINOGEN,URINE 0.2 mg/dL (0.2 mg/dL)
[2021-03-12 19:09] LABS: BACTERIA,URINE 0 /HPF (0-FEW); RBC,URINE RARE /HPF (0-2); SQUAMOUS EPITHELIAL CELL,UR FEW /LPF; WBC,URINE RARE /HPF (0-4)
[2021-03-12] MEDS ORDERED: IV RINGERS SOLUTION,LACTATED 1,000 ML IV SCH (19:45)
[2021-03-12] MEDS ORDERED: FAMOTIDINE 20 MG/2 ML VIAL IVP ONE (19:45)
[2021-03-12] MEDS ORDERED: ONDANSETRON PF 4 MG/2 ML VIAL. IVP ONE (19:45)
[2021-03-12] MEDS ORDERED: KETOROLAC 30 MG/ML VIAL. IVP ONE (19:45)
[2021-03-12 20:06] LABS: BASO % 0 % (0-3); EOS # 0.2 x10^3/uL (0.0-0.7); EOS % 3 % (0-3); HEMATOCRIT 39.7 % (36.0-47.0); HEMOGLOBIN 13.8 g/dL (12.0-15.5); LYMPH # 3.3 x10^3/uL (1.0-4.8); LYMPH % 34 % (24-48); MEAN CORPUSCULAR HEMOGLOBIN 35 pg (25-35); MEAN CORPUSCULAR HGB CONC 35 g/dL (31-37); MEAN CORPUSCULAR VOLUME 100 fL (79-100); MONO # 0.8 x10^3/uL (0.0-1.1); MONO % 9 % (0-9); NEUT # 5.4 x10^3uL (1.8-7.7); NEUT % 55 % (31-73); PLATELET COUNT 236 x10^3/uL (140-400); RED BLOOD COUNT 3.96 x10^6/uL (3.50-5.40); RED CELL DISTRIBUTION WIDTH 13.5 % (11.5-14.5); WHITE BLOOD COUNT 9.7 x10^3/uL (4.0-11.0)
[2021-03-12 20:08] LABS: CALCIUM 8.6 mg/dL (8.5-10.1); CREATININE 0.6 mg/dL (0.6-1.0); GFR 102.7; POTASSIUM 3.5 mmol/L (3.5-5.1)
[2021-03-12 20:14] LABS: ALBUMIN 3.5 g/dL (3.4-5.0); DIRECT BILIRUBIN 0.1 mg/dL (0.0-0.2); TOTAL BILIRUBIN 0.3 mg/dL (0.2-1.0); TOTAL PROTEIN 7.1 g/dL (6.4-8.2)
[2021-03-12] MEDS ORDERED: CONTRAST GIVEN. MC PRN (20:45)
[2021-03-12] MEDS ORDERED: IOHEXOL 300 MG/ML 75 ML VIAL. IV ONE (20:45)
[2021-03-12] MEDS ORDERED: IOHEXOL 240 MG/ML 50ML VIAL. ONE (20:47)
--- NOTE | 2021-03-12 21:10 | RAD ---
XR ABDOMEN COMP ACUTE History: Reason: Pain Rt. lower quadrant / Spl. Instructions: / History: Technique: Upright and supine views the abdomen. Comparison: None. Findings: No consolidation or pleural effusion. No pneumothorax. Normal heart size. No pneumoperitoneum. Mild small bowel gas. Air and stool throughout the colon. Moderate colonic stool burden. No air-fluid levels. Surgical clips right upper quadrant. Multilevel lumbar spondylosis. Impression: 1. Nonobstructed bowel gas pattern. 2. Moderate colonic stool burden. Electronically signed by: Ole Martin DO (03/12/2021 9:08 PM) [facility]
--- NOTE | 2021-03-12 23:38 | RAD ---
CT ABDOMEN+PELVIS W History: Reason: OMNI 300,75ML IV.OMNI 240,30ML PO.PAIN.HX KIDNEY INFECTION / Spl. Instructions: / H istory: Technique: After the administration of intravenous contrast, CT imaging was performed of the abdomen and pelvis. Multiplanar images are reviewed. Exposure: One or more of the following individualized dose reduction techniques were utilized for thi s examination: 1. Automated exposure control 2. Adjustment of the mA and/or kV according to patient size 3. Use of iterative reconstruction technique. Comparison: June 21, 2020 Findings: Lower chest: No consolidation or pleural effusion. Abdomen and pelvis: Right hepatic lobe hypodensities, unchanged compared to prior. The spleen, adrena l glands, and pancreas are remarkable. Prior cholecystectomy. Biliary ductal dilatation, within chelsey l range for postcholecystectomy state. Patent portal vein. Left parapelvic renal cyst unchanged. No hydronephrosis. No renal calculus. Small right renal hypoden sities, likely cysts. Decompressed urinary bladder. Appendix not well seen. No findings to suggest acute appendicitis. No evidence of bowel obstruction. Oral contrast opacifies to the level of the transverse colon. No pathologic lymphadenopathy. No ascit es. Prior hysterectomy. Extensive atheromatous plaque throughout the nonaneurysmal abdominal aorta. Bones: Chronic left posterior rib fractures. Multilevel lumbar spondylosis. Impression: 1. No acute abdominal or pelvic pathology. Electronically signed by: Ole Martin DO (03/12/2021 11:35 PM) [facility]
[2021-03-13 00:13] VITALS: BP 120/70
[2021-03-13] MEDS ORDERED: MAGNESIUM HYDROXIDE 2,400 MG/30 ML ORAL.SUSP. PO ONE (00:15)
== END 2021-03-13 00:37 | disposition home or self-care (01) ==
LOC: ER 17:31
DX: K59.00 Constipation, unspecified (principal); F12.10 Cannabis abuse, uncomplicated; F17.210 Nicotine dependence, cigarettes, uncomplicated; I10 Essential (primary) hypertension; Z90.49 Acquired absence of other specified parts of digestive tract; Z98.51 Tubal ligation status; Z88.5 Allergy status to narcotic agent; Z88.2 Allergy status to sulfonamides
CPT/HCPCS: 36415; 74022; 74177; 80048; 80076; 80307; 81001; 85025; 96361; 96374; 96375; 99285; J1885; J2405; J3490; J7120; Q9967

== ENCOUNTER 2021-09-09 14:10 | Emergency (ER) | payer OTHER ==
[~2021-09-09] VITALS: Ht 160 cm; Wt 54.0 kg
[~2021-09-09 14:10] MED LIST changes: -CYCL-331 PO; +CYCL10TA19 PO; -DULO60CA6 PO; +DULO60CA7 PO; -LISI-517 PO; +LISI5TAB15 PO
[2021-09-09 14:13] VITALS: BP 149/68
[2021-09-09 14:44] LABS: BASO # 0.1 x10^3/uL (0.0-0.2); BASO % 1 % (0-3); EOS # 0.1 x10^3/uL (0.0-0.7); EOS % 2 % (0-3); HEMATOCRIT 39.7 % (36.0-47.0); HEMOGLOBIN 13.5 g/dL (12.0-15.5); LYMPH % 40 % (24-48); MEAN CORPUSCULAR HEMOGLOBIN 35 pg (25-35); MEAN CORPUSCULAR HGB CONC 34 g/dL (31-37); MEAN CORPUSCULAR VOLUME 103 fL (79-100); MONO # 1.1 x10^3/uL (0.0-1.1); MONO % 15 % (0-9); NEUT # 3.1 x10^3uL (1.8-7.7); NEUT % 42 % (31-73); PLATELET COUNT 262 x10^3/uL (140-400); RED BLOOD COUNT 3.86 x10^6/uL (3.50-5.40); RED CELL DISTRIBUTION WIDTH 14.6 % (11.5-14.5); WHITE BLOOD COUNT 7.4 x10^3/uL (4.0-11.0)
[2021-09-09] MEDS ORDERED: IV RINGERS SOLUTION,LACTATED 1,000 ML IV ONE ×2 (14:45→16:00)
[2021-09-09 14:54] LABS: CREATININE 0.7 mg/dL (0.6-1.0); GFR 85.9; POTASSIUM 3.5 mmol/L (3.5-5.1)
[2021-09-09 14:59] LABS: ALBUMIN 4.1 g/dL (3.4-5.0); ALBUMIN/GLOBULIN RATIO 1.1 (1.0-1.7); TOTAL BILIRUBIN 0.6 mg/dL (0.2-1.0); TOTAL PROTEIN 7.7 g/dL (6.4-8.2)
[2021-09-09 16:12] LABS: BACTERIA,URINE 0 /HPF (0-FEW); BILIRUBIN,URINE NEG (NEG); CLARITY,URINE HAZY; COLOR,URINE YELLOW; GLUCOSE,URINE 100 mg/dL (NEG); NITRITE,URINE NEG (NEG); RBC,URINE 0 /HPF (0-2); SQUAMOUS EPITHELIAL CELL,UR MOD /LPF; UROBILINOGEN,URINE 0.2 mg/dL (0.2 mg/dL)
[2021-09-09 16:15] LABS: BARBITURATES NEG (NEG); BENZODIAZEPINES NEG (NEG); CANNABINOIDS POS (NEG); COCAINE NEG (NEG); METHADONE NEG (NEG); OPIATES NEG (NEG); PHENCYCLIDINE NEG (NEG)
[2021-09-09 16:16] LABS: AMPHETAMINE/METHAMPHETAMINE POS (NEG)
--- NOTE | 2021-09-09 16:29 | PHYS DOC ---
Past History Past Medical History: Anxiety, Constipation, Gallstones, Hypertension, Hypothyroid, UTI, Other Additional Past Medical Histor: CYSTS ON KIDNEYS (MIGUEL MCCULLOUGH) Past Surgical History: No Surgical History (MIGUEL MCCULLOUGH) Smoking: Cigarettes Alcohol Use: Occasionally Drug Use: Marijuana, Methamphetamine (MIGUEL MCCULLOUGH) General Adult EDM: Chief Complaint: DRUG ABUSE HPI: HPI: Patient is a 56 year old female who presents with methamphetamine intoxication. Patient was dropped off in the emergency department by her neighbor. She has no other complaints other than, "I can't do it anymore with my sister." Patient reports her sister is "the one who convinced [her] to do it," referring to smoking meth. Last reported use is two days ago. She also reports marijuana use. (MIGUEL MCCULLOUGH) Review of Systems: Review of Systems: Unable to obtain secondary to patient's intoxicated status. (MIGUEL MCCULLOUGH) Current Medications: Current Meds: Current Medications Medications (Trade) Dose Ordered Sig/Michelle Start Time Stop Time Status Last Admin Dose Admin Lactated Ringer's 1,000 ml @ 1,000 mls/hr 1X ONCE 09/09/21 16:00 09/09/21 16:59 09/09/21 16:00 1,000 MLS/HR (MIGUEL MCCULLOUGH) Allergies: Allergies: Allergies Coded Allergies Type Severity Reaction Last Updated Verified Sulfa (Sulfonamide Antibiotics) Allergy Mild 07/17/19 Yes morphine Allergy Mild 07/17/19 Yes (MIGUEL MCCULLOUGH) Physical Exam: PE: Constitutional: Well developed, well nourished, no acute distress, patient appears older than stated age, psychomotor agitation. HENT: Normocephalic, atraumatic, bilateral external ears normal, nose normal. Eyes: EOMI, conjunctiva normal, no discharge. Neck: Normal range of motion, no stridor. Skin: Warm, dry, no erythema, no rash. Extremities: No tenderness, no cyanosis, no clubbing, ROM intact, no edema. Neurologic: Alert and oriented x3 (not oriented to time), no focal deficits noted. (MIGUEL MCCULLOUGH) Current Patient Data: Labs: Laboratory Tests Test 09/09/21 14:15 09/09/21 15:46 White Blood Count 7.4 x10^3/uL (4.0-11.0) Red Blood Count 3.86 x10^6/uL (3.50-5.40) Hemoglobin 13.5 g/dL (12.0-15.5) Hematocrit 39.7 % (36.0-47.0) Mean Corpuscular Volume 103 fL (79-100) H Mean Corpuscular Hemoglobin 35 pg (25-35) Mean Corpuscular Hemoglobin Concent 34 g/dL (31-37) Red Cell Distribution Width 14.6 % (11.5-14.5) H Platelet Count 262 x10^3/uL (140-400) Neutrophils (%) (Auto) 42 % (31-73) Lymphocytes (%) (Auto) 40 % (24-48) Monocytes (%) (Auto) 15 % (0-9) H Eosinophils (%) (Auto) 2 % (0-3) Basophils (%) (Auto) 1 % (0-3) Neutrophils # (Auto) 3.1 x10^3uL (1.8-7.7) Lymphocytes # (Auto) 3.0 x10^3/uL (1.0-4.8) Monocytes # (Auto) 1.1 x10^3/uL (0.0-1.1) Eosinophils # (Auto) 0.1 x10^3/uL (0.0-0.7) Basophils # (Auto) 0.1 x10^3/uL (0.0-0.2) Sodium Level 139 mmol/L (136-145) Potassium Level 3.5 mmol/L (3.5-5.1) Chloride Level 104 mmol/L (98-107) Carbon Dioxide Level 24 mmol/L (21-32) Anion Gap 11 (6-14) Blood Urea Nitrogen 22 mg/dL (7-20) H Creatinine 0.7 mg/dL (0.6-1.0) Estimated GFR (Cockcroft-Gault) 85.9 BUN/Creatinine Ratio 31 (6-20) H Glucose Level 87 mg/dL (70-99) Calcium Level 9.0 mg/dL (8.5-10.1) Total Bilirubin 0.6 mg/dL (0.2-1.0) Aspartate Amino Transferase (AST) 81 U/L (15-37) H Alanine Aminotransferase (ALT) 77 U/L (14-59) H Alkaline Phosphatase 63 U/L (46-116) Total Protein 7.7 g/dL (6.4-8.2) Albumin 4.1 g/dL (3.4-5.0) Albumin/Globulin Ratio 1.1 (1.0-1.7) Urine Collection Type Unknown Urine Color Yellow Urine Clarity Hazy Urine pH 6.0 Urine Specific [place] 1.025 Urine Protein Neg (NEG-TRACE) Urine Glucose (UA) 100 mg/dL (NEG) Urine Ketones (Stick) 15 mg/dL (NEG) Urine Blood Neg (NEG) Urine Nitrite Neg (NEG) Urine Bilirubin Neg (NEG) Urine Urobilinogen Dipstick 0.2 mg/dL (0.2 mg/dL) Urine Leukocyte Esterase Neg (NEG) Urine RBC 0 /HPF (0-2) Urine WBC 1-4 /HPF (0-4) Urine Squamous Epithelial Cells Mod /LPF Urine Bacteria 0 /HPF (0-FEW) Urine Mucus Slight /LPF Urine Opiates Screen Neg (NEG) Urine Methadone Screen Neg (NEG) Urine Barbiturates Neg (NEG) Urine Phencyclidine Screen Neg (NEG) Urine Amphetamine/Methamphetamine Pos (NEG) Urine Benzodiazepines Screen Neg (NEG) Urine Cocaine Screen Neg (NEG) Urine Cannabinoids Screen Pos (NEG) Urine Ethyl Alcohol Neg (NEG) Vital Signs: Vital Signs Date Time Temp Pulse Resp B/P (MAP) Pulse Ox O2 Delivery O2 Flow Rate FiO2 09/09/21 14:13 63 18 149/68 (95) 100 Room Air (MIGUEL MCCULLOUGH) Heart Score: C/O Chest Pain: No (MIGUEL MCCULLOUGH) Course & Med Decision Making: Course & Med Decision Making Pertinent Labs and Imaging studies reviewed. (See chart for details) Urinalysis and UDS performed in the department. Patient was provided with 2 L of IV fluids and a meal. Patient's much improved since arrival. She was discharged home with a list of community resources and advised to discontinue use of illicit drugs. (MIGUEL MCCULLOUGH) Dragon Disclaimer: Dragon Disclaimer: This electronic medical record was generated, in whole or in part, using a voice recognition dictation system. (MIGUEL MCCULLOUGH) Attending Co-Sign The patient was seen and interviewed as well as examined at the bedside. The chart was reviewed. The case was discussed. Agree with the plan of care. (MARIAN GUTIERREZ DO) Departure Departure: Impression: Primary Impression: Methamphetamine intoxication Disposition: HOME / SELF CARE / HOMELESS Condition: IMPROVED Referrals: ROSA MARIA ZENG MD (PCP) Patient Instructions: Methamphetamine Abuse, Complications Additional Instructions: EMERGENCY DEPARTMENT GENERAL DISCHARGE INSTRUCTIONS Thank you for coming to [facility] (ED) today and trusting us with you care. We trust that you had a positive experience in our Emergency Department. If you wish to speak to the department management, you may call the director at [phone]. YOUR FOLLOW UP INSTRUCTIONS ARE FOLLOWS: 1. Follow up with your primary care doctor. If you do not have a primary doctor, please ask for a resource list of physicians or clinics that may be able to assist you with follow up care. 2. The emergency provider has interpreted your imaging studies, if any were ordered. The radiology market specialist also reviewed them. If there is a change in the findings, you will be notified in 48 hours when at all possible. 3. If a lab test or culture has been done, your results will be reviewed and you will be notified if you need a change in treatment. 4. Follow instructions verbalized to you and refer to the printouts if needed. ADDITIONAL INSTRUCTIONS AND INFORMATION: 1. Your care today has been supervised by a physician who is specially trained in emergency care. Many problems require more than one evaluation for a complete diagnosis and treatment. We recommend that you schedule your follow up appointment as recommended to ensure complete treatment of you illness or injury. If you are unable to obtain follow up care and continue to have a problem, or if your condition worsens, we recommend that you return to the ED. 2. We are not able to safely determine your condition over the phone nor are we able to give sound medical advice over the phone. For these safety reasons, if you call for medical advice we will ask you to come to the ED for further evaluation. 3. If you have any questions regarding these discharge instructions please call the ED at [phone]. SAFETY INFORMATION: In the interest of safety, wellness, and injury prevention; we encourage you to wear your seat belt, if you smoke; quite smoking, and we encourage family to use a protective helmet for bicycling and other sporting events that present an increased risk for head injury. IF YOUR SYMPTOMS WORSEN OR NEW SYMPTOMS DEVELOP, OR YOU HAVE CONCERNS ABOUT YOUR CONDITION; OR IF YOUR CONDITION WORSENS WHILE YOU ARE WAITING FOR YOUR FOLLOW UP APPOINTMENT; EITHER CONTACT YOUR PRIMARY CARE DOCTOR, THE PHYSICIAN WHOSE NAME AND NUMBER YOU WERE GIVEN, OR RETURN TO THE ED IMMEDIATELY. MIGUEL MCCULLOUGH Sep 09, 2021 16:29 MARIAN GUTIERREZ DO Sep 09, 2021 17:37
== END 2021-09-09 17:45 | disposition home or self-care (01) ==
LOC: ER 14:10
DX: F15.229 Other stimulant dependence with intoxication, unspecified (principal); F41.9 Anxiety disorder, unspecified; I10 Essential (primary) hypertension; E03.9 Hypothyroidism, unspecified; F17.210 Nicotine dependence, cigarettes, uncomplicated; F12.10 Cannabis abuse, uncomplicated; Z87.440 Personal history of urinary (tract) infections; Z88.2 Allergy status to sulfonamides; Z88.5 Allergy status to narcotic agent
CPT/HCPCS: 36415; 80053; 80307; 81001; 85025; 96360; 96361; 99283; J7120

== ENCOUNTER 2021-09-14 12:56 | Emergency (ER) | payer OTHER ==
[~2021-09-14] VITALS: Ht 154.9 cm; Wt 52.3 kg
[2021-09-14] MEDS: KETOROLAC 60 MG/2 ML VIAL. IM ONE (15:13)
[2021-09-14 15:18] LABS: CLARITY,URINE CLEAR; COLOR,URINE YELLOW; GLUCOSE,URINE 100 mg/dL (NEG)
[2021-09-14 15:19] LABS: BACTERIA,URINE FEW /HPF (0-FEW); BILIRUBIN,URINE NEG (NEG); NITRITE,URINE NEG (NEG); RBC,URINE OCC /HPF (0-2); SQUAMOUS EPITHELIAL CELL,UR MOD /LPF; UROBILINOGEN,URINE 0.2 mg/dL (0.2 mg/dL)
--- NOTE | 2021-09-14 15:36 | RAD ---
Exam: CT of abdomen and pelvis without contrast INDICATION: Right flank pain, right upper quadrant. TECHNIQUE: Sequential axial images through the abdomen and pelvis obtained without IV contrast. Sagit larisa and coronal reformatted images were reconstructed from the axial data and reviewed. Exposure: One or more of the following in the visualized dose reduction techniques were utilized for this examination: 1. Automated exposure control 2. Adjustment of the MA and/or KV according to patient size 3. Use of iterative of reconstructive technique Comparisons: 03/12/2021 FINDINGS: Heart size is normal. No pericardial effusion. Visualized lung bases are clear. No pleural effusion. Evaluation of solid organs limited secondary to noncontrast technique. Liver, spleen, pancreas and adrenals are unremarkable. Gallbladder is absent. No perinephric inflammation or hydronephrosis. No renal or ureteral calculi are identified. Bladder is decompressed not well evaluated. Uterus is absent. No abnormal adnexal mass. Moderate amount stool noted in the colon. Appendix is nonidentified. No free intra-abdominal air or f luid. No obstruction. Abdominal aorta has normal course and caliber. No enlarged intra-abdominal lymph nodes are identified. No suspicious osseous lesions or acute fractures. IMPRESSION: 1. No renal or ureteral calculi. No evidence for obstructive uropathy. 2. Cholecystectomy changes. Electronically signed by: Dawn Delacruz MD (09/14/2021 3:33 PM) [facility]
--- NOTE | 2021-09-14 16:29 | PHYS DOC ---
Past History Past Medical History: Anxiety, Constipation, Gallstones, Hypertension, Hypothyroid, UTI, Other Additional Past Medical Histor: CYSTS ON KIDNEYS, Hepatitis C (MIGUEL MCCULLOUGH) Past Surgical History: Hysterectomy (MIGUEL MCCULLOUGH) Smoking: Cigarettes Alcohol Use: Sober Drug Use: Marijuana, Methamphetamine (MIGUEL MCCULLOUGH) General Adult EDM: Chief Complaint: FLANK PAIN HPI: HPI: Patient is a 56 year old female who presents with right-sided flank pain. Patient reports that this is a chronic issue that has been ongoing for about 8 months. She states that the pain was much worse this morning. Patient denies fever, chills, generalized weakness, dysuria, hematuria. (MIGUEL MCCULLOUGH) Review of Systems: Review of Systems: Constitutional: See HPI Eyes: Denies change in visual acuity, visual field deficits or discharge HENT: Denies ear pain, nasal congestion or sore throat Respiratory: Denies cough or shortness of breath Cardiovascular: Denies chest pain, palpitations or edema GI: Denies abdominal pain, nausea, vomiting, bloody stools or diarrhea : See HPI Musculoskeletal: See HPI Integument: Denies rash or other skin lesion Neurologic: Denies headache, focal weakness or sensory changes (MIGUEL MCCULLOUGH) Current Medications: Current Meds: Current Medications Medications (Trade) Dose Ordered Sig/Michelle Start Time Stop Time Status Last Admin Dose Admin Ketorolac Tromethamine (Toradol Im) 60 mg 1X ONCE 09/14/21 14:45 09/14/21 14:46 DC 09/14/21 15:13 60 MG (MIGUEL MCCULLOUGH) Allergies: Allergies: Allergies Coded Allergies Type Severity Reaction Last Updated Verified Sulfa (Sulfonamide Antibiotics) Allergy Mild 07/17/19 Yes morphine Allergy Mild 07/17/19 Yes (MIGUEL MCCULLOUGH) Physical Exam: PE: Constitutional: Thin, disheveled, appears older than stated age, no acute distress. HENT: Normocephalic, atraumatic, bilateral external ears normal, nose normal. Eyes: EOMI, conjunctiva normal, no discharge. Neck: Normal range of motion, no stridor. Abdomen: Bowel sounds normal, soft, no tenderness, no masses, no pulsatile masses. Skin: Warm, dry, no erythema, no rash. Back: No step-off, no reproducible tenderness, no CVA tenderness. Neurologic: Alert and oriented x4, no focal deficits noted. (MIGUEL MCCULLOUGH) Current Patient Data: Labs: Laboratory Tests Test 09/14/21 13:57 Urine Collection Type Clean catch Urine Color Yellow Urine Clarity Clear Urine pH 5.5 Urine Specific [place] 1.020 Urine Protein Neg (NEG-TRACE) Urine Glucose (UA) 100 mg/dL (NEG) Urine Ketones (Stick) Trace mg/dL (NEG) Urine Blood Neg (NEG) Urine Nitrite Neg (NEG) Urine Bilirubin Neg (NEG) Urine Urobilinogen Dipstick 0.2 mg/dL (0.2 mg/dL) Urine Leukocyte Esterase Small (NEG) Urine RBC Occ /HPF (0-2) Urine WBC 1-4 /HPF (0-4) Urine Squamous Epithelial Cells Mod /LPF Urine Bacteria Few /HPF (0-FEW) Vital Signs: Vital Signs Date Time Temp Pulse Resp B/P (MAP) Pulse Ox O2 Delivery O2 Flow Rate FiO2 09/14/21 14:12 97.9 65 16 130/77 (94) 98 Room Air (MIGUEL MCCULLOUGH) Radiology/Procedures: Radiology/Procedures: PROCEDURE: CT ABDOMEN PELVIS WO CONTRAST Exam: CT of abdomen and pelvis without contrast INDICATION: Right flank pain, right upper quadrant. TECHNIQUE: Sequential axial images through the abdomen and pelvis obtained without IV contrast. Sagittal and coronal reformatted images were reconstructed from the axial data and reviewed. Exposure: One or more of the following in the visualized dose reduction techniques were utilized for this examination: 1. Automated exposure control 2. Adjustment of the MA and/or KV according to patient size 3. Use of iterative of reconstructive technique Comparisons: 03/12/2021 FINDINGS: Heart size is normal. No pericardial effusion. Visualized lung bases are clear. No pleural effusion. Evaluation of solid organs limited secondary to noncontrast technique. Liver, spleen, pancreas and adrenals are unremarkable. Gallbladder is absent. No perinephric inflammation or hydronephrosis. No renal or ureteral calculi are identified. Bladder is decompressed not well evaluated. Uterus is absent. No abnormal adnexal mass. Moderate amount stool noted in the colon. Appendix is nonidentified. No free intra-abdominal air or fluid. No obstruction. Abdominal aorta has normal course and caliber. No enlarged intra-abdominal lymph nodes are identified. No suspicious osseous lesions or acute fractures. IMPRESSION: 1. No renal or ureteral calculi. No evidence for obstructive uropathy. 2. Cholecystectomy changes. Electronically signed by: Dawn Delacruz MD (09/14/2021 3:33 PM) MARLENI (MIGUEL MCCULLOUGH) Heart Score: C/O Chest Pain: No (MIGUEL MCCULLOUGH) Course & Med Decision Making: Course & Med Decision Making Pertinent Labs and Imaging studies reviewed. (See chart for details) Patient is a 56-year-old female with known polysubstance use disorder who presents with right-sided flank pain. CT abdomen pelvis ordered. Patient provided with Toradol for pain. CT reveals moderate amount of stool. Patient will be advised to hydrate and use MiraLAX, NSAIDs [id number]. Return precautions were provided. Patient understands and is agreeable with discharge plan. (MIGUEL MCCULLOUGH) Course & Med Decision Making I was the Attending physician on the above date of service of this patient. This patient was evaluated, examined, treated, and dispositioned from the emergency department by the mid-level practitioner. Although I was working at the time , no assistance was requested. Electronically signed, Sienna Graham DO (SIENNA GRAHAM DO) Cindy Disclaimer: Cindy Disclaimer: This electronic medical record was generated, in whole or in part, using a voice recognition dictation system. (MIGUEL MCCULLOUGH) Departure Departure: Impression: Primary Impression: Constipation Qualified Codes: K59.00 - Constipation, unspecified Disposition: HOME / SELF CARE / HOMELESS Condition: STABLE Referrals: PCP,NO (PCP) Patient Instructions: Constipation, Adult, [id number], Polyethylene Glycol powder Additional Instructions: EMERGENCY DEPARTMENT GENERAL DISCHARGE INSTRUCTIONS Thank you for coming to [facility] ([facility]) today and trusting us with you care. We trust that you had a positive experience in our Emergency Department. If you wish to speak to the department management, you may call the director at [phone]. YOUR FOLLOW UP INSTRUCTIONS ARE FOLLOWS: 1. Follow up with your primary care doctor. If you do not have a primary doctor, please ask for a resource list of physicians or clinics that may be able to assist you with follow up care. 2. The emergency provider has interpreted your imaging studies, if any were ordered. The radiology customer support specialist also reviewed them. If there is a change in the findings, you will be notified in 48 hours when at all possible. 3. If a lab test or culture has been done, your results will be reviewed and you will be notified if you need a change in treatment. 4. Follow instructions verbalized to you and refer to the printouts if needed. ADDITIONAL INSTRUCTIONS AND INFORMATION: 1. Your care today has been supervised by a physician who is specially trained in emergency care. Many problems require more than one evaluation for a complete diagnosis and treatment. We recommend that you schedule your follow up appointment as recommended to ensure complete treatment of you illness or injury. If you are unable to obtain follow up care and continue to have a problem, or if your condition worsens, we recommend that you return to the ED. 2. We are not able to safely determine your condition over the phone nor are we able to give sound medical advice over the phone. For these safety reasons, if you call for medical advice we will ask you to come to the ED for further evaluation. 3. If you have any questions regarding these discharge instructions please call the ED at [phone]. SAFETY INFORMATION: In the interest of safety, wellness, and injury prevention; we encourage you to wear your seat belt, if you smoke; quite smoking, and we encourage family to use a protective helmet for bicycling and other sporting events that present an increased risk for head injury. IF YOUR SYMPTOMS WORSEN OR NEW SYMPTOMS DEVELOP, OR YOU HAVE CONCERNS ABOUT YOUR CONDITION; OR IF YOUR CONDITION WORSENS WHILE YOU ARE WAITING FOR YOUR FOLLOW UP APPOINTMENT; EITHER CONTACT YOUR PRIMARY CARE DOCTOR, THE PHYSICIAN WHOSE NAME AND NUMBER YOU WERE GIVEN, OR RETURN TO THE ED IMMEDIATELY. MIGUEL MCCULLOUGH Sep 14, 2021 16:29 SIENNA GRAHAM DO Sep 15, 2021 06:10
[2021-09-14 16:40] VITALS: BP 122/71
== END 2021-09-14 16:50 | disposition home or self-care (01) ==
LOC: ER 12:56
DX: K59.00 Constipation, unspecified (principal); I10 Essential (primary) hypertension; E03.9 Hypothyroidism, unspecified; F17.210 Nicotine dependence, cigarettes, uncomplicated; Z87.440 Personal history of urinary (tract) infections; Z90.710 Acquired absence of both cervix and uterus; Z88.2 Allergy status to sulfonamides; Z88.5 Allergy status to narcotic agent
CPT/HCPCS: 74176; 81001; 87086; 96372; 99284; J1885

== ENCOUNTER 2021-09-16 02:44 | Emergency (ER) | payer OTHER ==
[~2021-09-16] VITALS: Ht 154.9 cm; Wt 45.0 kg
--- NOTE | 2021-09-16 02:51 | PHYS DOC ---
Past History Past Medical History: Anxiety, Constipation, Depression, Gallstones, Hypertension, Hypothyroid, UTI, Other Additional Past Medical Histor: CYSTS ON KIDNEYS, Hepatitis C (BE COLINDRES MD) Past Surgical History: Hysterectomy (BE COLINDRES MD) Smoking: Cigarettes Alcohol Use: Sober Drug Use: Marijuana, Methamphetamine (BE COLINDRES MD) General Adult HPI: HPI: .". I got some chest pain... ".. " I ve had it since yesterday.. it been constant.. but up and down.. .. it a /10 now.. ".. " It has been constant... " " I am worried because I got a court date .. today... My dog got loose.. and bit someone.. and now I got to show up in court.. " " They got my pit bull in the long term.. Derik is my baby... " "..I have a broken heart.. they taken away the only one that loves me... Derik loves.." Patient is a 56 year old female who presents with above hx and complaints of chest pain. Patient states she has had chest pain for the last few days. Patient states pain has been somewhat constant last 2 days. Patient states ov erall pain has gone up and down as to severity. On arrival to ED rated pain as 4 out of 10. Patient does still smoke. Patient seen in the emergency room on for right-sided flank pain. That pain had been ongoing for excess of 8 months. Patient denies any trauma today or yesterday. Patient denies any recent travel. Patient denies any specific ill contacts. Patient denies any methamphetamine use for over a month. Patient does report depression over her dog Derik being locked up for biting people. Patient does not have any specific suicide plan. Patient states the only one that loves her is "Derik "her dog/ Patient does have past medical history of anxiety, constipation, gallstones, hypertension, hypothyroidism, UTIs, kidney cysts, urinary tract infections, CHF, hepatitis C, methamphetamine, tobacco and marijuana use, patient has not follow-up with primary care. (BE COLINDRES MD) Review of Systems: Review of Systems: Constitutional: Denies fever or chills Eyes: Denies change in visual acuity HENT: Denies nasal congestion or sore throat Respiratory: Denies cough or shortness of breath Cardiovascular: Complaints of broken heart and chest pain GI: Denies abdominal pain, nausea, vomiting, bloody stools or diarrhea : Denies dysuria Musculoskeletal: Denies back pain or joint pain Integument: Denies rash Neurologic: Denies headache, focal weakness or sensory changes Endocrine: Denies polyuria or polydipsia Lymphatic: Denies swollen glands Psychiatric: Complaints of depression or anxiety- sad Derik her dog bit some one. She has Court date this morning. (BE COLINDRES MD) Family History: Family History: Noncontributory to presentation (BE COLINDRES MD) Current Medications: Current Meds: See nursing for home meds (BE COLINDRES MD) Allergies: Allergies: Allergies Coded Allergies Type Severity Reaction Last Updated Verified Sulfa (Sulfonamide Antibiotics) Allergy Mild 07/17/19 Yes morphine Allergy Mild 07/17/19 Yes (BE COLINDRES MD) Physical Exam: PE: Constitutional: Reports 4 out of 10 central chest pain and and moderate d istress, non-toxic appearance. [] HENT: Normocephalic, atraumatic, bilateral external ears normal, oropharynx moist, no oral exudates, nose normal. [] Eyes: PERRLA, EOMI, conjunctiva normal, no discharge. [] Neck: Normal range of motion, no tenderness, supple, no stridor. [] Cardiovascular:Heart rate regular rhythm, no murmur [] Lungs & Thorax: Bilateral breath sounds equal apex with scattered wheezes on auscultation [] Abdomen: Bowel sounds normal, soft, no tenderness, no masses, no pulsatile masses. Old surgical scars Skin: Warm, dry, no erythema, no rash. Poor turgor Back: No tenderness, no CVA tenderness. [] Extremities: No tenderness, no cyanosis, no clubbing, ROM intact, no edema. No cording appreciated Neurologic: Alert and oriented X 3, normal motor function, normal sensory function, no focal deficits noted. [] Psychologic: Affect anxious, states she is afraid and scared, worried about her dog Derik. judgement normal, mood depressed. (BE COLINDRES MD) EKG: EKG: My interpretation EKG shows a sinus rhythm at 71 bpm. Does have some bimodal T waves in the left leads. But no findings of acute STEMI of contralateral changes. Time of EKG is 252 hours [] (BE COLINDRES MD) Radiology/Procedures: Radiology/Procedures: [][address] [address] IMAGING REPORT Signed PATIENT: GABRIELA DURAN EACCOUNT: [id number] : 1965 LOCATION: ER AGE: 56 SEX: F EXAM STATUS: REG ER ORD. PHYSICIAN: BE COLINDRES MD REASON: Chest pain, nausea PROCEDURE: CHEST AP ONLY XR CHEST 1V Clinical History: Reason: Chest pain, nausea / Spl. Instructions: / History: Technique: AP view of the chest was obtained at 09/16/2021 3:35 AM. Comparison: June 07, 2020. Findings: The cardiomediastinal silhouette is normal. The pulmonary vasculature is normal. The lungs and pleural margins are clear. Impression: No evidence of an acute cardiopulmonary process. Electronically signed by: Genaro Armstrong III, MD (09/16/2021 4:05 AM) [facility] DICTATED AND SIGNED BY: GENARO ARMSTRONG III, MD DATE: 09/16/21 040 CC: BE COLINDRES MD; PCP,NO ~MTH0 0 (BE COLINDRES MD) Heart Score: C/O Chest Pain: Yes HEART Score for Chest Pain: HEART Score for Chest Pain Response (Comments) Value History Slighlty/Non-Suspicious 0 ECG Nonspecific Repolarizatio 1 Age >45 - < 65 1 Risk Factors 1 or 2 Risk Factors 1 Troponin < Normal Limit 0 Total 3 Risk Factors: Risk Factors: DM, Current or recent (<one month) smoker, HTN, HLP, family history of CAD, obesity. Risk Scores: Score 0 - 3: 2.5% MACE over next 6 weeks - Discharge Home Score 4 - 6: 20.3% MACE over next 6 weeks - Admit for Clinical Observation Score 7 - 10: 72.7% MACE over next 6 weeks - Early Invasive Strategies (BE COLINDRES MD) Course & Med Decision Making: Course & Med Decision Making Pertinent Labs and Imaging studies reviewed. (See chart for details) See PAT eval. Pt. to follow upwith primary. Pt. stop smoking. Pt. consider out pt stress testing. Pt. follow up at counseling center. and or RSI. Take a daily aspirin. Endorsed to Dr. Madsen.at shift change. He will make disposition. Impression: 1. Chest pain 2. Tobacco use 3. History Hepatitis C 4. History of methamphetamine use 5. History of tobacco use 6. Depressed-situational ( Derik - her dog is in dog pound after biting someone) [] (BE COLINDRES MD) Course & Med Decision Making 0600: Assumed care. Patient talking with the psychiatric livestock handler. Labs and imaging nonacute. Agree with HPI and examination, as well as MDM, as documented above. 0643. Psychiatric livestock handler has completed work and recommends discharge with a safety plan. Patient contracts for safety, denies active SI, and promises to return if she has any new or worsening symptoms, including thoughts of self harm. All questions are answered. Discharging at this time so patient may go to court. (BRYCE MADSEN MD) Dragon Disclaimer: Dragon Disclaimer: This electronic medical record was generated, in whole or in part, using a voice recognition dictation system. (BE COLINDRES MD) Departure Departure: Impression: Primary Impression: Other chest pain Additional Impression: Depression Disposition: 01 HOME / SELF CARE / HOMELESS Condition: IMPROVED Patient Instructions: Chest Pain (Nonspecific), Depression, Adult Dragon Disclaimer This chart was dictated in whole or in part using Voice Recognition software in a busy, high-work load, and often noisy Emergency Department environment. It may contain unintended and wholly unrecognized errors or omissions. (BE COLINDRES MD) BE COLINDRES MD Sep 16, 2021 02:51 BRYCE MADSEN MD Sep 16, 2021 06:45
[2021-09-16] MEDS ORDERED: ASPIRIN CHEWABLE 81 MG TABLET. PO ONE (03:30)
[2021-09-16] MEDS ORDERED: IV RINGERS SOLUTION,LACTATED 1,000 ML IV SCH (03:30)
[2021-09-16 03:45] LABS: BASO % 0 % (0-3); EOS # 0.2 x10^3/uL (0.0-0.7); EOS % 2 % (0-3); HEMATOCRIT 41.8 % (36.0-47.0); HEMOGLOBIN 14.4 g/dL (12.0-15.5); LYMPH % 35 % (24-48); MEAN CORPUSCULAR HEMOGLOBIN 35 pg (25-35); MEAN CORPUSCULAR HGB CONC 34 g/dL (31-37); MEAN CORPUSCULAR VOLUME 102 fL (79-100); MONO # 0.7 x10^3/uL (0.0-1.1); MONO % 9 % (0-9); NEUT # 4.7 x10^3uL (1.8-7.7); NEUT % 54 % (31-73); PLATELET COUNT 290 x10^3/uL (140-400); RED BLOOD COUNT 4.09 x10^6/uL (3.50-5.40); RED CELL DISTRIBUTION WIDTH 14.6 % (11.5-14.5); WHITE BLOOD COUNT 8.6 x10^3/uL (4.0-11.0)
[2021-09-16 03:47] LABS: BILIRUBIN,URINE NEG (NEG); CLARITY,URINE HAZY; COLOR,URINE YELLOW; GLUCOSE,URINE NEG (NEG)
[2021-09-16 03:48] LABS: BACTERIA,URINE FEW /HPF (0-FEW); NITRITE,URINE NEG (NEG); RBC,URINE 0 /HPF (0-2); SQUAMOUS EPITHELIAL CELL,UR FEW /LPF; UROBILINOGEN,URINE 0.2 mg/dL (0.2 mg/dL)
[2021-09-16 03:49] LABS: CREATININE 0.6 mg/dL (0.6-1.0); GFR 102.7; POTASSIUM 3.7 mmol/L (3.5-5.1)
[2021-09-16 03:50] LABS: BARBITURATES NEG (NEG); BENZODIAZEPINES NEG (NEG); CANNABINOIDS NEG (NEG); COCAINE NEG (NEG); METHADONE NEG (NEG); OPIATES NEG (NEG); PHENCYCLIDINE NEG (NEG)
[2021-09-16 03:51] LABS: AMPHETAMINE/METHAMPHETAMINE NEG (NEG)
[2021-09-16 03:56] LABS: DIRECT BILIRUBIN 0.1 mg/dL (0.0-0.2); MAGNESIUM 2.3 mg/dL (1.8-2.4); TOTAL BILIRUBIN 0.2 mg/dL (0.2-1.0); TOTAL PROTEIN 7.9 g/dL (6.4-8.2)
--- NOTE | 2021-09-16 03:59 | EKG ---
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
--- NOTE | 2021-09-16 04:08 | RAD ---
XR CHEST 1V Clinical History: Reason: Chest pain, nausea / Spl. Instructions: / History: Technique: AP view of the chest was obtained at 09/16/2021 3:35 AM. Comparison: June 07, 2020. Findings: The cardiomediastinal silhouette is normal. The pulmonary vasculature is normal. The lungs and pleura l margins are clear. Impression: No evidence of an acute cardiopulmonary process. Electronically signed by: Donny Pham III, MD (09/16/2021 4:05 AM) [facility]
[2021-09-16 04:26] LABS: INFLUENZA A PATIENT NEGATIVE (NEGATIVE); INFLUENZA B PATIENT NEGATIVE (NEGATIVE)
[2021-09-16] MEDS ORDERED: CONTRAST GIVEN. MC PRN (05:15)
[2021-09-16 05:17] VITALS: BP 148/92
[2021-09-16] MEDS ORDERED: IOHEXOL 300 MG/ML 75 ML VIAL. IV ONE (05:30)
--- NOTE | 2021-09-16 06:05 | RAD ---
CT OF THE ABDOMEN AND PELVIS WITH IV CONTRAST. History: Reason: Abdomen pain with constipation Comparison:None. Procedure: Contiguous axial images of the abdomen and pelvis were performed after the administration of 75 cc o f Omni 300 IV contrast. Oral contrast: No. Findings: There has been prior cholecystectomy. The appendix is not well seen. The urinary bladder is fairly di stended but otherwise appears normal. This constellation of the ramirez of the aorta without aneurysm o r dissection Liver: Small cysts in the dome Spleen: Unremarkable Pancreas: Unremarkable Adrenal Glands: Unremarkable Kidneys: There is multiple parapelvic cysts on the left There is no mass or lymphadenopathy. There is no free air. There is no free fluid. The urinary bladder appears normal. Impression: Stable appearance of the abdomen and pelvis. End Impression PQRS Compliance Statement: One or more of the following individualized dose reduction techniques were utilized for this examinat ion: 1. Automated exposure control 2. Adjustment of the mA and/or kV according to patient size 3. Use of iterative reconstruction technique Electronically signed by: Donny Pham III, MD (09/16/2021 6:03 AM) [facility]
== END 2021-09-16 06:46 | disposition home or self-care (01) ==
LOC: ER 02:44
DX: R07.89 Other chest pain (principal); F32.9 Major depressive disorder, single episode, unspecified; F41.9 Anxiety disorder, unspecified; E03.9 Hypothyroidism, unspecified; F17.210 Nicotine dependence, cigarettes, uncomplicated; F12.10 Cannabis abuse, uncomplicated; F15.10 Other stimulant abuse, uncomplicated; I11.0 Hypertensive heart disease with heart failure; I50.9 Heart failure, unspecified; Z20.822 Contact with and (suspected) exposure to COVID-19; Z86.19 Personal history of other infectious and parasitic diseases; Z87.440 Personal history of urinary (tract) infections; Z90.710 Acquired absence of both cervix and uterus; Z88.2 Allergy status to sulfonamides; Z88.5 Allergy status to narcotic agent
CPT/HCPCS: 36415; 71045; 74177; 80048; 80076; 80307; 81001; 81025; 82550; 83690; 83735; 83880; 84443; 84484; 85025; 85379; 85610; 85730; 87086; 87428; 93005; 96360; 96361; 99285; J7120; Q9967